=== PATIENT | male | born 1940 | race Caucasian/White ===

== ENCOUNTER 2017-11-28 16:20 | Inpatient (IN) ==
[2017-11-28] MEDS ORDERED: SALINE FLUSH 10ml SYRINGE IVF PRN (16:41)
[2017-11-28] MEDS ORDERED: METHYLPREDNISOLONE SOD SUCC 125mg/2ml INJECTION IVP ONE (16:41)
[2017-11-28] MEDS ORDERED: ALBUTEROL/IPRATROPIUM 2.5mg-0.5mg/3ml NEB AEROSOL SCH ×2 (16:45→21:00)
--- NOTE | 2017-11-28 16:47 | Emergency Department Report ---
SOB HPI - General Chief Complaint: Shortness of Breath/Dyspnea <Angelo Burger Q - 11/30/17 06:04 > Stated Complaint: difficulty breathing <Angelo Burger Q - 11/30/17 06:04> Time Seen by Provider: 11/28/17 16:30 <Angelo Burger Q - 11/30/17 06:04> Source: patient, family () <Kathy Guardado 11/28/17 16:50> Mode of arrival: ambulatory <Kathy Guardado 11/28/17 16:50> Limitations: no limitations <Kathy Guardado 11/28/17 16:50> - History of Present Illness Mr. Marino is a 76 year old male who comes to the ER with cc: shortness of air intermittently since dx pneumonia 3 weeks ago. Was not hospitalized but did take one week of abx, steroids and started on albuterol inhaler/nebulizer. He does not have home o2. Was seen last week by PCP Jannet Parks at for follow up and exertional o2 sats showed desaturation to 70s per . He was to get started on home o2. reports this never happened. Patient has been a lifelong smoker > 55 pack years and still smokes a few cigarettes daily. continues to smoke in the home. (Patient and do smell strongly of cigarette smoke.) Patient denies chest pain today, reports he did complain of some chest discomfort yesterday briefly at 3 pm. No recent fevers, no headaches, no body aches. Does have a cough. Does not have peripheral edema. <Kathy Guardado 11/28/17 16:50> MD Complaint: shortness of breath <Kathy Guardado 11/28/17 16:50> Onset (ago): week(s) (3) <Kathy Guardado 11/28/17 16:50> Context: recent illness, smoke/fume exposure <Kathy Guardado 11/28/17 16:50> Consistency/Duration: intermittent <Kathy Guardado 11/28/17 16:50> Associated symptoms: cough <Kathy Guardado 11/28/17 16:50> Treatment prior to arrival: bronchodilator <Kathy Guardado /09/18 16:50> - Related Data Home oxygen amount: none <Kathy Guardado 11/28/17 16:50> Home Medications Medication Instructions Recorded Confirmed Atorvastatin [Lipitor] 40 mg PO HS #0 02/20/11/28/17 Aspirin [Aspirin EC] 81 mg PO HS 11/28/17 11/28/17 Atenolol [Tenormin] 50 mg PO DAILY 11/28/17 11/28/17 Glucosa Mary 2Kcl/Chondroitin Mary 1 tab PO DAILY 11/28/17 11/28/17 [Glucosamine Chondroitin Caplet] Lisinopril [Prinivil] 20 mg PO DAILY 11/28/17 11/28/17 [place]-3/Dha/Epa/Fish Oil [Fish Oil 1,000 mg PO HS 11/28/17 11/28/17 1,000 mg Softgel] Vit A/Vit C/Vit E/Zinc/Copper 1 tab PO BID 11/28/17 11/28/17 [Preservision Areds Tablet] <Angelo Burger - 11/30/17 06:04> Allergies Allergy/AdvReac Type Severity Reaction Status Date / Time No Known Allergies Allergy Verified 11/28/17 16:26 <Angelo Burger - 11/30/17 06:04> Review of Systems All systems: reviewed and negative except as stated <Kathy Guardado 11/28/17 16:50> Constitutional: Denies: fever <GuardadoKathy 11/28/17 16:50> ENT: Denies: throat pain <GeoKathy 11/28/17 16:50> Cardiovascular: Denies: chest pain <GuardadoKathy 11/28/17 16:50> Respiratory: Reports: cough, dyspnea <GeoKathy 11/28/17 16:50> Genitourinary: Denies: dysuria <GuardadoMagnusKathy 11/28/17 16:50> Musculoskeletal: Denies: back pain <Kathy Guardado 11/28/17 16:50> Integumentary: Denies: rash <GuardadoKathy 11/28/17 16:50> Neurological: Denies: headache <Kathy Guardado 11/28/17 16:50> [facility] Patient Stated Medical History Cataracts Yes Hearing Loss Yes Other HEENT Yes: Glaucoma Hypertension Yes Gastroesophageal Reflux Yes Disease Osteoarthritis Yes <Angelo Burger 11/30/17 06:04> - Social History Smoking status: Current every day smoker <Kathy Guardado 11/28/17 16:50> Packs-years: 57 <[facility] 11/28/17 16:50> Substance use type: does not use <Kathy Guardado 11/28/17 16:50> Household members: spouse <Kathy Guardado 11/28/17 16:50> Physical Exam - Limitations Limitations: no limitations <Kathy Guardado 11/28/17 16:50> - General General appearance: alert, in no apparent distress <Kathy Guardado 11/28/17 16:50> - Head Head exam: atraumatic, normocephalic, normal inspection [facility]:50> - Eye Eye exam: Present: normal appearance, PERRL. Absent: scleral icterus, conjunctival injection <Kathy Guardado 11/28/17 16:50> - ENT ENT exam: Present: normal exam, normal oropharynx, mucous membranes moist, TM's normal bilaterally <[facility] 11/28/17 16:50> - Neck Neck exam: Present: normal inspection, full ROM, trachea midline. Absent: tenderness <[facility] 11/28/17 16:50> - Chest Chest inspection: Present: normal inspection. Absent: tenderness, rash <[facility] 11/28/17 16:50> - Respiratory Respiratory exam: Present: respiratory distress (mild), wheezes <[facility] 11/28/17 16:50> - Cardiovascular Cardiovascular exam: Present: regular rate, normal rhythm <GuardadoMagnusKathy L 05/09 16:50> - Abdominal Exam Abdominal exam: Present: soft <GuardadoMagnusKathy L 11/28/17 16:50> - Extremities Exam Extremities exam: Present: normal inspection, full ROM. Absent: tenderness, pedal edema <GuardadoKathy gómez - 11/28/17 16:50> - Skin Skin exam: Present: warm, dry, intact <Katyh Guardado - 11/28/17 16:50> - Neurological Exam Neurological exam: Present: alert, oriented X3 <Kathy Guardado - 11/28/17 16:50 > - Psychiatric Psychiatric exam: Present: normal affect, normal mood <Kathy Guardado - 16:50> Course - Consultations Consultation #1: Dr. Avelar <Kathy Guardado 11/28/17 17:47> Time: 17:45 (check ddimer and CTA if +, otherwise call for admit if -) <Kathy Guardado - 11/28/17 18:04> Vital Signs Temperature 98.5 F 11/28/17 16:26 Pulse Rate 69 11/28/17 16:26 Respiratory Rate 20 11/28/17 16:26 Blood Pressure 154/67 H 11/28/17 16:26 Pulse Oximetry 80 L 11/28/17 16:26 Temperature 96.3 F L 11/29/17 23:39 Pulse Rate 89 11/29/17 23:39 Respiratory Rate 20 11/30/17 04:27 Blood Pressure 137/62 11/29/17 23:39 Pulse Oximetry 90 11/30/17 04:27 <Angelo Burger - 11/30/17 06:04> Shortness of Breath/Dyspnea - Differential Diagnosis Likely: acute exacerbation of chronic obstructive airways disease, community acquired pneumonia <Kathy Guardado - 11/28/17 17:38> - Medical Records Attestation: I reviewed the patient's medical records. <Kathy Guardado - 17:38> - Lab Data Attestation: I reviewed the patient's lab results. <Kathy Guardado - 11/28/17 17:38> Result diagrams: 11/30/17 04:25 11/29/17 05:42 <Angelo Burger - 11/30/17 06:04> Lab Results 11/28/17 11/28/17 11/28/17 Range/Units 17:02 17:02 17:02 WBC 10.6 (4.5-11.0) T/MM3 RBC 4.72 (4.50-5.90) M/MM3 Hgb 15.0 (13.5-17.5) GM/DL Hct 48.0 (41-53) % MCV 101.7 H (80-100) UM3 MCH 31.8 (26-34) UUG MCHC 31.3 (31-37) GM/DL RDW Std Deviation 52.2 H (36.9-50.2) FL Plt Count 215 (130-400) T/MM3 MPV 10.0 (9.4-12.4) UM3 Immature Gran % (Auto) 0.5 (0.0-0.5) % Neut % (Auto) 70.7 H (33-66) % Lymph % (Auto) 13.5 L (23-45) % [place] % (Auto) 11.4 H (0-9.0) % Eos % (Auto) 3.6 (0-4) % Baso % (Auto) 0.3 (0-2) % Neut # (Auto) 7.5 (1.8-7.7) T/MM3 Lymph # (Auto) 1.4 (1-4.8) T/MM3 [place] # (Auto) 1.2 H (0-0.8) T/MM3 Eos # (Auto) 0.4 (0-0.5) T/MM3 Baso # (Auto) 0.0 (0-0.2) T/MM3 Abs Immat Gran (auto) 0.05 H (0.00-0.03) T/MM3 D-Dimer 182 (0-230) NG/ML Turbidity < 20 (0-20) Sodium 148 H (134-144) MEQ/L Potassium 4.6 (3.6-5) MEQ/L Chloride 102 (98-107) MEQ/L Carbon Dioxide 34 H (22-30) MEQ/L Anion Gap 12 (5-15) MEQ/L BUN 11.0 (9-20) MG/DL Creatinine 0.9 (0.8-1.5) mg/dL GFR Calculation 82 BUN/Creatinine Ratio 12 (6-26) RATIO Glucose 111 H (75-110) MG/DL Calculated Osmolality 284 H (261-280) MOSM/KG Calcium 9.1 (8.4-10.2) MG/DL Icterus Index < 2 (0-7) Troponin I < 0.012 (0-0.12) ng/ml NT-Pro-B Natriuret Pep 287 H (0-175) pg/mL Specimen Hemolysis < 15 (0-25) <Angelo Burger Q - 11/30/17 06:04> Lab Results 11/28/17 11/28/17 11/28/17 Range/Units 17:02 17:02 17:02 WBC 10.6 (4.5-11.0) T/MM3 RBC 4.72 (4.50-5.90) M/MM3 Hgb 15.0 (13.5-17.5) GM/DL Hct 48.0 (41-53) % MCV 101.7 H (80-100) UM3 MCH 31.8 (26-34) UUG MCHC 31.3 (31-37) GM/DL RDW Std Deviation 52.2 H (36.9-50.2) FL Plt Count 215 (130-400) T/MM3 MPV 10.0 (9.4-12.4) UM3 Immature Gran % (Auto) 0.5 (0.0-0.5) % Neut % (Auto) 70.7 H (33-66) % Lymph % (Auto) 13.5 L (23-45) % [place] % (Auto) 11.4 H (0-9.0) % Eos % (Auto) 3.6 (0-4) % Baso % (Auto) 0.3 (0-2) % Neut # (Auto) 7.5 (1.8-7.7) T/MM3 Lymph # (Auto) 1.4 (1-4.8) T/MM3 [place] # (Auto) 1.2 H (0-0.8) T/MM3 Eos # (Auto) 0.4 (0-0.5) T/MM3 Baso # (Auto) 0.0 (0-0.2) T/MM3 Abs Immat Gran (auto) 0.05 H (0.00-0.03) T/MM3 D-Dimer 182 (0-230) NG/ML Turbidity < 20 (0-20) Sodium 148 H (134-144) MEQ/L Potassium 4.6 (3.6-5) MEQ/L Chloride 102 (98-107) MEQ/L Carbon Dioxide 34 H (22-30) MEQ/L Anion Gap 12 (5-15) MEQ/L BUN 11.0 (9-20) MG/DL Creatinine 0.9 (0.8-1.5) mg/dL GFR Calculation 82 BUN/Creatinine Ratio 12 (6-26) RATIO Glucose 111 H (75-110) MG/DL Calculated Osmolality 284 H (261-280) MOSM/KG Calcium 9.1 (8.4-10.2) MG/DL Icterus Index < 2 (0-7) Troponin I < 0.012 (0-0.12) ng/ml NT-Pro-B Natriuret Pep 287 H (0-175) pg/mL Specimen Hemolysis < 15 (0-25) <Kathy Guardado L 11/28/17 17:10> - Radiology Data Attestation: I reviewed the patient's radiology results. <Kathy Guardado L 05/09 17:38> CXR -stable chest, no acute cardiopulmonary findings. ([place]) <Kathy Guardado L 11/28/17 17:38> - EKG Data EKG #1 EKG attestation: Yes: I reviewed and interpreted this EKG. <NuclaDana bowenn Q 11/30/17 06:04> Yes: I reviewed and interpreted this EKG. <Kathy Guardado L 05/09 17:10> EKG shows normal: sinus rhythm <Dana Burgern Q 11/30/17 06:04> sinus rhythm <GuardadoKathy L 11/28/17 17:10> Rate: normal <Dana Burgern Q 11/30/17 06:04> normal <Kathy Guardado L 11/28/17 17:10> Rhythm: NSR <Dana Burgern Q 11/30/17 06:04> NSR <Kathy Guardado L 11/28/17 17:10> [place]/QRS: normal <Dana Burgern Q 11/30/17 06:04> normal <GuardadoKathy L 11/28/17 17:10> Interpretation: no acute changes <Angelo Burger Q 11/30/17 06:04> no acute changes, normal EKG <Kathy Guardado - 11/28/17 17:10> Disposition Clinical Impression: Acute exacerbation of chronic obstructive airways disease , Tobacco dependence <Angelo Burger - 11/30/17 06:04> Disposition: 02 To [facility] <Angelo Burger - 11/30/17 06:04> Condition: Stable <Angelo Burger - 11/30/17 06:04> Instructions: <Angelo Burger - 11/30/17 06:04> Prescriptions: No Action Atorvastatin [Lipitor] 40 mg PO HS #0 Glucosa Mary 2Kcl/Chondroitin Mary [Glucosamine Chondroitin Caplet] 1 tab PO DAILY Aspirin [Aspirin EC] 81 mg PO HS Lisinopril [Prinivil] 20 mg PO DAILY Atenolol [Tenormin] 50 mg PO DAILY Vit A/Vit C/Vit E/Zinc/Copper [Preservision Areds Tablet] 1 tab PO BID [place]-3/Dha/Epa/Fish Oil [Fish Oil 1,000 mg Softgel] 1,000 mg PO HS < Angelo Burger - 11/30/17 06:04> Referrals: Jannet Parks APRN [Primary Care Provider] - <Angelo Burger - 11/30/17 06:04> Forms: <Angelo Burger - 11/30/17 06:04> - Seen By: midlevel <Kathy Guardado - 11/28/17 18:04>
[2017-11-28] MEDS ORDERED: ALBUTEROL/IPRATROPIUM 2.5mg-0.5mg/3ml NEB AEROSOL ONE (16:51)
--- NOTE | 2017-11-28 18:25 | History & Physical Report ---
History of Present Illness Date: 11/28/17 Chief complaint: Dyspnea HPI: Patient is a 76-year-old male who presents to the emergency room today for acute evaluation of dyspnea. He reports that he has had increased shortness of breath with cough for approximately 3 weeks. He was diagnosed with "pneumonia" approximately 3 weeks ago at which time he was treated with oral antibiotics, steroids and breathing treatments. Briefly, his symptoms seem to resolve. However, over the last 48 hours. They have worsened. Patient reports increased dyspnea with minimal exertion, and following coughing spells. On arrival to the emergency room today. Room air saturations were 80%. Further workup was obtained. CBC is unremarkable, sodium is slightly elevated at 148, CO2 34. Troponin is negative, d-dimer is normal at 182. EKG revels sinus rhythm. Continue to require 2-3 liters of oxygen by nasal cannula. He is tachypneic 28 times per minute. He does have a known history of tobacco use with a greater than [id number]. Reports ongoing cough for the past 3 weeks. He feels ordered of breath with exertion or following coughing spells. He denies having any fever, chills, chest pain or other can complaints. We did discuss advanced directives he does wish to be a full code. Review of Systems All systems PM: 10-point ROS was reviewed, no additional remarkable complaints except - Cardiovascular Cardiovascular: Present: dyspnea on exertion - Respiratory Respiratory: Present: cough, dyspnea, wheezing Past Medical History Medical History Updates: Hypertension. Hyperlipidemia. Coronary artery disease with history of CABG. Suspect COPD. Chronic tobacco dependence Surgical History: CABG x3-2005. Cardiac [id number]. [place] Family History: Father-heart disease Mother-lung disease Family History: As Above - Social History Smoking status: Current every day smoker Packs-years: 57 Substance use type: does not use Alcohol intake frequency: does not drink Housing: house Household members: spouse Current residence: Apartment/Private Home Social history: Resides in [place], [place] with . Primary care provider, Jannet leal APRN[facility] Considering changing to [facility] [place] [facility] Medications Medication Instructions Recorded Confirmed Type Atorvastatin [Lipitor] 40 mg PO HS #0 02/21/12 11/28/17 History Aspirin [Aspirin EC] 81 mg PO HS 11/28/17 11/28/17 History Atenolol [Tenormin] 50 mg PO DAILY 11/28/17 11/28/17 History Glucosa Mary 2Kcl/Chondroitin Mary 1 tab PO DAILY 11/28/17 11/28/17 History [Glucosamine Chondroitin Caplet] Lisinopril [Prinivil] 20 mg PO DAILY 11/28/17 11/28/17 History [place]-3/Dha/Epa/Fish Oil [Fish Oil 1,000 mg PO HS 11/28/17 11/28/17 History 1,000 mg Softgel] Vit A/Vit C/Vit E/Zinc/Copper 1 tab PO BID 11/28/17 11/28/17 History [Preservision Areds Tablet] Allergies Allergy/AdvReac Type Severity Reaction Status Date / Time No Known Allergies Allergy Verified 11/28/17 16:26 Exam Vital Signs: Temperature 98.5 F 11/28/17 16:26 Pulse Rate 76 11/28/17 17:34 Respiratory Rate 16 11/28/17 17:34 Blood Pressure 158/72 H 11/28/17 17:34 Pulse Oximetry 95 11/28/17 17:34 Telemetry Rhythm: Sinus Rhythm Height/Weight/BMI: Height 1.8 m Weight 92.5 kg - Constitutional Present: no acute distress, well nourished, well developed - Routine HEENT Exam Eye: Present: EOMI ENT: Present: mucous membranes moist, dentition normal - Routine Respiratory Exam Present: wheezes, diminished air movement (bases) - Routine Cardiovascular Exam Present: RRR, S1, S2. Absent: murmur - Routine Abdominal Exam Present: soft, normoactive bowel sounds, non distended. Absent: tenderness - Routine Extremities Exam Present: full ROM, normal capillary refill - Routine Back/Spine/Pelvis Exam Back/Spine: Present: full ROM - Routine Skin Exam Present: intact, dry, warm - Routine Neurological Exam Present: alert, oriented X3, CN II-XII intact, moving all extremities - Routine Psychiatric Exam Present: normal affect, cooperative Results - Labs CBC & Chem 7: 11/28/17 17:02 11/28/17 17:02 Assessment and Plan (1) Respiratory failure with hypoxia Current visit: Yes Status: Acute Assessment and Plan: Impression Acute respiratory failure with hypoxia-requiring 2-3 liters of oxygen. Acute COPD exacerbation Hypernatremia-present on admission Hypertension Coronary artery disease Dyslipidemia Chronic tobacco dependence- 55 pk yr Plan Admit patient. Inpatient status under care of Dr. Avelar for acute respiratory failure with hypoxia requiring oxygen. Patient was started on IV Rocephin for empiric antimicrobial coverage on the emergency room. We will continue this IV daily. Solu-Medrol 125 milligrams IV every 8 hours for pulmonary inflammation. Duoneb nebulizers 4 times a day and Pulmicort twice a day. PRN also available Encourage Tobacco dependence. Patient denies the need for a nicotine patch at time of admission. Will monitor patient. Cardiac telemetry given known history of coronary artery disease. Recheck BMP tomorrow morning to follow hypernatremia Will continue home aspirin, atenolol, Lipitor and lisinopril. Monitor blood pressures SCDs to bilateral lower extremity for DVT prophylaxis BAP 65 score for acute COPD exacerbation. Mortality is class II, indicating low mortality risk at time of admission Patient does wish to be a full code and this orders written Will discuss further orders and plan of care with attending, Dr. Avelar At time of discharge medical care will return to primary care provider, Jannet Parks- SMITA 11/28/2017-7:30 PM-I reviewed this chart, the patient history, and the [employer]'s/PA 's documented findings as above. We discussed and formulated the assessment and plan as above with the additions below.-Dr. Avelar The patient was seen on the medical floor accompanied by his and sister-in- law. He has a 55 pack year of smoking and continues to smoke. He developed what sounds like pneumonia about 3 weeks ago associated with cough and shortness of breath. He was started on breathing treatments and antibiotics and initially felt better and then started getting worse. He bought an oximeter and was noted to have low oxygen saturations. He has had cough with occasional yellow phlegm. He denies any recent fevers, chills or sweats. His appetite has been normal. He states he has been sleeping in a recliner for at least the past 3 weeks due to shortness of breath if he lies down flat. He has macular degeneration and severe vision difficulties. He has visual hallucinations likely secondary to his vision disturbance from macular degeneration. He states he will frequently wake up at night after a nightmare and flail about and knock things over. He will feel very panicked and short of breath. He has never been tested for sleep apnea and does not know if he snores, but he thinks he probably does. These episodes of waking up panicked and short of breath have been coming off and on for more than 3 weeks. On exam the patient is alert and in no acute distress. After talking for a while , he does become somewhat dyspneic. HEENT reveals sclerae to be anicteric and oropharynx is moist. Neck is supple. Chest reveals expiratory wheezes throughout. Cardiovascular reveals a regular rate and rhythm. Abdomen is soft and nontender. Extremities are free of edema. Skin is warm and dry and without rashes. Chest x-ray shows questionable right lower lobe infiltrate versus scarring versus other. D-dimer is normal Impression and plan Acute hypoxic respiratory failure (unknown if he has some component of chronic respiratory failure)-likely secondary to COPD exacerbation. We'll give supplemental oxygen, breathing treatments, Solu-Medrol. Place on continuous oximetry. Regarding orthopnea, will check echocardiogram. The patient would likely benefit from a pulmonary function test when his respiratory status has stabilized. We'll check sputum for Gram stain and WALL AND FLOOR TILER. Check a viral respiratory panel. PT and OT consult in the morning. He may benefit from outpatient sleep study to rule out sleep apnea DVT Prophylaxis: SCD's Resuscitation Status: Full Code - Time spent with patient Time with patient PN: 35 minutes - Physician Narrative Narrative: Date: 11/28/17 Time: 1812 Hospital Course Summary Disclaimer: The visit summary below is not to be considered part of the above Progress Note. Hospital Course: Impression Acute respiratory failure with hypoxia-requiring 2-3 liters of oxygen. Acute COPD exacerbation Hypernatremia-present on admission Hypertension Coronary artery disease Dyslipidemia Chronic tobacco dependence- 55 pk yr Plan Admit patient. Inpatient status under care of Dr. Avelar for acute respiratory failure with hypoxia requiring oxygen. Patient was started on IV Rocephin for empiric antimicrobial coverage on the emergency room. We will continue this IV daily. Solu-Medrol 125 milligrams IV every 8 hours for pulmonary inflammation. Duoneb nebulizers 4 times a day and Pulmicort twice a day. PRN also available Encourage Tobacco dependence. Patient denies the need for a nicotine patch at time of admission. Will monitor patient. Cardiac telemetry given known history of coronary artery disease. Will repeat serial troponin at 1700 today. Recheck BMP tomorrow morning to follow hypernatremia Will continue home aspirin, atenolol, Lipitor and lisinopril. Monitor blood pressures SCDs to bilateral lower extremity for DVT prophylaxis BAP 65 score for acute COPD exacerbation. Mortality is class II, indicating low mortality risk at time of admission Shunt does wish to be a full code and this orders written Will discuss further orders and plan of care with attending, Dr. Avelar At time of discharge medical care will return to primary care provider, Jannet Yadav APRN
[2017-11-28] MEDS ORDERED: ALBUTEROL/IPRATROPIUM 2.5mg-0.5mg/3ml NEB AEROSOL PRN (18:33)
[2017-11-28 18:53] VITALS: BMI 27.5
[2017-11-28] MEDS: CEFTRIAXONE 1 G in NS 100 ML IVP SCH (19:32)
[2017-11-28] MEDS ORDERED: ALBUTEROL 2.5mg/3ml (0.083%) NEB AEROSOL PRN (19:32)
[2017-11-28] MEDS: BUDESONIDE INH.SOLN 0.5mg/2ml NEB AEROSOL SCH (20:36)
[2017-11-28] MEDS: ALBUTEROL/IPRATROPIUM 2.5mg-0.5mg/3ml NEB AEROSOL SCH (20:36)
[2017-11-28] MEDS: ATORVASTATIN 40 MG TABLET PO SCH (21:02)
[2017-11-28] MEDS: ASPIRIN *EC* 81 MG TABLET PO SCH (21:06)
[2017-11-29] MEDS: SALINE FLUSH 10ml SYRINGE IV PRN ×2 (00:44→20:37)
[2017-11-29] MEDS: METHYLPREDNISOLONE SOD SUCC 125mg/2ml INJECTION IVP SCH ×4 (00:44→17:55)
[2017-11-29] MEDS: NS FLUSH BAG 500ml IV PRN (00:46)
[2017-11-29] MEDS: ALBUTEROL/IPRATROPIUM 2.5mg-0.5mg/3ml NEB AEROSOL SCH ×6 (01:03→21:41)
--- NOTE | 2017-11-29 08:23 | XRay Report ---
Indication: soa PROCEDURE: XR chest 2V: Encounter: Initial Comparison: 11/21/2017 and 02/01/2013 Findings: The examination is somewhat expiratory in nature which is causing some prominence of the interstitial markings. There is some atelectasis in the right lung base without definite pleural effusion. Heart size is normal. There is moderate degenerative disc disease of the thoracic spine. The vertebral body heights appear relatively well-preserved. The patient is status post median sternotomy. The trachea is midline. impression: Right basilar atelectasis and/or pneumonia. Follow-up to resolution is recommended. .
[2017-11-29] MEDS: BUDESONIDE INH.SOLN 0.5mg/2ml NEB AEROSOL SCH ×2 (08:43→21:41)
[2017-11-29] MEDS: ATENOLOL 50 MG TABLET PO SCH (09:09)
[2017-11-29] MEDS: CEFTRIAXONE 1 G in NS 100 ML IVP SCH ×2 (09:09→10:57)
[2017-11-29] MEDS: LISINOPRIL 20 MG TABLET PO SCH (09:09)
--- NOTE | 2017-11-29 10:49 | Progress Note ---
- Date 11/29/17 Subjective: F/U: acute respiratory failure with hypoxia, acute COPD exacerbation. Fab is seen while sitting up in his chair, watching TV, having completed all his breakfast. He reports that he is feeling a little better today. He continues to have dyspnea and continues to require 2.5-3L NC oxygen to maintain SAO2. He does not use oxygen at home. He reports that he became increasingly dyspneic and "wheezy" while ambulating this morning despite wearing oxygen. He remains afebrile. No chest pain, abdominal pain, nausea, vomiting or dysuria. His appetite is stable. Labs revealed mild hyperkalemia (K 5.1) though specimen was hemolyzed at 120, an most likely does not reflex an accurate value. Objective Vital signs: Temperature 97 F 11/29/17 08:00 Pulse Rate 86 11/29/17 08:00 Respiratory Rate 18 11/29/17 08:43 Blood Pressure 133/72 11/29/17 08:00 Pulse Oximetry 92 11/29/17 08:43 Rhythm: Sinus Tachycardia Height/Weight/BMI: Height 5 ft 11 in Weight 204 lb 12.951 oz Body Mass Index 27.5 Comments: Sitting up in recliner, watching TV. Conversational dyspnea at 3-4 words with audible wheezing at times; currently on 3L NC. - Constitutional Present: no acute distress, well nourished, well developed, cooperative - Routine HEENT Exam Head: Present: normocephalic, atraumatic Eye: Present: PERRL. Absent: conjunctival icterus ENT: Present: mucous membranes moist, oropharynx clear - Routine Respiratory Exam Present: accessory muscle use, dyspnea, decreased breath sounds, rhonchi, wheezes, diminished air movement Comments: course, wheezing breath sounds bilaterally with diminished air movement in bases ; no cough; conversational dyspnea t 3-4 words and occasional audible wheezing. - Routine Cardiovascular Exam Present: RRR, S1, S2 - Routine Abdominal Exam Present: soft, normoactive bowel sounds, non distended, non tender - Routine Extremities Exam Present: edema (trace), full ROM, pulses intact - Routine Back/Spine/Pelvis Exam Back/Spine: Present: full ROM. Absent: vertebral tenderness - Routine Musculoskeletal Exam Musculoskeletal: Present: moving extremities well - Routine Skin Exam Present: intact, dry, warm. Absent: jaundice Comments: afebrile. - Routine Neurological Exam Present: alert, oriented X3, moving all extremities, normal speech - Routine Lymphatic Exam Lymphatic: Absent: lymphedema - Routine Psychiatric Exam Present: normal affect, cooperative Results - Labs CBC & Chem 7: 11/29/17 05:42 11/29/17 05:42 Assessment and Plan (1) Respiratory failure with hypoxia Current visit: Yes Status: Acute Assessment and Plan: Impression Acute respiratory failure with hypoxia-requiring 2-3 liters of oxygen. Acute COPD exacerbation Hypernatremia-present on admission Hypertension Coronary artery disease Dyslipidemia Chronic tobacco dependence- 55 pk yr Macular degeneration with visual loss/visual hallucinations Plan - 11/29/17: Patient continues to require 2-3L oxygen - denies home oxygen use. Increased dyspnea with ambulation. Course and wheezing breath sounds bilaterally with decreased air movement, specifically in bases. Continue Rocephin for empiric antimicrobial coverage - day 2. Recheck CXR in AM. Patient remains afebrile. Maybe able to discontinue antibiotics. Will try and obtain sputum culture. Continue Solu-Medrol 125 mg IV every 8 hours for pulmonary inflammation. DuoNeb nebulizers 4 times a day and Pulmicort twice a day. PRN also available. Encourage tobacco cessation. RT for smoking cessation counselling. SCDs to bilateral lower extremity for DVT prophylaxis BAP 65 score for acute COPD exacerbation. Mortality is class II, indicating low mortality risk at time of admission. Echocardiogram obtained given orthopnea - results pending. Recommend pulmonary function testing once respiratory status stabilized. Consider pulmonary consult and pulmonary clinic upon discharge. Patient would benefit from outpatient sleep study to evaluate for sleep apnea. Recheck labs in AM to monitor blood counts, electrolytes and renal function. DVT Prophylaxis: SCD's Resuscitation Status: Full Code - Time spent with patient Time with patient PN: 25 minutes - Physician Narrative Physician: Talia Vargas MD Narrative: Date: 11/29/17 Time: 1829 I have independently evaluated and examined this patient. I reviewed the chart, the patient's history, and the [employer]/PA's documented findings as above. We discussed and formulated the assessment and plan as above with additions as below: Mr. Marino was seen earlier today and continues to describe feeling as though his breathing "plugs up"; breathing treatments help and he feels better overall with oxygen. He does have worsening of symptoms with exertion. NAD at rest, speaks forcefully and become slightly short of breath Respirations were nonlabored but there was diffuse expiratory wheezing throughout the anterior and posterior lung arvizu Respiratory viral panel negative Echo with ejection fraction 57%, PA pressure 25, trace TR-discussed with cardiology Oxygenation borderline on 3 L-may require higher flow rate. Chest x-ray reviewed by myself-minor atelectasis but no evidence of infiltrate. Some flattening of the diaphragms. Continue treatment for COPD exacerbation. Appears likely the patient will require oxygen at discharge. Current findings reviewed with the patient's daughter. PT has recommended discharge to IRU when medically stable due to fall risk and deconditioning. Consult Dr. Lyles-notified. Hospital Course Summary Disclaimer: The visit summary below is not to be considered part of the above Progress Note. Hospital Course: Impression Acute respiratory failure with hypoxia-requiring 2-3 liters of oxygen. Acute COPD exacerbation Hypernatremia-present on admission Hypertension Coronary artery disease Dyslipidemia Chronic tobacco dependence- 55 pk yr Plan Admit patient. Inpatient status under care of Dr. Avelar for acute respiratory failure with hypoxia requiring oxygen. Patient was started on IV Rocephin for empiric antimicrobial coverage on the emergency room. We will continue this IV daily. Solu-Medrol 125 milligrams IV every 8 hours for pulmonary inflammation. Duoneb nebulizers 4 times a day and Pulmicort twice a day. PRN also available Encourage Tobacco dependence. Patient denies the need for a nicotine patch at time of admission. Will monitor patient. Cardiac telemetry given known history of coronary artery disease. Will repeat serial troponin at 1700 today. Recheck BMP tomorrow morning to follow hypernatremia Will continue home aspirin, atenolol, Lipitor and lisinopril. Monitor blood pressures SCDs to bilateral lower extremity for DVT prophylaxis BAP 65 score for acute COPD exacerbation. Mortality is class II, indicating low mortality risk at time of admission Shunt does wish to be a full code and this orders written Will discuss further orders and plan of care with attending, Dr. Avelar At time of discharge medical care will return to primary care provider, Jannet Yadav APRN Plan - 11/29/17: Patient continues to require 2-3L oxygen - denies home oxygen use. Increased dyspnea with ambulation. Course and wheezing breath sounds bilaterally with decreased air movement, specifically in bases. Continue Rocephin for empiric antimicrobial coverage - day 2. Recheck CXR in AM. Patient remains afebrile. Maybe able to discontinue antibiotics. Will try and obtain sputum culture. Continue Solu-Medrol 125 mg IV every 8 hours for pulmonary inflammation. DuoNeb nebulizers 4 times a day and Pulmicort twice a day. PRN also available. Encourage tobacco cessation. RT for smoking cessation counselling. SCDs to bilateral lower extremity for DVT prophylaxis BAP 65 score for acute COPD exacerbation. Mortality is class II, indicating low mortality risk at time of admission. Echocardiogram obtained given orthopnea - results pending. Recommend pulmonary function testing once respiratory status stabilized. Consider pulmonary consult and pulmonary clinic upon discharge. Patient would benefit from outpatient sleep study to evaluate for sleep apnea. Recheck labs in AM to monitor blood counts, electrolytes and renal function.
--- NOTE | 2017-11-29 14:04 | Echocardiogram ---
DATE OF PROCEDURE November 29, 2017 REFERRING PHYSICIAN Jenny Avelar MD This is a two-dimensional echo with spectral Doppler, color-flow and M-mode. It was obtained in a patient with hypoxia. This was a technically difficult study. Left atrial dimension is normal. Left ventricle end-diastolic dimension is normal. Left ventricular wall thickness is normal. LV systolic function is normal with ejection fraction of 58%. Right atrium is normal. Right ventricle is normal. Aortic root dimension is normal. Mitral valve is morphologically normal. Aortic valve appears to be normal. Tricuspid valve shows trace of tricuspid regurgitation with normal estimated pulmonary artery systolic pressure of 25. Pulmonary valve shows no pulmonary insufficiency. There is no pericardial effusion. IMPRESSION 1. Normal LV systolic function with ejection fraction of 58%. 2. Trace of tricuspid regurgitation with normal estimated pulmonary artery systolic pressure of 25. 3. Technically difficult study. MTDD
[2017-11-29] MEDS: ATORVASTATIN 40 MG TABLET PO SCH (20:36)
[2017-11-29] MEDS: GUAIFENESIN LA 600 MG TABLET PO SCH (20:37)
[2017-11-29] MEDS: ASPIRIN *EC* 81 MG TABLET PO SCH (20:37)
[2017-11-30] MEDS: ALBUTEROL/IPRATROPIUM 2.5mg-0.5mg/3ml NEB AEROSOL SCH ×7 (00:14→22:57)
[2017-11-30] MEDS: METHYLPREDNISOLONE SOD SUCC 125mg/2ml INJECTION IVP SCH ×3 (00:38→17:52)
--- NOTE | 2017-11-30 07:48 | XRay Report ---
EXAM: XR chest 2V HISTORY: pneumonia, COPD COMPARISON: Prior examination dated 11/28/2017 FINDINGS: There is been interval improvement in the aeration at the right lung base with minimal streaky opacities remaining. There is persistent relative elevation of the right hemidiaphragm suggesting mild persistent volume loss at the right lung base. There is blunting of the right costophrenic angle suggesting a small right pleural effusion is present. The remaining lung arvizu are clear. The cardiomediastinal silhouette is stable. The heart remains within normal limits size showing changes of prior coronary artery bypass grafting. The trachea remains midline. There is no mediastinal widening. The pulmonary vascularity is normal. The bony thorax is stable median sternotomy wires in place. There is artifact from cardiac monitoring lead wires over the chest. IMPRESSION: 1. Improving right lung base infiltrate/atelectasis. There is some persistent volume loss of the right lung base and a small right pleural effusion. 2. There is no significant interval change. 3. Prior CABG. .
[2017-11-30] MEDS: BUDESONIDE INH.SOLN 0.5mg/2ml NEB AEROSOL SCH ×2 (07:52→19:19)
--- NOTE | 2017-11-30 09:34 | Pulmonology Consult Note ---
<WhitCaty Dario - Last Filed: 11/30/17 09:30> History of Present Illness Consult date: 11/30/17 Requesting physician: Talia Vargas Reason for consult: COPD, hypoxemia, pneumonia Chief complaint: Shortness of breath History of present illness: Pt. is a pleasant 76-year-old male that was admitted on 11/28/2017 for pneumonia and hypoxia. Pt. states he developed shortness of breath at the beginning of October and his daughter took him into [facility] about 3 weeks ago when they diagnosed him with pneumonia. Pt. was sent home with outpatient treatment of oral antibiotics, steroids, and BTx's. While on medications states he was feeling better, but over the weekend he began to feel worse and oxygen at home was noted to be in the 70s. Pt. states he was advised to come in to the ED at that time. O2 upon arrival to the ED was 80% on room air and was noted to be afebrile. WBC at that time was 10.6, pro BNP 287, and sodium 148. Pt. was then placed on 2L-NC at O2 sats came up to 95%. Pt. is a former smoker (1/2 ppd since 21), but says every once in awhile he will "take a drag of 's cigarettes". Pt. has a history of hypertension and hyperlipidemia, states that he has not been diagnosed with COPD. Pt. is currently sitting up in the chair this am using his incentive spirometer , which he states he uses every hour. Per nursing, with activity and when pt. ambulates he becomes dyspneic and has expiratory wheezing. However, pt. states he feels fine when he gets up. Pt. is currently on 3L-NC, afebrile, and WBC is noted to be elevated at 18.6, states he has a moist cough with no sputum. Pt. denies chest pain, chest tightness, or hemoptysis. Pulmonology has been consulted for further evaluation, thank you for the consult. Review of Systems - Constitutional Constitutional: Present: weakness. Absent: chills, fatigue, fever(s) - EENT Eyes: Absent: blurry vision, pain Ears: Absent: ear pain, tinnitus Nose: Absent: pain, nosebleeds Mouth/Throat: Present: mucosa moist - Cardiovascular Cardiovascular: Present: dyspnea on exertion. Absent: chest pain, palpitations , edema, heart murmur - Respiratory Respiratory: Present: cough, dyspnea on exertion, wheezing (With activity). Absent: chest congestion - Gastrointestinal Gastrointestinal: Absent: abdominal pain, constipation, diarrhea, nausea, vomiting - Musculoskeletal Musculoskeletal: Present: abnormal gait. Absent: joint swelling, limited range of motion - Integumentary/Breasts Integumentary: Absent: erythema, lesions, rash, swelling - Neurological Neurological: Present: weakness. Absent: abnormal speech, confusion, dizziness , headache(s) Additional comments: [place] - Psychiatric Psychiatric: Absent: depression, panic attacks, suicidal ideation - Endocrine Endocrine: Absent: palpitations, polydipsia, polyphagia - Hematologic/Lymphatic Hematologic/Lymphatic: Absent: easy bleeding, easy bruising - Allergic/Immunologic Allergic/Immunologic: Absent: tongue swelling, seasonal rhinorrhea PFSH Patient Stated Medical History Cataracts Yes Hearing Loss Yes Other HEENT Yes: Glaucoma Hypertension Yes Gastroesophageal Reflux Yes Disease Hx Renal Disease No Osteoarthritis Yes Medical History Updates: Hypertension. Hyperlipidemia. Coronary artery disease with history of CABG. Suspect COPD. Chronic tobacco dependence Surgical History: CABG x3-2005. Cardiac [id number]. [place] Family History: Father: at age 74 from an [facility] Mother: at 34 from car accident Sister: at 19 from car accident - Social History Smoking status: Current some day smoker Packs per day: 0.5 Packs-years: 57 Substance use type: does not use Alcohol intake frequency: does not drink Housing: house Household members: spouse Current residence: Apartment/Private Home Medications Home Medications Medication Instructions Recorded Confirmed Type Atorvastatin [Lipitor] 40 mg PO HS #0 02/21/12 11/28/17 History Aspirin [Aspirin EC] 81 mg PO HS 11/28/17 11/28/17 History Atenolol [Tenormin] 50 mg PO DAILY 11/28/17 11/28/17 History Glucosa Mary 2Kcl/Chondroitin Mary 1 tab PO DAILY 11/28/17 11/28/17 History [Glucosamine Chondroitin Caplet] Lisinopril [Prinivil] 20 mg PO DAILY 11/28/17 11/28/17 History [place]-3/Dha/Epa/Fish Oil [Fish Oil 1,000 mg PO HS 11/28/17 11/28/17 History 1,000 mg Softgel] Vit A/Vit C/Vit E/Zinc/Copper 1 tab PO BID 11/28/17 11/28/17 History [Preservision Areds Tablet] Allergies Allergy/AdvReac Type Severity Reaction Status Date / Time No Known Allergies Allergy Verified 11/28/17 16:26 Exam Vital signs: Temperature 96.9 F 11/30/17 07:43 Pulse Rate 82 11/30/17 07:43 Respiratory Rate 20 11/30/17 07:53 Blood Pressure 158/70 H 11/30/17 07:43 Pulse Oximetry 91 11/30/17 07:53 - Constitutional no acute distress, well nourished, well developed, obese - Routine HEENT Exam Head: Present: normocephalic, atraumatic Eye: Present: EOMI, PERRL. Absent: periorbital swelling, nystagmus ENT: Present: mucous membranes moist, nares patent Nose: moist mucous membranes - Routine Neck Exam Present: supple, full ROM, trachea midline. Absent: JVD, carotid bruit, swelling, tracheal deviation - Routine Respiratory Exam Present: decreased breath sounds (Right lower base), CTA bilaterally - Routine Cardiovascular Exam Present: RRR, S1, S2. Absent: murmur, no murmur, gallop, tachycardia - Routine Abdominal Exam Present: soft, normoactive bowel sounds, non distended, non tender - Routine Extremities Exam Present: no edema, non tender, full ROM, normal capillary refill. Absent: cyanosis, clubbing - Routine Back/Spine/Pelvis Exam Back/Spine: Present: full ROM - Routine Skin Exam Present: intact, dry, warm, normal turgor, scars (On face) - Routine Neurological Exam Present: alert, oriented X3, abnormal gait, moving all extremities, normal speech [place] - Routine Psychiatric Exam Present: normal affect, normal thought process, cooperative, good insight, good judgment Results - Laboratory Findings CBC and BMP: 11/30/17 04:25 11/30/17 06:17 PT/INR, D-dimer D-Dimer 182 NG/ML (0-230) 11/28/17 17:02 Abnormal lab findings: Abnormal Labs 11/29/17 11/29/17 11/30/17 05:42 05:42 04:25 WBC 18.6 H D RBC 4.38 L MCV 102.6 H 101.8 H RDW Std Deviation 52.1 H 52.4 H Neutrophils % (Manual) 93.0 H 91.0 H Lymphocytes % (Manual) 5.0 L 1.0 L Neutrophils # (Manual) 9.3 H 16.9 H Lymphocytes # (Manual) 0.5 L 0.2 L Monocytes # (Manual) 1.1 H Potassium 5.1 H Carbon Dioxide BUN Creatinine 0.7 L D BUN/Creatinine Ratio Glucose 158 H Calculated Osmolality Specimen Hemolysis 120 H 11/30/17 06:17 WBC RBC MCV RDW Std Deviation Neutrophils % (Manual) Lymphocytes % (Manual) Neutrophils # (Manual) Lymphocytes # (Manual) Monocytes # (Manual) Potassium Carbon Dioxide 34 H BUN 24.0 H D Creatinine BUN/Creatinine Ratio 27 H Glucose 166 H Calculated Osmolality 285 H Specimen Hemolysis 32 H - Diagnostic Findings Chest x-ray: report reviewed, image reviewed (Impoving right lung base infiltrates/atelectasis, small right pleural effusion.) Assessment and Plan - Assessment and Plan Acute hypoxic respiratory failure Acute COPD exacerbation - New diagnosis, unknown severity Pneumonia Hypertension Plan: 1. Acute hypoxic respiratory failure - Pt. currently on 3L-NC, will wean as tolerated to keep SpO2 >90%. Possibly will need home O2 - CXR showed improving right lung base infiltrates/atelectasis and a small right pleural effusion 2. Acute COPD exacerbation - Solu-medrol 125mg Q8H, wean to 60mg - Duoneb BT's Q4 and QID PRN - Pulmicort BID - Would benefit from OP f/u with PFT's after acute issues are resolved 3. Pneumonia - Sputum culture resulted few gram + cocci and rods and moderate neutrophils. - Currently on Rocephin 1 gm daily, will add Azithromycin - IS at bedside will add acapella for improved mucous clearance - WBC 10.0>18.6, could be attributed to solu-medrol, afebrile - Respiratory viral panel negative 4. Hypertension - Currently on atenolol and lisinopril - Will monitor BP's - Time Spent With Patient Total time spent is greater than 50% in coordination of care (as documented) at patient's floor/unit and/or counseling patient: 25 - 35 minutes <Gregor Lyles - Last Filed: 12/01/17 12:30> PFS Patient Stated Medical History Cataracts Yes Hearing Loss Yes Other HEENT Yes: Glaucoma Hypertension Yes Gastroesophageal Reflux Yes Disease Hx Renal Disease No Osteoarthritis Yes Exam Vital signs: Temperature 97.4 F 12/01/17 07:00 Pulse Rate 75 12/01/17 08:00 Respiratory Rate 20 12/01/17 10:47 Blood Pressure 157/88 H 12/01/17 07:00 Pulse Oximetry 90 12/01/17 11:24 Results - Laboratory Findings CBC and BMP: 12/01/17 03:59 12/01/17 03:59 ABG ABG pH 7.376 (7.350-7.450) 12/01/17 07:17 ABG pCO2 57 MMHG (34.0-45.0) H 12/01/17 07:17 ABG pO2 67.1 MMHG (80.0-100.0) L 12/01/17 07:17 ABG O2 Saturation 92.0 % (95.0-98.0) L 12/01/17 07:17 PT/INR, D-dimer D-Dimer 182 NG/ML (0-230) 11/28/17 17:02 Abnormal lab findings: Abnormal Labs 11/29/17 11/29/17 11/30/17 05:42 05:42 04:25 WBC 18.6 H D RBC 4.38 L MCV 102.6 H 101.8 H RDW Std Deviation 52.1 H 52.4 H Neutrophils % (Manual) 93.0 H 91.0 H Lymphocytes % (Manual) 5.0 L 1.0 L Neutrophils # (Manual) 9.3 H 16.9 H Lymphocytes # (Manual) 0.5 L 0.2 L Monocytes # (Manual) 1.1 H ABG pCO2 ABG pO2 ABG HCO3 ABG Total CO2 ABG O2 Saturation ABG Base Excess Potassium 5.1 H Carbon Dioxide BUN Creatinine 0.7 L D BUN/Creatinine Ratio Glucose 158 H Calculated Osmolality Specimen Hemolysis 120 H 11/30/17 12/01/17 12/01/17 06:17 03:59 03:59 WBC 16.8 H RBC 4.43 L MCV 101.4 H RDW Std Deviation 52.4 H Neutrophils % (Manual) 94.0 H Lymphocytes % (Manual) 2.0 L Neutrophils # (Manual) 15.8 H Lymphocytes # (Manual) 0.3 L Monocytes # (Manual) ABG pCO2 ABG pO2 ABG HCO3 ABG Total CO2 ABG O2 Saturation ABG Base Excess Potassium Carbon Dioxide 34 H 35 H BUN 24.0 H D 27.0 H Creatinine BUN/Creatinine Ratio 27 H 27 H Glucose 166 H 155 H Calculated Osmolality 285 H 281 H Specimen Hemolysis 32 H 12/01/17 07:17 WBC RBC MCV RDW Std Deviation Neutrophils % (Manual) Lymphocytes % (Manual) Neutrophils # (Manual) Lymphocytes # (Manual) Monocytes # (Manual) ABG pCO2 57 H ABG pO2 67.1 L ABG HCO3 33.2 H ABG Total CO2 34.9 H ABG O2 Saturation 92.0 L ABG Base Excess 6.1 H Potassium Carbon Dioxide BUN Creatinine BUN/Creatinine Ratio Glucose Calculated Osmolality Specimen Hemolysis Assessment and Plan (1) Pneumonia Status: Acute Assessment and plan: recurrent pneumonia since Sep. CXR showing persistent atelectasis despite treatment. I recommend CT chest to rule out parenchymal or endobronchial lesion. Continue empiric therapy. If the CT warrants, we can pursue bronchoscopy Current Visit: Yes (2) Acute exacerbation of chronic obstructive airways disease Status: Acute Assessment and plan: Recommend neb albuterol/iprat q4h [place] O2 to keep spO2 >90% Current Visit: Yes (3) Respiratory failure with hypoxia Status: Acute Assessment and plan: O2 by nasal cannula. Maintain O2 sats >90%. No need for NIPPV at this time. We will follow closely. He is high risk for developing chronic hypoxemia requiring home oxygen due to underlying COPD (J44.9) Current Visit: Yes - Time Spent With Patient Total time spent is greater than 50% in coordination of care (as documented) at patient's floor/unit and/or counseling patient:
[2017-11-30] MEDS: LISINOPRIL 20 MG TABLET PO SCH (09:40)
[2017-11-30] MEDS: GUAIFENESIN LA 600 MG TABLET PO SCH ×2 (09:40→20:17)
[2017-11-30] MEDS: ATENOLOL 50 MG TABLET PO SCH (09:41)
[2017-11-30] MEDS: CEFTRIAXONE 1 G in NS 100 ML IVP SCH (09:41)
[2017-11-30] MEDS: SALINE FLUSH 10ml SYRINGE IV PRN ×2 (09:42→12:49)
[2017-11-30] MEDS: NS FLUSH BAG 500ml IV PRN (09:43)
[2017-11-30] MEDS ORDERED: INSULIN ASPART 100unit/ml INJECTION SQ PRN ×2 (09:58→17:44)
[2017-11-30] MEDS ORDERED: AZITHROMYCIN IV 500 MG in NS 250ml 250 ML IV SCH (10:00)
--- NOTE | 2017-11-30 11:07 | Progress Note ---
- Date 11/30/17 Subjective: F/U: acute respiratory failure with hypoxia, acute COPD exacerbation. Fab is seen this morning in conjunction with Caty Sherman APRN with Dr. Lyles. He is seen while sitting up in his recliner, having just finished walking with therapy. He appears acutely short of breath with audible wheezing despite being on 3L NC. Therapy reports that he was able to maintain his oxygen levels with the 3L. He denies any acute shortness of breath but is noted to have increased respiratory effort with 3-4 word conversational dyspnea. Overall, he reports that he is doing well. He denies any chest pain, abdominal pain, nausea, vomiting or dysuria. His appetite is good but no bowel movement since prior to admission. He does admit to coughing briefly every morning and states that at home, he will take a puff off his 's cigarette which helps him clear his cough and cough up sputum. He denies much sputum production since admission. No fevers, chills, dizziness or syncope. Repeat CXR this AM revealed improving right lung base infiltrate/atelectasis with some persistent volume loss of the right lung base and small right pleural effusion. Labs today revealed new leukocytosis with significant increase in WBC at 18.6 (previous WBC 10.0). Blood sugars also noted to be elevated and he denies a history of diabetes. Respiratory panel was negative. Sputum culture revealed few gram positive cocci and rods with moderate neutrophils. He remains on Rocephin (day 2) and azithromycin was initiated this morning per pulmonology. Objective Vital signs: Temperature 96.9 F 11/30/17 07:43 Pulse Rate 82 11/30/17 07:43 Respiratory Rate 20 11/30/17 07:53 Blood Pressure 158/70 H 11/30/17 07:43 Pulse Oximetry 91 11/30/17 07:53 Rhythm: Sinus Tachycardia Height/Weight/BMI: Height 5 ft 11 in Weight 207 lb 3.752 oz Body Mass Index 27.5 Comments: Sitting up in recliner, having just returned from walking with therapy; increased respiratory effort with audible wheezing and conversational dyspnea on 3L NC. - Constitutional Present: mild distress, well nourished, well developed, cooperative Comments: Pleasant and cheerful disposition. - Routine HEENT Exam Head: Present: normocephalic, atraumatic Eye: Present: PERRL. Absent: conjunctival icterus ENT: Present: mucous membranes moist - Routine Respiratory Exam Present: accessory muscle use, dyspnea, decreased breath sounds, respiratory distress (mild), wheezes, diminished air movement Comments: Course breath sounds bilaterally with scattered wheezing and rhonchi; no cough; conversational dyspnea at 3-4 words while on 3L NC. - Routine Cardiovascular Exam Present: S1, S2, tachycardia - Routine Abdominal Exam Present: soft, normoactive bowel sounds, non distended, non tender - Routine Extremities Exam Present: edema (trace), pulses intact Comments: SCDs in place bilaterally. - Routine Back/Spine/Pelvis Exam Back/Spine: Present: full ROM. Absent: vertebral tenderness - Routine Musculoskeletal Exam Musculoskeletal: Present: moving extremities well - Routine Skin Exam Present: intact, dry, warm Comments: Afebrile. - Routine Neurological Exam Present: alert, oriented X3, moving all extremities, hearing grossly intact, normal speech - Routine Lymphatic Exam Lymphatic: Absent: lymphedema - Routine Psychiatric Exam Present: normal affect, cooperative Results - Labs CBC & Chem 7: 11/30/17 04:25 11/30/17 06:17 Microbiology Results: Microbiology 11/29/17 14:58 Sputum, Expectorated Gram Stain - Final 11/29/17 14:58 Sputum, Expectorated Sputum Culture - Preliminary Culture Initiated - Results Pending - Echocardiogram History of Echocardiogram: Date of Exam: 11/29/17. Type of Exam(s): US echo doppler complete. DATE OF PROCEDURE. November 29, 2017. REFERRING PHYSICIAN. Jenny Avelar MD. This is a two-dimensional echo with spectral Doppler, color-flow and M-mode. It was obtained in a patient with hypoxia. This was a technically difficult study. Left atrial dimension is normal. Left ventricle end-diastolic dimension is normal. Left ventricular wall thickness is normal. LV systolic function is normal with ejection fraction of 58%. Right atrium is normal. Right ventricle is normal. Aortic root dimension is normal. Mitral valve is morphologically normal. Aortic valve appears to be normal. Tricuspid valve shows trace of tricuspid regurgitation with normal estimated pulmonary artery systolic pressure of 25. Pulmonary valve shows no pulmonary insufficiency. There is no pericardial effusion. IMPRESSION. 1. Normal LV systolic function with ejection fraction of 58%. 2. Trace of tricuspid regurgitation with normal estimated pulmonary artery systolic pressure of 25. 3. Technically difficult study. - Imaging and Cardiology Chest x-ray Status: image reviewed by me Additional comments: Date of Exam: 11/30/17 Type of Exam(s): XR chest 2V Reason for Exam(s): pneumonia, COPD FINDINGS: There is been interval improvement in the aeration at the right lung base with minimal streaky opacities remaining. There is persistent relative elevation of the right hemidiaphragm suggesting mild persistent volume loss at the right lung base. There is blunting of the right costophrenic angle suggesting a small right pleural effusion is present. The remaining lung arvizu are clear. The cardiomediastinal silhouette is stable. The heart remains within normal limits size showing changes of prior coronary artery bypass grafting. The trachea remains midline. There is no mediastinal widening. The pulmonary vascularity is normal. The bony thorax is stable median sternotomy wires in place. There is artifact from cardiac monitoring lead wires over the chest. IMPRESSION: 1. Improving right lung base infiltrate/atelectasis. There is some persistent volume loss of the right lung base and a small right pleural effusion. 2. There is no significant interval change. 3. Prior CABG. Assessment and Plan (1) Respiratory failure with hypoxia Current visit: Yes Status: Acute Assessment and Plan: Impression Acute respiratory failure with hypoxia-requiring 2-3 liters of oxygen. Acute COPD exacerbation. Leukocytosis - NEW DIAGNOSIS 11/30/17. Concern for pneumonia vs. atelectasis. Hypernatremia-present on admission - resolved. Hypertension. Coronary artery disease. Dyslipidemia. Chronic tobacco dependence- 55 pk yr. Macular degeneration with visual loss/visual hallucinations. Plan - 11/30/17: Patient continues to require 2-3L oxygen - denies home oxygen use. Increased dyspnea with ambulation. Course and wheezing breath sounds bilaterally with decreased air movement, specifically in bases. Repeat CXR reveals improving right lung base infiltrate/atelectasis with some persistent volume loss of right lung base and small right pleural effusion. Dr. Lyles (pulm) consulted. Recommends follow up as outpatient for PFT's once acute issues are resolved. Patient will likely require home oxygen upon discharge. Solu-Medrol weaned to 60mg IV Q8H for pulmonary inflammation. Continuation of respiratory cares, DuoNeb treatments QID and PRN, Pulmicort BID. Acapella and incentive spirometry for pulmonary toileting. Sputum culture resulted few gram + cocci and rods and moderate neutrophils. Continue Rocephin for empiric antimicrobial coverage - day 3. Will add azithromycin 500mg IV for additional coverage of pathogens for CAP. Patient remains afebrile. SCDs to bilateral lower extremity for DVT prophylaxis Echocardiogram obtained given orthopnea - normal LV systolic function with EF 58 %, trace tricuspid regurg with normal estimated pulmonary artery systolic pressure of 25. Patient would benefit from outpatient sleep study to evaluate for sleep apnea. Recheck labs in AM to monitor blood counts, electrolytes and renal function. Continue to encourage therapies for strengthening and mobility. DVT Prophylaxis: SCD's Resuscitation Status: Full Code - Time spent with patient Time with patient PN: 30 minutes - Physician Narrative Physician: Talia Vargas MD Narrative: Date: 11/30/17 Time: 1744 I have independently evaluated and examined this patient. I reviewed the chart, the patient's history, and the [employer]/PA's documented findings as above. We discussed and formulated the assessment and plan as above with additions as below: Mr. Marino was seen with his at bedside. He asked that he not get any laxatives/stool softeners while he is in the hospital. Breathing is better but he has residual cough and wheezing; he was frustrated that he hasn't been able to walk today (although physical therapy worked with him several hours earlier). NAD, anxious; respirations nonlabored, diminished airflow throughout and breath sounds were clear at the time of my evaluation. Leukocytosis consistent with steroid use. Chest x-ray reviewed by myself demonstrating modest elevation of the right hemidiaphragm with probable atelectasis and small right pleural effusion. Prior sternotomy. Plans discussed with pulmonary earlier today; will discuss potential need for home oxygen with case management for family reassurance. ABG in a.m.-bicarbonate on chemistries 34. Hospital Course Summary Disclaimer: The visit summary below is not to be considered part of the above Progress Note. Hospital Course: Impression Acute respiratory failure with hypoxia-requiring 2-3 liters of oxygen. Acute COPD exacerbation Hypernatremia-present on admission Hypertension Coronary artery disease Dyslipidemia Chronic tobacco dependence- 55 pk yr Plan Admit patient. Inpatient status under care of Dr. Avelar for acute respiratory failure with hypoxia requiring oxygen. Patient was started on IV Rocephin for empiric antimicrobial coverage on the emergency room. We will continue this IV daily. Solu-Medrol 125 milligrams IV every 8 hours for pulmonary inflammation. Duoneb nebulizers 4 times a day and Pulmicort twice a day. PRN also available Encourage Tobacco dependence. Patient denies the need for a nicotine patch at time of admission. Will monitor patient. Cardiac telemetry given known history of coronary artery disease. Will repeat serial troponin at 1700 today. Recheck BMP tomorrow morning to follow hypernatremia Will continue home aspirin, atenolol, Lipitor and lisinopril. Monitor blood pressures SCDs to bilateral lower extremity for DVT prophylaxis BAP 65 score for acute COPD exacerbation. Mortality is class II, indicating low mortality risk at time of admission Shunt does wish to be a full code and this orders written Will discuss further orders and plan of care with attending, Dr. Avelar At time of discharge medical care will return to primary care provider, Jannet Yadav APRN Plan - 11/29/17: Patient continues to require 2-3L oxygen - denies home oxygen use. Increased dyspnea with ambulation. Course and wheezing breath sounds bilaterally with decreased air movement, specifically in bases. Continue Rocephin for empiric antimicrobial coverage - day 2. Recheck CXR in AM. Patient remains afebrile. Maybe able to discontinue antibiotics. Will try and obtain sputum culture. Continue Solu-Medrol 125 mg IV every 8 hours for pulmonary inflammation. DuoNeb nebulizers 4 times a day and Pulmicort twice a day. PRN also available. Encourage tobacco cessation. RT for smoking cessation counselling. SCDs to bilateral lower extremity for DVT prophylaxis BAP 65 score for acute COPD exacerbation. Mortality is class II, indicating low mortality risk at time of admission. Echocardiogram obtained given orthopnea - results pending. Recommend pulmonary function testing once respiratory status stabilized. Consider pulmonary consult and pulmonary clinic upon discharge. Patient would benefit from outpatient sleep study to evaluate for sleep apnea. Recheck labs in AM to monitor blood counts, electrolytes and renal function. Plan - 11/30/17: Patient continues to require 2-3L oxygen - denies home oxygen use. Increased dyspnea with ambulation. Course and wheezing breath sounds bilaterally with decreased air movement, specifically in bases. Repeat CXR reveals improving right lung base infiltrate/atelectasis with some persistent volume loss of right lung base and small right pleural effusion. Dr. Lyles (pulm) consulted. Recommends follow up as outpatient for PFT's once acute issues are resolved. Patient will likely require home oxygen upon discharge. Solu-Medrol weaned to 60mg IV Q8H for pulmonary inflammation. Continuation of respiratory cares, DuoNeb treatments QID and PRN, Pulmicort BID. Acapella and incentive spirometry for pulmonary toileting. Sputum culture resulted few gram + cocci and rods and moderate neutrophils. Continue Rocephin for empiric antimicrobial coverage - day 3. Will add azithromycin atypical pathogens for CAP. Patient remains afebrile. SCDs to bilateral lower extremity for DVT prophylaxis Echocardiogram obtained given orthopnea - normal LV systolic function with EF 58 %, trace tricuspid regurg with normal estimated pulmonary artery systolic pressure of 25. Patient would benefit from outpatient sleep study to evaluate for sleep apnea. Continue to encourage therapies for strengthening and mobility.
[2017-11-30] MEDS: SENNA + DOCUSATE TABLET PO SCH (12:48)
[2017-11-30] MEDS: POLYETHYL GLYCOL 3350 17gm PACKET PO SCH (12:49)
[2017-11-30] MEDS: ATORVASTATIN 40 MG TABLET PO SCH (20:17)
[2017-11-30] MEDS: ASPIRIN *EC* 81 MG TABLET PO SCH (20:18)
[2017-12-01] MEDS: SALINE FLUSH 10ml SYRINGE IV PRN ×2 (00:40→08:30)
[2017-12-01] MEDS: METHYLPREDNISOLONE SOD SUCC 125mg/2ml INJECTION IVP SCH ×2 (00:40→08:31)
[2017-12-01] MEDS: ALBUTEROL/IPRATROPIUM 2.5mg-0.5mg/3ml NEB AEROSOL SCH ×6 (03:06→22:40)
[2017-12-01] MEDS: AZITHROMYCIN 250 MG TABLET PO SCH (06:16)
[2017-12-01] MEDS: BUDESONIDE INH.SOLN 0.5mg/2ml NEB AEROSOL SCH ×2 (07:19→19:00)
[2017-12-01] MEDS: ATENOLOL 50 MG TABLET PO SCH (08:28)
[2017-12-01] MEDS: GUAIFENESIN LA 600 MG TABLET PO SCH ×2 (08:29→22:07)
[2017-12-01] MEDS: CEFTRIAXONE 1 G in NS 100 ML IVP SCH (08:29)
[2017-12-01] MEDS: LISINOPRIL 20 MG TABLET PO SCH (08:29)
[2017-12-01] MEDS: POLYETHYL GLYCOL 3350 17gm PACKET PO SCH (08:30)
[2017-12-01] MEDS: SENNA + DOCUSATE TABLET PO SCH (08:30)
--- NOTE | 2017-12-01 12:00 | Progress Note ---
- Date 12/01/17 Subjective: F/U: acute respiratory failure with hypoxia, acute COPD exacerbation. Fab is seen this morning while sitting up in his recliner, watching TV. His breathing appears much less labored today without conversational dyspnea or audible wheezing. He reports that he was able to walk further today and has been actively using both his acapella and incentive spirometry. He denies any new complaints or concerns. No chest pain, increased shortness of breath, abdominal pain, nausea, vomiting or diarrhea. His appetite remains stable, though no bowel movement since admission. He admits to passing gas. Leukocytosis improving (WBC decreased from 18 to 16.8). Electrolytes are stable. Sputum culture is negative x 1 day. ABG consistent with compensated chronic lung disease. Objective Vital signs: Temperature 97.4 F 12/01/17 07:00 Pulse Rate 75 12/01/17 08:00 Respiratory Rate 20 12/01/17 10:47 Blood Pressure 157/88 H 12/01/17 07:00 Pulse Oximetry 90 12/01/17 11:24 Rhythm: Sinus Tachycardia Height/Weight/BMI: Height 5 ft 11 in Weight 208 lb 5.389 oz Body Mass Index 27.5 Comments: Sitting up in recliner, watching TV. Breathing easily on 3L NC. - Constitutional Present: no acute distress, well nourished, well developed, cooperative - Routine HEENT Exam Head: Present: normocephalic, atraumatic Eye: Present: PERRL. Absent: conjunctival icterus ENT: Present: mucous membranes moist, oropharynx clear - Routine Respiratory Exam Present: wheezes. Absent: respiratory distress Comments: Course scattered expiratory wheezing; no cough or conversational dyspnea; more air movement noted today. - Routine Cardiovascular Exam Present: RRR, S1, S2 - Routine Abdominal Exam Present: soft, normoactive bowel sounds, non distended, non tender - Routine Extremities Exam Present: edema (trace), full ROM, pulses intact - Routine Back/Spine/Pelvis Exam Back/Spine: Present: full ROM. Absent: vertebral tenderness - Routine Musculoskeletal Exam Musculoskeletal: Present: moving extremities well - Routine Skin Exam Present: dry, warm Comments: Afebrile. - Routine Neurological Exam Present: alert, moving all extremities, hearing grossly intact, normal speech - Routine Lymphatic Exam Lymphatic: Absent: lymphedema - Routine Psychiatric Exam Present: normal affect, cooperative Results - Labs CBC & Chem 7: 12/01/17 03:59 12/01/17 03:59 Microbiology Results: Microbiology 11/29/17 14:58 Sputum, Expectorated Gram Stain - Final 11/29/17 14:58 Sputum, Expectorated Sputum Culture - Preliminary No Growth After 1 Day - ABG Interpretation ABG results: 12/01/17 07:17 ABG pH 7.376 ABG pCO2 57 H ABG pO2 67.1 L ABG HCO3 33.2 H ABG Total CO2 34.9 H ABG O2 Saturation 92.0 L ABG Base Excess 6.1 H Assessment and Plan (1) Respiratory failure with hypoxia Current visit: Yes Status: Acute Assessment and Plan: Impression Acute respiratory failure with hypoxia-requiring 2-3 liters of oxygen. Acute COPD exacerbation. Chronic hypercarbic respiratory failure-RLL 12/01/17 Leukocytosis - improving. Anemia. Concern for pneumonia vs. atelectasis. Hypernatremia-present on admission - resolved. Hypertension. Coronary artery disease. Dyslipidemia. Chronic tobacco dependence- 55 pk yr. Macular degeneration with visual loss/visual hallucinations. Plan - 12/01/17: Overall, Oglesby's breathing appears to be improved today. Patient continues to require 2-3L oxygen - denies home oxygen use. Able to ambulate further today with decreased dyspnea. Course and wheezing breath sounds bilaterally with decreased air movement. Continuation of respiratory cares, DuoNeb treatments QID and PRN, Pulmicort BID. Acapella and incentive spirometry for pulmonary toileting. Patient discussed with Dr. Lyles (pul) who recommended obtaining CT chest for further evaluation of right lower lobe effusion vs. infiltrate. CT results pending. Dr. Lyles recommends follow up as outpatient for PFT's once acute issues are resolved. Patient will likely require home oxygen upon discharge. Sputum culture negative x 1 day. Continue to monitor results. Continue Rocephin (day 4) and azithromycin (day 2) for empiric antimicrobial coverage. Patient remains afebrile. Leukocytosis improving (decreased to 16.8). Continue to monitor. SCDs to bilateral lower extremity for DVT prophylaxis Patient would benefit from outpatient sleep study to evaluate for sleep apnea. Recheck labs in AM to monitor blood counts, electrolytes and renal function. Continue to encourage therapies for strengthening and mobility. DVT Prophylaxis: SCD's Resuscitation Status: Full Code - Time spent with patient Time with patient PN: 30 minutes - Physician Narrative Physician: Talia Vargas MD Narrative: Date: 12/01/17 Time: 1750 I have independently evaluated and examined this patient. I reviewed the chart, the patient's history, and the JEWEL [employer]IPPER/PA's documented findings as above. We discussed and formulated the assessment and plan as above with additions as below: Mr. Marino was seen earlier today at which time he described decreasing shortness of breath and only occasional cough without sputum production. He has been able to ambulate a number of times today. Ambulatory oximetry was obtained this afternoon revealing oxygen saturation of 91% on room air; with ambulation saturation dropped and he required 5 L supplemental oxygen to maintain saturation at/above 90%. Oxygen saturation is typically 88-93% on 3 L per recorded vital signs. NAD, alert, fluent speech Respirations nonlabored, decreased airflow throughout-especially at the right base; breath sounds clear at time of my evaluation and no wheezing present Blood gas this morning revealed pH 7.37, PCO2 57, and PO2 67 on 3 L consistent with chronic hypercarbic respiratory failure. Solu-Medrol converted to oral prednisone; CT chest obtained at request of pulmonary-films reviewed by myself and there are mild bullous changes reported in addition to some nonspecific atelectasis or pneumonitis at the right base and along the left major fissure. Radiology recommended follow-up to resolution to exclude neoplasm. Gallstones were incidentally noted. Overnight oximetry to be obtained tonight to determine if 3 L supplemental oxygen is adequate with sleep. Discharge needs reviewed with case management. Hospital Course Summary Disclaimer: The visit summary below is not to be considered part of the above Progress Note. Hospital Course: Impression Acute respiratory failure with hypoxia-requiring 2-3 liters of oxygen. Acute COPD exacerbation Hypernatremia-present on admission Hypertension Coronary artery disease Dyslipidemia Chronic tobacco dependence- 55 pk yr Plan Admit patient. Inpatient status under care of Dr. Avelar for acute respiratory failure with hypoxia requiring oxygen. Patient was started on IV Rocephin for empiric antimicrobial coverage on the emergency room. We will continue this IV daily. Solu-Medrol 125 milligrams IV every 8 hours for pulmonary inflammation. Duoneb nebulizers 4 times a day and Pulmicort twice a day. PRN also available Encourage Tobacco dependence. Patient denies the need for a nicotine patch at time of admission. Will monitor patient. Cardiac telemetry given known history of coronary artery disease. Will repeat serial troponin at 1700 today. Recheck BMP tomorrow morning to follow hypernatremia Will continue home aspirin, atenolol, Lipitor and lisinopril. Monitor blood pressures SCDs to bilateral lower extremity for DVT prophylaxis BAP 65 score for acute COPD exacerbation. Mortality is class II, indicating low mortality risk at time of admission Shunt does wish to be a full code and this orders written Will discuss further orders and plan of care with attending, Dr. Avelar At time of discharge medical care will return to primary care provider, Jannet Yadav APRN Plan - 11/29/17: Patient continues to require 2-3L oxygen - denies home oxygen use. Increased dyspnea with ambulation. Course and wheezing breath sounds bilaterally with decreased air movement, specifically in bases. Continue Rocephin for empiric antimicrobial coverage - day 2. Recheck CXR in AM. Patient remains afebrile. Maybe able to discontinue antibiotics. Will try and obtain sputum culture. Continue Solu-Medrol 125 mg IV every 8 hours for pulmonary inflammation. DuoNeb nebulizers 4 times a day and Pulmicort twice a day. PRN also available. Encourage tobacco cessation. RT for smoking cessation counselling. SCDs to bilateral lower extremity for DVT prophylaxis BAP 65 score for acute COPD exacerbation. Mortality is class II, indicating low mortality risk at time of admission. Echocardiogram obtained given orthopnea - results pending. Recommend pulmonary function testing once respiratory status stabilized. Consider pulmonary consult and pulmonary clinic upon discharge. Patient would benefit from outpatient sleep study to evaluate for sleep apnea. Recheck labs in AM to monitor blood counts, electrolytes and renal function. Plan - 11/30/17: Patient continues to require 2-3L oxygen - denies home oxygen use. Increased dyspnea with ambulation. Course and wheezing breath sounds bilaterally with decreased air movement, specifically in bases. Repeat CXR reveals improving right lung base infiltrate/atelectasis with some persistent volume loss of right lung base and small right pleural effusion. Dr. Lyles (pulm) consulted. Recommends follow up as outpatient for PFT's once acute issues are resolved. Patient will likely require home oxygen upon discharge. Solu-Medrol weaned to 60mg IV Q8H for pulmonary inflammation. Continuation of respiratory cares, DuoNeb treatments QID and PRN, Pulmicort BID. Acapella and incentive spirometry for pulmonary toileting. Sputum culture resulted few gram + cocci and rods and moderate neutrophils. Continue Rocephin for empiric antimicrobial coverage - day 3. Will add azithromycin atypical pathogens for CAP. Patient remains afebrile. SCDs to bilateral lower extremity for DVT prophylaxis Echocardiogram obtained given orthopnea - normal LV systolic function with EF 58 %, trace tricuspid regurg with normal estimated pulmonary artery systolic pressure of 25. Patient would benefit from outpatient sleep study to evaluate for sleep apnea. Continue to encourage therapies for strengthening and mobility. Plan - 12/01/17: Overall, Oglesby's breathing appears to be improved today. Patient continues to require 2-3L oxygen - denies home oxygen use. Able to ambulate further today with decreased dyspnea. Course and wheezing breath sounds bilaterally with decreased air movement. Continuation of respiratory cares, DuoNeb treatments QID and PRN, Pulmicort BID. Acapella and incentive spirometry for pulmonary toileting. Patient discussed with Dr. Lyles (pul) who recommended obtaining CT chest for further evaluation of right lower lobe effusion vs. infiltrate. CT results pending. Dr. Lyles recommends follow up as outpatient for PFT's once acute issues are resolved. Ambulatory oximetry was obtained this afternoon revealing oxygen saturation of 91% on room air; with ambulation saturation dropped and he required 5 L supplemental oxygen to maintain saturation at/above 90%. Overnight oximetry to be obtained tonight to determine nocturnal oxygen need. Sputum culture negative x 1 day. Continue to monitor results. Continue Rocephin (day 4) and azithromycin (day 2) for empiric antimicrobial coverage. Patient remains afebrile. Leukocytosis improving (decreased to 16.8). Continue to monitor. SCDs to bilateral lower extremity for DVT prophylaxis Patient would benefit from outpatient sleep study to evaluate for sleep apnea. Recheck labs in AM to monitor blood counts, electrolytes and renal function. Continue to encourage therapies for strengthening and mobility.
[2017-12-01] MEDS: PredniSONE 20 MG TABLET PO SCH (16:09)
--- NOTE | 2017-12-01 17:01 | CT Scan Report ---
Indication: pleural effusion PROCEDURE: CT chest wo con: Encounter: Initial Comparison: None. Findings: There is nonspecific atelectasis and/or pneumonia in the posterior inferior right lung base along the diaphragm. No definite pleural effusion. Heart size is normal. There are extensive coronary artery calcifications. Patient is status post median sternotomy. There are mild changes of emphysema with some paraseptal blebs in the lung apices. There is a trace amount of atelectasis and/or scarring along the left major fissure. Included portions of the upper abdominal structures demonstrate gallstones in the gallbladder fundus. Impression: Nonspecific right basilar atelectasis with scant amount along the left major fissure. Follow-up to resolution is recommended to exclude neoplasm. .
[2017-12-01] MEDS: ATORVASTATIN 40 MG TABLET PO SCH (22:08)
[2017-12-01] MEDS: ASPIRIN *EC* 81 MG TABLET PO SCH (22:08)
[2017-12-02] MEDS: ALBUTEROL/IPRATROPIUM 2.5mg-0.5mg/3ml NEB AEROSOL SCH ×4 (03:09→15:12)
[2017-12-02] MEDS: AZITHROMYCIN 250 MG TABLET PO SCH (05:43)
[2017-12-02] MEDS: BUDESONIDE INH.SOLN 0.5mg/2ml NEB AEROSOL SCH (07:20)
--- NOTE | 2017-12-02 07:26 | XRay Report ---
Indication: pna XR chest 2V: Comparison: 11/30/2017 chest radiograph Technique: PA and lateral view Findings: Patient showed slightly more atelectatic changes in the left lung base with continued increased density and atelectasis on the right side. 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 No central vascular congestion is identified. Impression: 1. Stable postop changes of prior coronary artery bypass grafting with no indication of acute decompensation. 2. Continued increased density in the right lung base with slightly increased atelectatic changes now on the left side. .
[2017-12-02 08:12] VITALS: BP 132/67; PULSE 91; TEMP 97.5
--- NOTE | 2017-12-02 09:28 | Pulmonology Progress Note ---
Subjective Principal diagnosis: SOB, cough Interval history: Pt sitting up in chair, states minimal cough and sputum and no SOB or chest pain. Exam Vital signs: Temperature 97.5 F 12/02/17 08:11 Pulse Rate 91 12/02/17 08:11 Respiratory Rate 18 12/02/17 08:11 Blood Pressure 132/67 12/02/17 08:11 Pulse Oximetry 91 12/02/17 08:11 Inpatient Medications: Generic Name Dose Route Start Last Admin Trade Name Freq PRN Reason Stop Dose Admin Albuterol Sulfate 2.5 mg 11/28/17 19:32 Proventil Neb (0.083%) AEROSOL RTQID PRN Albuterol/Ipratropium 3 ml 11/28/17 18:33 Duoneb AEROSOL RTQID PRN Albuterol/Ipratropium 3 ml 11/28/17 19:45 12/02/17 07:20 Duoneb AEROSOL 3 ml Q4H FABRICE Administration Aspirin 81 mg 11/28/17 21:00 12/01/17 22:08 Ecotrin PO 81 mg HS FABRICE Administration Atenolol 50 mg 11/29/17 09:00 12/01/17 08:28 Tenormin PO 50 mg DAILY FABRICE Administration Atorvastatin Calcium 40 mg 11/28/17 21:00 12/01/17 22:08 Lipitor PO 40 mg HS FABRICE Administration Azithromycin 250 mg 12/01/17 06:30 12/02/17 05:43 Zithromax PO 12/04/17 06:31 250 mg ACB FABRICE Administration Budesonide 0.5 mg 11/28/17 19:00 12/02/17 07:20 Pulmicort Inhalation AEROSOL 0.5 mg RTBID FABRICE Administration Guaifenesin 1,200 mg 11/29/17 21:00 12/01/17 22:07 Mucinex La PO 1,200 mg BID FABRICE Administration Ceftriaxone Sodium 1 g/ Sodium 100 mls @ 200 mls/hr 11/28/17 19:00 12/01/17 10:14 Chloride IVP Infused DAILY FABRICE Infusion Insulin Aspart 1 - 5 unit 11/30/17 17:44 12/01/17 10:18 Novolog SQ 2 unit SS PRN Administration Hyperglycemia Protocol Lisinopril 20 mg 11/29/17 09:00 12/01/17 08:29 Prinivil PO 20 mg DAILY FABRICE Administration Magnesium Hydroxide 30 ml 11/30/17 11:22 Mom PO DAILY PRN Constipation Polyethylene Glycol 17 gm 11/30/17 11:30 12/01/17 08:30 Miralax PO Not Given DAILY FABRICE Prednisone 40 mg 12/01/17 13:27 12/01/17 16:09 Deltasone 20 Mg PO 40 mg WB FABRICE Administration Senna/Docusate Sodium 1 tab 11/30/17 11:30 12/01/17 08:30 Senna Plus Tablet PO Not Given DAILY FABRICE Sodium Chloride 500 ml 11/29/17 00:08 11/30/17 09:43 Normal Saline IV 500 ml PRN PRN Administration Sodium Chloride 10 - 80 ml 11/29/17 00:08 12/01/17 08:30 Iv Flush IV 10 ml PRN PRN Administration Flushing Discontinued Medications Generic Name Dose Route Start Last Admin Trade Name Freq PRN Reason Stop Dose Admin Albuterol/Ipratropium 3 ml 11/28/17 16:45 Duoneb AEROSOL 11/28/17 17:26 Q20M FABRICE Albuterol/Ipratropium 3 ml 11/28/17 16:51 11/28/17 16:45 Duoneb AEROSOL 11/28/17 16:52 3 ml O ONE Administration Albuterol/Ipratropium 3 ml 11/28/17 21:00 Duoneb AEROSOL QID FABRICE Azithromycin 500 mg/ Sodium 250 mls @ 167 mls/hr 11/30/17 10:00 11/30/17 14: 20 Chloride IV 12/05/17 23:59 Infused Q24H [facility] Infusion Insulin Aspart 1 - 5 unit 11/30/17 09:58 11/30/17 17:56 Novolog SQ 1 unit SS PRN Administration Hyperglycemia Protocol Methylprednisolone Sodium Succinate 125 mg 11/28/17 16:41 11/28/17 17:04 Solu-Medrol IVP 11/28/17 16:42 125 mg O ONE Administration Methylprednisolone Sodium Succinate 125 mg 11/29/17 01:00 11/30/17 09:41 Solu-Medrol IVP 125 mg Q8HR FABRICE Administration Methylprednisolone Sodium Succinate 60 mg 11/30/17 10:23 12/01/17 08:31 Solu-Medrol IVP 60 mg Q8HR FABRICE Administration Sodium Chloride 10 - 80 ml 11/28/17 16:41 11/28/17 17:04 Iv Flush IVF 10 ml PRN PRN Administration Flushing - Constitutional no acute distress, well nourished, average body habitus, cooperative - Routine HEENT Exam Head: Present: normocephalic, atraumatic Eye: Present: EOMI, PERRL ENT: Present: mucous membranes moist - Routine Neck Exam Present: supple, full ROM, trachea midline - Routine Respiratory Exam Present: decreased breath sounds. Absent: accessory muscle use - Routine Cardiovascular Exam Present: RRR, S1, S2, no murmur - Routine Abdominal Exam Present: soft, normoactive bowel sounds - Routine Extremities Exam Present: no edema, non tender, full ROM - Routine Back/Spine/Pelvis Exam Back/Spine: Present: full ROM - Routine Skin Exam Present: intact, dry - Routine Neurological Exam Present: alert, oriented X3, CN II-XII intact - Routine Psychiatric Exam Present: normal affect, normal thought process, good judgment Results - Laboratory Findings Laboratory: Laboratory Results - last 48 hr 11/30/17 11/30/17 11/30/17 11:50 14:55 20:22 WBC RBC Hgb Hct MCV MCH MCHC RDW Std Deviation Plt Count MPV Immature Gran % (Auto) Neut % (Auto) Lymph % (Auto) [place] % (Auto) Eos % (Auto) Baso % (Auto) Neut # (Auto) Lymph # (Auto) [place] # (Auto) Eos # (Auto) Baso # (Auto) Abs Immat Gran (auto) Neutrophils % (Manual) Band Neutrophils % Lymphocytes % (Manual) Monocytes % (Manual) Neutrophils # (Manual) Band Neutrophils # Lymphocytes # (Manual) Monocytes # (Manual) RBC Morph Comment Sample Site ABG pH ABG pCO2 ABG pO2 ABG HCO3 ABG Total CO2 ABG O2 Saturation ABG Base Excess Modified Bryan Test O2 Delivery Method FiO2 (liters per min) Turbidity Sodium Potassium Chloride Carbon Dioxide Anion Gap BUN Creatinine GFR Calculation BUN/Creatinine Ratio Glucose Glucometer 137 171 139 Calculated Osmolality Calcium Phosphorus Magnesium Icterus Index Albumin Specimen Hemolysis Specimen Comment Tests Not Done Reason Tests Not Done 12/01/17 12/01/17 12/01/17 03:59 03:59 05:59 WBC 16.8 H RBC 4.43 L Hgb 14.1 Hct 44.9 MCV 101.4 H MCH 31.8 MCHC 31.4 RDW Std Deviation 52.4 H Plt Count 213 MPV 10.5 Immature Gran % (Auto) Not performed Neut % (Auto) Not performed Lymph % (Auto) Not performed [place] % (Auto) Not performed Eos % (Auto) Not performed Baso % (Auto) Not performed Neut # (Auto) Not performed Lymph # (Auto) Not performed [place] # (Auto) Not performed Eos # (Auto) Not performed Baso # (Auto) Not performed Abs Immat Gran (auto) Not performed Neutrophils % (Manual) 94.0 H Band Neutrophils % 3.0 Lymphocytes % (Manual) 2.0 L Monocytes % (Manual) 1.0 Neutrophils # (Manual) 15.8 H Band Neutrophils # 0.5 Lymphocytes # (Manual) 0.3 L Monocytes # (Manual) 0.2 RBC Morph Comment Normal Sample Site ABG pH ABG pCO2 ABG pO2 ABG HCO3 ABG Total CO2 ABG O2 Saturation ABG Base Excess Modified Bryan Test O2 Delivery Method FiO2 (liters per min) Turbidity < 20 Sodium 142 Potassium 4.8 Chloride 100 Carbon Dioxide 35 H Anion Gap 7 BUN 27.0 H Creatinine 1.0 GFR Calculation 73 BUN/Creatinine Ratio 27 H Glucose 155 H Glucometer 143 Calculated Osmolality 281 H Calcium 8.9 Phosphorus Magnesium Icterus Index < 2 Albumin Specimen Hemolysis < 15 Specimen Comment Tests Not Done Reason Tests Not Done 12/01/17 12/01/17 12/01/17 07:17 10:12 16:59 WBC RBC Hgb Hct MCV MCH MCHC RDW Std Deviation Plt Count MPV Immature Gran % (Auto) Neut % (Auto) Lymph % (Auto) [place] % (Auto) Eos % (Auto) Baso % (Auto) Neut # (Auto) Lymph # (Auto) [place] # (Auto) Eos # (Auto) Baso # (Auto) Abs Immat Gran (auto) Neutrophils % (Manual) Band Neutrophils % Lymphocytes % (Manual) Monocytes % (Manual) Neutrophils # (Manual) Band Neutrophils # Lymphocytes # (Manual) Monocytes # (Manual) RBC Morph Comment Sample Site L radial ABG pH 7.376 ABG pCO2 57 H ABG pO2 67.1 L ABG HCO3 33.2 H ABG Total CO2 34.9 H ABG O2 Saturation 92.0 L ABG Base Excess 6.1 H Modified Bryan Test Positive O2 Delivery Method Cannula FiO2 (liters per min) 3 Turbidity Sodium Potassium Chloride Carbon Dioxide Anion Gap BUN Creatinine GFR Calculation BUN/Creatinine Ratio Glucose Glucometer 231 116 Calculated Osmolality Calcium Phosphorus Magnesium Icterus Index Albumin Specimen Hemolysis Specimen Comment Tests Not Done Reason Tests Not Done 12/01/17 12/02/17 12/02/17 22:12 04:42 04:42 WBC Cancelled RBC Cancelled Hgb Cancelled Hct Cancelled MCV Cancelled MCH Cancelled MCHC Cancelled RDW Std Deviation Cancelled Plt Count Cancelled MPV Cancelled Immature Gran % (Auto) Cancelled Neut % (Auto) Cancelled Lymph % (Auto) Cancelled [place] % (Auto) Cancelled Eos % (Auto) Cancelled Baso % (Auto) Cancelled Neut # (Auto) Cancelled Lymph # (Auto) Cancelled [place] # (Auto) Cancelled Eos # (Auto) Cancelled Baso # (Auto) Cancelled Abs Immat Gran (auto) Cancelled Neutrophils % (Manual) Band Neutrophils % Lymphocytes % (Manual) Monocytes % (Manual) Neutrophils # (Manual) Band Neutrophils # Lymphocytes # (Manual) Monocytes # (Manual) RBC Morph Comment Sample Site ABG pH ABG pCO2 ABG pO2 ABG HCO3 ABG Total CO2 ABG O2 Saturation ABG Base Excess Modified Bryan Test O2 Delivery Method FiO2 (liters per min) Turbidity Cancelled Sodium Cancelled Potassium Cancelled Chloride Cancelled Carbon Dioxide Cancelled Anion Gap Cancelled BUN Cancelled Creatinine Cancelled GFR Calculation Cancelled BUN/Creatinine Ratio Cancelled Glucose Cancelled Glucometer 147 Calculated Osmolality Cancelled Calcium Cancelled Phosphorus Cancelled Magnesium Cancelled Icterus Index Cancelled Albumin Cancelled Specimen Hemolysis Cancelled Specimen Comment Lab to recollect Tests Not Done Renal,mag Reason Tests Not Done Hemolyzed specimen 12/02/17 12/02/17 12/02/17 05:45 06:13 06:13 WBC 24.4 H D RBC 4.81 Hgb 15.6 Hct 47.6 MCV 99.0 MCH 32.4 MCHC 32.8 RDW Std Deviation 51.7 H Plt Count 234 MPV 10.2 Immature Gran % (Auto) Not performed Neut % (Auto) Not performed Lymph % (Auto) Not performed [place] % (Auto) Not performed Eos % (Auto) Not performed Baso % (Auto) Not performed Neut # (Auto) Not performed Lymph # (Auto) Not performed [place] # (Auto) Not performed Eos # (Auto) Not performed Baso # (Auto) Not performed Abs Immat Gran (auto) Not performed Neutrophils % (Manual) 91.0 H Band Neutrophils % Lymphocytes % (Manual) 4.0 L Monocytes % (Manual) 5.0 Neutrophils # (Manual) 22.2 H Band Neutrophils # Lymphocytes # (Manual) 1.0 Monocytes # (Manual) 1.2 H RBC Morph Comment Normal Sample Site ABG pH ABG pCO2 ABG pO2 ABG HCO3 ABG Total CO2 ABG O2 Saturation ABG Base Excess Modified Bryan Test O2 Delivery Method FiO2 (liters per min) Turbidity < 20 Sodium 145 H Potassium 4.2 Chloride 98 Carbon Dioxide 37 H Anion Gap 10 BUN 30.0 H Creatinine 0.9 GFR Calculation 82 BUN/Creatinine Ratio 33 H Glucose 102 Glucometer 106 Calculated Osmolality 285 H Calcium 8.7 Phosphorus 3.0 Magnesium 2.5 H Icterus Index < 2 Albumin 4.0 Specimen Hemolysis < 15 Specimen Comment Tests Not Done Reason Tests Not Done - Diagnostic Findings Chest x-ray: image reviewed (Cont RLL stable chronic atelectasis) CT scan - chest: image reviewed (stable round atelectasis R base) Assessment and Plan - Assessment and Plan Acute hypoxic respiratory failure Acute COPD exacerbation - New diagnosis, unknown severity Pneumonia Hypertension Plan: 1. Acute hypoxic respiratory failure - Pt. currently on 3L-NC, will wean as tolerated to keep SpO2 >90%. Will need home O2, 3L NC at noc and 5L with ambulation - CT shows stable chronic RLL round atelectasis 2. Acute COPD exacerbation - solu-medrol changed to prednisone - Duoneb BT's Q4 and QID PRN, Pulmicort BID - Would benefit from OP f/u with PFT's after acute issues are resolved 3. Pneumonia - Sputum culture resulted few gram + cocci and rods and moderate neutrophils, normal harvey - Currently on Rocephin 1 gm daily and Azithromycin for exacerbation - IS at bedside with acapella for improved mucous clearance - Respiratory viral panel negative - No pneumonia noted on CT scan 4. Hypertension - Currently on atenolol and lisinopril - Will monitor BP's - Time Spent With Patient Total time spent is greater than 50% in coordination of care (as documented) at patient's floor/unit and/or counseling patient: less than 15 minutes
[2017-12-02] MEDS: NS FLUSH BAG 500ml IV PRN (09:58)
[2017-12-02] MEDS: CEFTRIAXONE 1 G in NS 100 ML IVP SCH (09:58)
[2017-12-02] MEDS: GUAIFENESIN LA 600 MG TABLET PO SCH (09:59)
[2017-12-02] MEDS: PredniSONE 20 MG TABLET PO SCH (10:00)
[2017-12-02] MEDS: LISINOPRIL 20 MG TABLET PO SCH (10:00)
[2017-12-02] MEDS: ATENOLOL 50 MG TABLET PO SCH (10:01)
[2017-12-02] MEDS: SENNA + DOCUSATE TABLET PO SCH (10:01)
[2017-12-02] MEDS: POLYETHYL GLYCOL 3350 17gm PACKET PO SCH (10:01)
[2017-12-02] MEDS: SALINE FLUSH 10ml SYRINGE IV PRN (10:06)
[2017-12-02 11:16] VITALS: RESP 20
--- NOTE | 2017-12-02 13:14 | Discharge Summary ---
Discharge Information Date of admission: 11/28/17 18:14 Anticipated date of discharge: 12/02/17 Attending Physician: Talia Vargas MD Primary care physician: Jannet Duarte APRN Consults: Consulting Provider: Gregor Lyles - Discharge Diagnosis (1) Respiratory failure with hypoxia Status: Acute Acute respiratory failure with hypoxia-requiring 2-5 liters of oxygen. Acute COPD exacerbation. Chronic hypercarbic respiratory failure Leukocytosis - improving. Anemia. Concern for pneumonia vs. atelectasis. Hypernatremia-present on admission - resolved. Hypertension. Coronary artery disease. Dyslipidemia. Chronic tobacco dependence- 55 pk yr. Macular degeneration with visual loss/visual hallucinations. - Procedures Procedures: Date of Exam: 11/29/17 Type of Exam(s): US echo doppler complete This was a technically difficult study. Left atrial dimension is normal. Left ventricle end-diastolic dimension is normal. Left ventricular wall thickness is normal. LV systolic function is normal with ejection fraction of 58%. Right atrium is normal. Right ventricle is normal. Aortic root dimension is normal. Mitral valve is morphologically normal. Aortic valve appears to be normal. Tricuspid valve shows trace of tricuspid regurgitation with normal estimated pulmonary artery systolic pressure of 25. Pulmonary valve shows no pulmonary insufficiency. There is no pericardial effusion. IMPRESSION 1. Normal LV systolic function with ejection fraction of 58%. 2. Trace of tricuspid regurgitation with normal estimated pulmonary artery systolic pressure of 25. 3. Technically difficult study. - Laboratory Labs: 12/02/17 06:13 12/02/17 06:13 - Microbiology Microbiology 11/29/17 14:58 Sputum, Expectorated Gram Stain - Final 11/29/17 14:58 Sputum, Expectorated Sputum Culture - Final Normal Respiratory Harvey - Radiology Radiology: Date of Exam: 12/02/17 Indication: pna XR chest 2V: Findings: Patient showed slightly more atelectatic changes in the left lung base with continued increased density and atelectasis on the right side. 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 No central vascular congestion is identified. Impression: 1. Stable postop changes of prior coronary artery bypass grafting with no indication of acute decompensation. 2. Continued increased density in the right lung base with slightly increased atelectatic changes now on the left side. = = = = = = = = = = = = = = = = = = = = = = = = = = = = = = = = = = = = = = = = = = = = = = = = = = = = = = = = = = = Date of Exam: 11/28/17 Indication: soa PROCEDURE: XR chest 2V: Findings: The examination is somewhat expiratory in nature which is causing some prominence of the interstitial markings. There is some atelectasis in the right lung base without definite pleural effusion. Heart size is normal. There is moderate degenerative disc disease of the thoracic spine. The vertebral body heights appear relatively well-preserved. The patient is status post median sternotomy. The trachea is midline. Impression: Right basilar atelectasis and/or pneumonia. Follow-up to resolution is recommended. = = = = = = = = = = = = = = = = = = = = = = = = = = = = = = = = = = = = = = = = = = = = = = = = = = = = = = = = = = = Date of Exam: 12/01/17 Indication: pleural effusion PROCEDURE: CT chest wo con: Findings: There is nonspecific atelectasis and/or pneumonia in the posterior inferior right lung base along the diaphragm. No definite pleural effusion. Heart size is normal. There are extensive coronary artery calcifications. Patient is status post median sternotomy. There are mild changes of emphysema with some paraseptal blebs in the lung apices. There is a trace amount of atelectasis and/or scarring along the left major fissure. Included portions of the upper abdominal structures demonstrate gallstones in the gallbladder fundus. Impression: Nonspecific right basilar atelectasis with scant amount along the left major fissure. Follow-up to resolution is recommended to exclude neoplasm. History of Present Illness HPI: Patient is a 76-year-old male who presents to the emergency room today for acute evaluation of dyspnea. He reports that he has had increased shortness of breath with cough for approximately 3 weeks. He was diagnosed with "pneumonia" approximately 3 weeks ago at which time he was treated with oral antibiotics, steroids and breathing treatments. Briefly, his symptoms seem to resolve. However, over the last 48 hours. They have worsened. Patient reports increased dyspnea with minimal exertion, and following coughing spells. On arrival to the emergency room today. Room air saturations were 80%. Further workup was obtained. CBC is unremarkable, sodium is slightly elevated at 148, CO2 34. Troponin is negative, d-dimer is normal at 182. EKG revels sinus rhythm. Continue to require 2-3 liters of oxygen by nasal cannula. He is tachypneic 28 times per minute. He does have a known history of tobacco use with a greater than 18-pioa-nent. Reports ongoing cough for the past 3 weeks. He feels ordered of breath with exertion or following coughing spells. He denies having any fever, chills, chest pain or other can complaints. We did discuss advanced directives he does wish to be a full code. Objective Vital signs: Temperature 97.5 F 12/02/17 08:11 Pulse Rate 91 12/02/17 08:11 Respiratory Rate 20 12/02/17 11:10 Blood Pressure 132/67 12/02/17 08:11 Pulse Oximetry 95 12/02/17 11:10 Rhythm: Sinus Tachycardia Height/Weight/BMI: Height 1.8 m Weight 94.5 kg Body Mass Index 27.5 - Constitutional Present: no acute distress, well nourished, well developed - Routine HEENT Exam Head: Present: normocephalic, atraumatic - Routine Respiratory Exam Present: wheezes (diffuse expiratory) - Routine Cardiovascular Exam Present: RRR, no murmur - Routine Abdominal Exam Present: soft, non distended, non tender - Routine Extremities Exam Present: no edema, normal capillary refill - Routine Skin Exam Present: dry, warm - Routine Neurological Exam Present: alert, oriented X3 - Routine Lymphatic Exam Lymphatic: Absent: adenopathy - Routine Psychiatric Exam Present: normal affect, cooperative Hospital Course This is a general summary of the patient's hospital course. For more details refer to the complete medical record. Hospital course: 11/28/17: Admit patient. Inpatient status under care of Dr. Avelar for acute respiratory failure with hypoxia requiring oxygen. Patient was started on IV Rocephin for empiric antimicrobial coverage on the emergency room. We will continue this IV daily. Solu-Medrol 125 milligrams IV every 8 hours for pulmonary inflammation. Duoneb nebulizers 4 times a day and Pulmicort twice a day. PRN also available Encourage Tobacco dependence. Patient denies the need for a nicotine patch at time of admission. Will continue home aspirin, atenolol, Lipitor and lisinopril. Monitor blood pressures Patient sugars to be a full code and this orders written At time of discharge medical care will return to primary care provider, Jannet Yadav APRN 11/29/17: Patient continues to require 2-3L oxygen - denies home oxygen use. Increased dyspnea with ambulation. Continue Rocephin for empiric antimicrobial coverage - day 2. Recheck CXR in AM. Patient remains afebrile. Maybe able to discontinue antibiotics. Continue Solu-Medrol 125 mg IV every 8 hours for pulmonary inflammation. DuoNeb nebulizers 4 times a day and Pulmicort twice a day. PRN also available. Encourage tobacco cessation. RT for smoking cessation counselling. 11/30/17: Patient continues to require 2-3L oxygen - denies home oxygen use. Increased dyspnea with ambulation. Repeat CXR reveals improving right lung base infiltrate/atelectasis with some persistent volume loss of right lung base and small right pleural effusion. Solu-Medrol weaned to 60mg IV Q8H for pulmonary inflammation. Continuation of respiratory cares, DuoNeb treatments QID and PRN, Pulmicort BID. Acapella and incentive spirometry for pulmonary toileting. Sputum culture normal harvey. Continue Rocephin for empiric antimicrobial coverage - day 3. Will add azithromycin atypical pathogens for bronchitis. Patient remains afebrile. Echocardiogram obtained given orthopnea - normal LV systolic function with EF 58 %, trace tricuspid regurg with normal estimated pulmonary artery systolic pressure of 25. 12/01/17: Overall, [place]'s breathing appears to be improved today. Patient continues to require 2-3L oxygen - denies home oxygen use. Able to ambulate further today with decreased dyspnea. Continuation of respiratory cares, DuoNeb treatments QID and PRN, Pulmicort BID. Acapella and incentive spirometry for pulmonary toileting. Patient discussed with Dr. Lyles (pul) who recommended obtaining CT chest for further evaluation of right lower lobe effusion vs. infiltrate. CT results pending. Sputum culture negative x 1 day. Continue to monitor results. Continue Rocephin (day 4) and azithromycin (day 2) for empiric antimicrobial coverage. Patient remains afebrile. Leukocytosis improving (decreased to 16.8). Continue to monitor. 12/02/17: DC home today with O2, Zithromax Rx to complete 5 day course, albuterol, ipratropium, and pulmicort for nebulizer. Prednisone 20mg x 7 days then DC. Ambulatory oximetry -oxygen saturation of 91% on room air; with ambulation saturation dropped and he required 5 L supplemental oxygen to maintain saturation at/above 90%. Overnight oximetry on 2 L last night with significant desaturation-plan 3 L supplemental oxygen at night. F-U OP with Dr. Lyles in 2 wks for PFT's and continued care. F-U with Jannet Duarte in 1 wk. Time spent with patient: discharge greater than 30 minutes Resuscitation Status: Full Code Discharge Plan - Discharge Disposition Discharge Date: 12/02/17 Disposition: 01 Discharged Home, Self-Care *Condition: Stable Reason For Visit (Visit label in EMR): hypoxia,COPD exacerbation - Discharge Medications *Discharge Medications: New Budesonide Inhalation [Pulmicort Inhalation] 0.5 mg INH BID #60 vial Ipratropium [place] 1 dose AEROSOL QID #120 vial PredniSONE [Deltasone 20 mg] 20 mg PO WB #7 tab Azithromycin [Zithromax] 250 mg PO ACB #2 tab Albuterol Neb (0.083%) [Proventil Neb (0.083%)] 2.5 mg AEROSOL QID #120 vial Continue Atorvastatin [Lipitor] 40 mg PO HS #0 Glucosa Mary 2Kcl/Chondroitin Mary [Glucosamine Chondroitin Caplet] 1 tab PO DAILY Aspirin [Aspirin EC] 81 mg PO HS Lisinopril [Prinivil] 20 mg PO DAILY Atenolol [Tenormin] 50 mg PO DAILY Vit A/Vit C/Vit E/Zinc/Copper [Preservision Areds Tablet] 1 tab PO BID Trout-3/Dha/Epa/Fish Oil [Fish Oil 1,000 mg Softgel] 1,000 mg PO HS - Discharge Packet/Instructions *Diet: low salt diet *Activity: as tolerated *Pain Management/Treatment: n/a *Wound Care: n/a *Notify Physician if: You develop fever or have increasing shortness of breath *During Business Hours Contact: [facility] *After Business Hours Contact: [facility] at [phone] *Pending Lab/Results: No Pending Lab - Referrals/Follow Up *Referrals/Follow Up: Gregor Lyles MD [Physician] - 2 Weeks (CALL AND SCHEDULE APPOINTMENT WITH DR. LYLES TO BE SEEN IN 2 WEEKS--[phone]) Jannet Duarte, SMITA [Primary Care Provider] - 1 Week (CALL AND SCHEDULE APPOINTMENT WITH JANNET DUARTE TO BE SEEN IN 1 WEEK --[phone]) - Patient Handouts Patient Handouts: How to Stop Smoking (DC), Using Oxygen at Home (DC), COPD ( Chronic Obstructive Pulmonary Disease) (GEN) - Dismissal Complete Discharge Instructions are:: Complete Physician Narrative - Narrative Attestation Narrative: Date: 12/02/17 Time: 1550 I have independently evaluated and examined this patient. I reviewed the chart, the patient's history, and the KNOCKDOWN WORKER/PA's documented findings as above. We discussed and formulated the assessment and plan as above with additions as below: Mr. Marino was seen this morning and reported minimal dyspnea or cough. He had ambulated when I saw him indicating that the therapist walked to slowly. Overnight oximetry demonstrated saturations on 2 L and 3 L supplemental oxygen recommended for nocturnal use with 2-3 L at rest and 5 L with activity based on yesterday's ambulatory oximetry. Patient is alert, respirations are nonlabored with decreased airflow throughout but breath sounds are clear; no wheezing present. Patient will continue azithromycin for bronchitis; some atelectasis on imaging studies but no evidence of pneumonia. Continue nebulized breathing treatments for COPD-outpatient pulmonary function test to be obtained in the future. Emphysematous changes and blebs seen in the apices on CT. Stable for discharge.
[2017-12-02 15:24] VITALS: O2SAT 91
== END 2017-12-02 16:32 | disposition home or self-care (01) | DRG 189 ==
LOC: ED 16:20 → SUATTDRO 18:14 → MED 18:14
PROVIDERS: ADMIT Internal Medicine; ATTEND Internal Medicine

== ENCOUNTER 2018-03-22 12:07 | Inpatient (IN) ==
--- NOTE | 2018-03-22 12:25 | Emergency Department Report ---
Medical Clearance HPI - General Chief complaint: Medical Clearance Stated complaint: [facility] Clear[facility] Source: patient, family Mode of arrival: ambulatory Limitations: no limitations - History of Present Illness HPI Narrative: Pt presents from home for clearance for admission to [facility]. About a week ago pt was having visual hallucinations and was to be admitted however hallucinations resolved and pt was not admitted. Yesterday hallucinations started again. Family contacted Vic who has agreed to admit pt after medical clearance. Family notes pt has been more agitated but has not been aggressive. Pt states he has been depressed but not suicidal. Pt has a history of COPD and uses home O2. He denies any physical complaints MD complaint: medical clearance requested Home medications: Home Medications Medication Instructions Recorded Confirmed Atorvastatin [Lipitor] 40 mg PO HS #0 02/21/12 03/22/18 Aspirin [Aspirin EC] 81 mg PO HS 11/28/17 03/22/18 Atenolol [Tenormin] 50 mg PO DAILY 11/28/17 03/22/18 Lisinopril [Prinivil] 20 mg PO DAILY 11/28/17 03/22/18 Vit A/Vit C/Vit E/Zinc/Copper 1 tab PO BID 11/28/17 03/22/18 [Preservision Areds Tablet] Albuterol/Ipratropium [Duoneb] 1 unit AEROSOL TID 03/22/18 03/22/18 Melatonin/Pyridoxine HCl (B6) 1 each PO DAILY 03/22/18 03/22/18 [Melatonin 5 mg Tablet] Umeclidinium Brm/Vilanterol Tr 1 dose IH DAILY 03/22/18 03/22/18 [Anoro Ellipta 62.5-25 Mcg INH] Vitamin E (Dl,Tocopheryl Acet) 1,000 unit PO DAILY 03/22/18 03/22/18 [Vitamin E] Allergies/Adverse reactions: Allergies Allergy/AdvReac Type Severity Reaction Status Date / Time No Known Allergies Allergy Verified 03/22/18 12:57 Review of Systems All systems: reviewed and negative except as stated Constitutional: Reports: as per HPI Respiratory: Reports: as per HPI Psychiatric: Reports: as per HPI PFSH Patient Stated Medical History Dementia Yes Cataracts Yes Hearing Loss Yes Other HEENT Yes: Glaucoma Hypertension Yes Chronic Obstructive Pulmonary Yes Disease (COPD) Gastroesophageal Reflux Yes Disease Ulcer Yes Hx Renal Disease No Osteoarthritis Yes Medical History Updates: Hypertension. Hyperlipidemia. Coronary artery disease with history of CABG. Suspect COPD. Chronic tobacco dependence Surgical History: CABG x3-2005. Cardiac [id number]. Amirani - Social History Smoking status: Current some day smoker Packs-years: 57 Substance use type: does not use Alcohol intake frequency: does not drink Housing: house Household members: spouse Current residence: Apartment/Private Home Physical Exam - Limitations Limitations: no limitations - General General appearance: alert, in no apparent distress - Normal Exams: Head:: Normocephalic without trauma Eyes:: Pupils are PERRLA w/ EOMI Chest/Respirations:: Clear all arvizu, with good airflow, and symmetry bilaterally Cardiovascular:: Regular rate and rhythm, without murmur or gallop, Pulses 2+ all extremities, capillary refill, <2 seconds all extremities Abdomen:: Bowel sounds positive, soft, non-tender, non-distended Musculoskeletal:: No tenderness, or deformity noted, good range of motion, all extremities Integumentary:: No rashes Neurological:: Patient is alert, and oriented, cranial nerves, motor/sensory/ cerebellar, exams w/o gross deficits, to observation Psychiatric:: Patient exhibits, appropriate attention, emotion and affect Course Vital Signs Temperature 97.8 F 03/22/18 12:08 Pulse Rate 58 L 03/22/18 12:08 Respiratory Rate 20 03/22/18 12:08 Blood Pressure 152/69 H 03/22/18 12:08 Pulse Oximetry 93 03/22/18 12:08 Temperature 97.8 F 03/22/18 12:08 Pulse Rate 58 L 03/22/18 12:08 Respiratory Rate 20 03/22/18 12:08 Blood Pressure 152/69 H 03/22/18 12:08 Pulse Oximetry 93 03/22/18 12:08 Medical Clearance - [facility] Narrative Medical decision making narrative: Labs, X ray, and EKG reviewed with no acute findings. Pt transferred to [facility]. - Differential Diagnosis Differential Diagnosis Narrative: anxiety, depression, mood disorder, psychotic episode - Lab Data Result diagrams: 03/22/18 12:38 03/22/18 12:38 Lab Results 03/22/18 03/22/18 03/22/18 Range/Units 12:26 12:38 12:38 WBC 9.7 (4.5-11.0) T/MM3 RBC 4.56 (4.50-5.90) M/MM3 Hgb 14.3 (13.5-17.5) GM/DL Hct 44.6 (41-53) % MCV 97.8 (80-100) UM3 MCH 31.4 (26-34) UUG MCHC 32.1 (31-37) GM/DL RDW Std Deviation 47.0 (36.9-50.2) FL Plt Count 192 (130-400) T/MM3 MPV 10.0 (9.4-12.4) UM3 Immature Gran % (Auto) 0.4 (0.0-0.5) % Neut % (Auto) 71.7 H (33-66) % Lymph % (Auto) 14.9 L (23-45) % [place] % (Auto) 9.9 H (0-9.0) % Eos % (Auto) 2.8 (0-4) % Baso % (Auto) 0.3 (0-2) % Neut # (Auto) 6.9 (1.8-7.7) T/MM3 Lymph # (Auto) 1.4 (1-4.8) T/MM3 [place] # (Auto) 1.0 H (0-0.8) T/MM3 Eos # (Auto) 0.3 (0-0.5) T/MM3 Baso # (Auto) 0.0 (0-0.2) T/MM3 Abs Immat Gran (auto) 0.04 H (0.00-0.03) T/MM3 Turbidity < 20 (0-20) Sodium 145 (136-146) MEQ/L Potassium 4.9 (3.6-5) MEQ/L Chloride 103 (98-107) MEQ/L Carbon Dioxide 32 H (22-30) MEQ/L Anion Gap 10 (5-15) meq/L BUN 10.0 (9-20) MG/DL Creatinine 0.8 (0.8-1.5) mg/dL Estimated Creat Clear 74 (>50) mL/min GFR Calculation 94 (>60) mL/min BUN/Creatinine Ratio 13 (6-26) RATIO Glucose 100 (75-110) MG/DL Calculated Osmolality 278 (261-280) MOSM/KG Calcium 9.0 (8.4-10.2) MG/DL Total Bilirubin 1.10 (0.20-1.30) MG/DL Icterus Index < 2 (0-7) AST 31 (17-59) U/L ALT 16 (1-50) U/L Alkaline Phosphatase 99 (38-126) U/L Total Protein 7.3 (6.3-8.2) g/dL Albumin 4.5 (3.5-5.0) g/dL Globulin 2.8 (2.4-3.6) G/DL Albumin/Globulin Ratio 1.6 (1.1-2.2) RATIO Specimen Hemolysis < 15 (0-25) Ur Collection Type Urine, void-cc/notcc Urine Color Yellow (YELLOW) Urine Clarity Clear Urine pH 7.5 (5.0-8.0) Ur Specific Mccarr 1.010 L (1.015-1.025) Urine Protein Negative (NEGATIVE) Urine Glucose (UA) Negative (NEGATIVE) Urine Ketones Negative (NEGATIVE) Urine Occult Blood Negative (NEGATIVE) Urine Nitrate Negative (NEGATIVE) Urine Bilirubin Negative (NEGATIVE) Urine Urobilinogen 0.2 (NORMAL) EU/DL Ur Leukocyte Esterase Negative (NEGATIVE) Urinalysis Comment Microscopic not ind. Disposition Clinical Impression: Hallucination, visual Depression Qualifiers: Depression Type: major depressive disorder Major depression recurrence: recurrent Active/Remission status: currently active Major depression episode severity: moderate Qualified Code(s): F33.1 - Major depressive disorder, recurrent, moderate Disposition: 67 [place] [facility] Condition: Stable Prescriptions: No Action Atorvastatin [Lipitor] 40 mg PO HS #0 Aspirin [Aspirin EC] 81 mg PO HS Lisinopril [Prinivil] 20 mg PO DAILY Atenolol [Tenormin] 50 mg PO DAILY Vit A/Vit C/Vit E/Zinc/Copper [Preservision Areds Tablet] 1 tab PO BID Albuterol/Ipratropium [Duoneb] 1 unit AEROSOL TID Vitamin E (Dl,Tocopheryl Acet) [Vitamin E] 1,000 unit PO DAILY Melatonin/Pyridoxine HCl (B6) [Melatonin 5 mg Tablet] 1 each PO DAILY Umeclidinium Brm/Vilanterol Tr [Anoro Ellipta 62.5-25 Mcg INH] 1 dose IH DAILY Referrals: Jannet Parks, [employer] [Primary Care Provider] - Time of Disposition: 13:29 - Seen By: midlevel
--- NOTE | 2018-03-22 13:21 | XRay Report ---
INDICATION: COPD history PROCEDURE: CHEST 2-VIEWS UPRIGHT (PA & LAT) Encounter: Initial COMPARISON: December 02, 2017 FINDINGS: Stable areas of scarring in both lower lobes. No acute consolidative pneumonia. Chronic right lower lobe atelectasis. No pneumothorax or pleural effusion. Heart size and mediastinal contours are stable. Prior CABG. Pulmonary vascularity is normal. Bony structures are unchanged. Impression: Stable chest without acute cardiopulmonary disease. .
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
[2018-03-22 14:24] VITALS: BMI 26.5
[2018-03-22] MEDS ORDERED: HALOPERIDOL 0.5 MG TABLET PO PRN (14:29)
[2018-03-22] MEDS ORDERED: LORazepam 0.5 MG TABLET PO PRN (14:29)
[2018-03-22] MEDS ORDERED: HALOPERIDOL 5 MG/ML INJECTION IM PRN (14:29)
--- NOTE | 2018-03-22 15:59 | History & Physical Report ---
History of Present Illness Date: 03/22/18 Chief complaint: psychosis, hallucinations HPI: Mr Marino is a pleasant 77-year-old male who is known to the hospitalist services from previous medical admissions. He resides independently at home in [place], [place] with his . He is under the primary care of Jannet Parks APRN at [facility]. He has chronic "eye problems" in which he receives eye injections. He notes that his vision has progressively worsened over the past months to years, as this is to be expected. Suspect he has macular degeneration? however this is not been confirmed. On reviewing old records it is noted that he has had increased anxiety with insomnia for the past 3-4 months. Recently over the past few weeks things have gotten worse, last night he had severe anxiety during the night with visual hallucinations of a girl lying in his room. He recovered his head and was afraid that someone would hurt him. reports him being confused intermittently. Patient was directed medical evaluation while in the emergency room followed by admission to [facility] under the care of Dr. Cruz. He was found to be mostly unremarkable. Chemistry panel normal. TSH normal. X-ray without acute cardia pulmonary disease. Reports that he chronically utilizes oxygen on room air and is followed by Dr. Lyles in the outpatient setting. Patient is seen today for initial examination. While in the [facility]. He is alert, oriented and pleasant, and resting in bed, listening to music. He is on 2 liters of oxygen by nasal cannula. He reports has been having difficulty sleeping off and on. He reports having a significant "eye problem" in which his vision has continued to decline over time, which is to be expected. He reports that he is seeing things that "aren't there," however, he feels that it is secondary to his eye condition. He describes a blanket laying on the floor in which a man popped up out of it. He also describes a man riding a horse walking across the lawn. He reports often times he'll see girls walking around. Review of Systems All systems PM: 10-point ROS was reviewed, no additional remarkable complaints except - EENMT Eyes: Present: as per HPI, change in vision, loss of vision Past Medical History Medical History Updates: Hypertension. Hyperlipidemia. Coronary artery disease with history of CABG. Suspect COPD- chronic o2 use- 2L. Chronic tobacco dependence. Chronic eye disease/vision loss- ?suspect Macular degeneration Surgical History: CABG x3-2005. Cardiac [id number]. Amirani Family History: Father-heart disease Mother-lung disease. Sibling-breast cancer Family History: As Above - Social History Smoking status: Current some day smoker Substance use type: does not use Housing: house (with ) Current occupational status: retired Current residence: Apartment/Private Home Social history: PCP Jannet Yadav APRN Pulmonary- Dr Lyles Medications Home Medications Medication Instructions Recorded Confirmed Type Atorvastatin [Lipitor] 40 mg PO HS #0 02/21/12 03/22/18 History Aspirin [Aspirin EC] 81 mg PO HS 11/28/17 03/22/18 History Atenolol [Tenormin] 50 mg PO DAILY 11/28/17 03/22/18 History Lisinopril [Prinivil] 20 mg PO DAILY 11/28/17 03/22/18 History Vit A/Vit C/Vit E/Zinc/Copper 1 tab PO BID 11/28/17 03/22/18 History [Preservision Areds Tablet] Albuterol/Ipratropium [Duoneb] 1 unit AEROSOL TID 03/22/18 03/22/18 History Melatonin/Pyridoxine HCl (B6) 1 each PO DAILY 03/22/18 03/22/18 History [Melatonin 5 mg Tablet] Umeclidinium Brm/Vilanterol Tr 1 dose IH DAILY 03/22/18 03/22/18 History [Anoro Ellipta 62.5-25 Mcg INH] Vitamin E (Dl,Tocopheryl Acet) 1,000 unit PO DAILY 03/22/18 03/22/18 History [Vitamin E] Allergies Allergy/AdvReac Type Severity Reaction Status Date / Time No Known Allergies Allergy Verified 03/22/18 12:57 Exam Height/Weight/BMI: Height 1.83 m Weight 88.7 kg Body Mass Index 26.5 - Constitutional Present: no acute distress, well nourished, well developed - Routine HEENT Exam Eye: Present: EOMI ENT: Present: mucous membranes moist, dentition normal - Routine Respiratory Exam Present: diminished air movement. Absent: wheezes - Routine Cardiovascular Exam Present: RRR, S1, S2. Absent: murmur - Routine Abdominal Exam Present: soft, normoactive bowel sounds, non distended. Absent: tenderness - Routine Extremities Exam Present: no edema, normal capillary refill - Routine Back/Spine/Pelvis Exam Back/Spine: Present: full ROM - Routine Skin Exam Present: intact, dry, warm - Routine Neurological Exam Present: alert, oriented X3, CN II-XII intact, moving all extremities - Routine Psychiatric Exam Present: cooperative Results - Labs CBC & Chem 7: 03/22/18 12:38 03/22/18 12:38 Assessment and Plan Assessment and Plan: Impression Psychosis Visual hallucinations Chronic vision problems-suspect macular degeneration COPD-chronic oxygen at 2 liters Coronary artery disease. Hypertension Hyperlipidemia chronic tobacco dependence Plan Agree with admission to [facility] under the care of Dr. Cruz. Did review old records and speak with primary care, however, she is unclear if patient has diagnosed macular degeneration and she was not currently at her office. Chronic oxygen at 2 liters Continue on home DuoNeb and Anoro Ellipta inhaler Monitor blood pressures Continue on aspirin, atenolol, lisinopril and a atorvastatin Encourage patient to participate in unit activities and provide a safe environment Hospitalist services will continue to medical management existing comorbidities during his stay on the [facility]. At time of discharge medical care will return to PCP, Jannet Parks-SMITA Resuscitation Status: Full Code - Physician Narrative Physician: Talia Vargas MD Narrative: Date: 03/22/18 Time: 1720 I have independently evaluated and examined this patient. I reviewed the chart, the patient's history, and the [employer] LEAD/PA's documented findings as above. We discussed and formulated the assessment and plan as above with additions as below: Mr. Marino is known from prior hospitalization for COPD exacerbation. He reports feeling well other than difficulty with his vision today and indicates breathing is fine. He denies chest pain and hopes to be able to go home tomorrow. Respirations are nonlabored, diminished breath sounds throughout but no wheezing or focal findings. Oxygen saturation 94% on 2 L. Regular cardiac rhythm, diminished heart tones EOMI, facial structure symmetric, tongue midline Sensation intact to light touch across the face and 4 extremities Normal motor tone, no tremor, good strength proximally 4 extremity, elementary school librarian 4+/5 bilaterally Laboratory data reviewed-carbon dioxide 32 consistent with chronic respiratory disease and improved from prior discharge. B-12, folic acid, and TSH all unremarkable as is urinalysis. Chest x-ray reviewed by myself-chronic elevation of right hemidiaphragm and bibasilar scarring. EKG also reviewed by myself-sinus bradycardia without acute ST/T-wave changes. Blood pressure elevated throughout the day-home medications being resumed. Thank you for allowing us to participate in Mr. Marino's care. Hospital Course Summary Disclaimer: The visit summary below is not to be considered part of the above Progress Note. Hospital Course: Impression Psychosis Visual hallucinations Chronic vision problems-suspect macular degeneration COPD-chronic oxygen at 2 liters Coronary artery disease. Hypertension Hyperlipidemia chronic tobacco dependence Plan Agree with admission to [facility] under the care of Dr. Cruz. Did review old records and speak with primary care, however, she is unclear if patient has diagnosed macular degeneration and she was not currently at her office. Chronic oxygen at 2 liters Continue on home DuoNeb and Anoro Ellipta inhaler Monitor blood pressures Continue on aspirin, atenolol, lisinopril and a atorvastatin Encourage patient to participate in unit activities and provide a safe environment Hospitalist services will continue to medical management existing comorbidities during his stay on the [facility]. At time of discharge medical care will return to PCP, Jannet Gutierrez
[2018-03-22] MEDS: ASPIRIN *EC* 81 MG TABLET PO SCH (19:44)
[2018-03-22] MEDS: ATORVASTATIN 40 MG TABLET PO SCH (19:44)
[2018-03-22] MEDS: ALBUTEROL/IPRATROPIUM 2.5mg-0.5mg/3ml NEB AEROSOL SCH (20:45)
[2018-03-22] MEDS ORDERED: ASPIRIN *EC* 81 MG TABLET PO SCH (21:00)
[2018-03-22] MEDS ORDERED: ATORVASTATIN 40 MG TABLET PO SCH (21:00)
[2018-03-23] MEDS: ATORVASTATIN 40 MG TABLET PO SCH ×2 (02:46→20:17)
[2018-03-23] MEDS: ASPIRIN *EC* 81 MG TABLET PO SCH ×2 (02:46→20:17)
[2018-03-23] MEDS: LISINOPRIL 20 MG TABLET PO SCH (08:05)
[2018-03-23] MEDS: ATENOLOL 50 MG TABLET PO SCH (08:05)
[2018-03-23] MEDS: ALBUTEROL/IPRATROPIUM 2.5mg-0.5mg/3ml NEB AEROSOL SCH ×3 (08:53→21:13)
[2018-03-23] MEDS ORDERED: LISINOPRIL 20 MG TABLET PO SCH (09:00)
[2018-03-23] MEDS ORDERED: NON-FORMULARY MEDICATION 1 EACH EACH (Umeclidinium Brm/Vilanterol Tr [Anoro Ellipta 62.5-2 IH SCH (09:00)
[2018-03-23] MEDS ORDERED: ATENOLOL 50 MG TABLET PO SCH (09:00)
--- NOTE | 2018-03-23 15:23 | Neuropsych Progress Note ---
[facility] Subjective Date: 03/23/18 - Sujective/Severity of Illness Medications: Albuterol/Ipratropium (Duoneb) 3 ml AEROSOL TID [facility] Last Admin: 03/23/18 08:53 Dose: 3 ml Aspirin (Ecotrin) 81 mg PO [facility] Last Admin: 03/23/18 02:46 Dose: Not Given Atenolol (Tenormin) 50 mg PO DAILY [facility] Last Admin: 03/23/18 08:05 Dose: 50 mg Atorvastatin Calcium (Lipitor) 40 mg PO HS [facility] Last Admin: 03/23/18 02:46 Dose: Not Given Haloperidol (Haldol) 0.5 mg PO Q6H PRN PRN Reason: Extreme agitation Haloperidol Lactate (Haldol) 0.5 mg IM Q6H PRN PRN Reason: Extreme agitation Lisinopril (Prinivil) 20 mg PO DAILY [facility] Last Admin: 03/23/18 08:05 Dose: 20 mg Lorazepam (Ativan) 0.5 mg PO Q6H PRN PRN Reason: Extreme agitation Lorazepam (Ativan Inj) 0.5 mg IM Q6H PRN PRN Reason: Extreme agitation Subjective: Patient seen and chart reviewed. Case discussed with treatment team. On interview, patient is pleasant and cooperative. He reports his mood is good and continues to minimize psychiatric symptoms, including hallucinations. 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 He feels his energy level is good despite this. Patient denies any SI, HI or AH. Patient denies any adverse side effects related to psychotropic medications. Nursing staff report patient had increased confusion overnight and became agitated with attempts to reorient. No sign of VH noted by nursing staff (or during interview). Patient has been adherent with medications. Patient slept only 2 hours intermittently overnight. VSS. Patient is eating well. Psychotropic PRNs required in the past 24 hours: none. Start Time: 07:40 Stop Time: 08:00 Mental Status Exam Vitals: Last Vital Signs Temp 97.9 F 03/23/18 08:09 Pulse 59 L 03/23/18 08:09 Resp 18 03/23/18 08:55 BP 157/80 H 03/23/18 08:09 Pulse Ox 92 03/23/18 08:55 Height: 1.83 m Weight: 88.7 kg - Mental Status Exam Muscle Strength/Tone: Normal Dressing: Casual Grooming: Fair Attitude: Cooperative Motor Activity: Retardation Eye Contact: Good Speech: Normal Volume: Loud Rhythm: Appropriate Rhythm Orientation: Oriented X4 Mood: Neutral Affect: Relaxed Rate of Thoughts: Delayed Thought Organization: Organized Associations: Intact Abstract Reasoning: Poor abstract reasoning Thought Content: Other (Minimizes psych sx) Perception/Psychotic: Psychotic Current Hallucinations: Visual Language: Naming Intact Fund of Knowledge: David aware current events Memory: Poor-recent Suicidal Ideation: Denies Homicidal Ideation: Denies Insight: Limited Judgement: Limited Impulse Control: Fair - Laboratory Result Diagrams: 03/22/18 12:38 03/22/18 12:38 Laboratory Results - last 24 hr 03/22/18 12:33 Vitamin B12 537 Folate 17.1 Assessment and Plan (1) Psychosis Qualifiers: Schizoaffective disorder type: unspecified Current visit: Yes Status: Acute r/o LBD (2) Nicotine use disorder Current visit: Yes Status: Acute Continuing to monitor patient for symptoms; consider use of Zyprexa though may cause increased agitation/restlessness if patient truly has LBD. Will order head CT without contrast. Hospital Course Summary Disclaimer: The visit summary below is not to be considered part of the above Progress Note. Hospital Course: Impression Psychosis Visual hallucinations Chronic vision problems-suspect macular degeneration COPD-chronic oxygen at 2 liters Coronary artery disease. Hypertension Hyperlipidemia chronic tobacco dependence Plan Agree with admission to [facility] unit under the care of Dr. Cruz. Did review old records and speak with primary care, however, she is unclear if patient has diagnosed macular degeneration and she was not currently at her office. Chronic oxygen at 2 liters Continue on home DuoNeb and Anoro Ellipta inhaler Monitor blood pressures Continue on aspirin, atenolol, lisinopril and a atorvastatin Encourage patient to participate in unit activities and provide a safe environment Hospitalist services will continue to medical management existing comorbidities during his stay on the [facility] unit. At time of discharge medical care will return to PCP, Jannet Parks-SMITA 03/23/18 Psych: Continuing to monitor patient for symptoms; consider use of Zyprexa though may cause increased agitation/restlessness if patient truly has LBD. Will order head CT without contrast.
[2018-03-24] MEDS: ALBUTEROL/IPRATROPIUM 2.5mg-0.5mg/3ml NEB AEROSOL SCH (06:55)
[2018-03-24] MEDS: ATENOLOL 50 MG TABLET PO SCH (08:26)
[2018-03-24] MEDS: LISINOPRIL 20 MG TABLET PO SCH (08:26)
--- NOTE | 2018-03-24 09:57 | Neuropsych Progress Note ---
[facility] Subjective Date: 03/24/18 - Sujective/Severity of Illness Medications: Aspirin (Ecotrin) 81 mg PO HS [facility] Last Admin: 03/23/18 20:17 Dose: 81 mg Atenolol (Tenormin) 50 mg PO DAILY [facility] Last Admin: 03/24/18 08:26 Dose: 50 mg Atorvastatin Calcium (Lipitor) 40 mg PO HS [facility] Last Admin: 03/23/18 20:17 Dose: 40 mg Haloperidol (Haldol) 0.5 mg PO Q6H PRN PRN Reason: Extreme agitation Haloperidol Lactate (Haldol) 0.5 mg IM Q6H PRN PRN Reason: Extreme agitation Lisinopril (Prinivil) 20 mg PO DAILY [facility] Last Admin: 03/24/18 08:26 Dose: 20 mg Lorazepam (Ativan) 0.5 mg PO Q6H PRN PRN Reason: Extreme agitation Last Admin: 03/23/18 20:17 Dose: 0.5 mg Lorazepam (Ativan Inj) 0.5 mg IM Q6H PRN PRN Reason: Extreme agitation Subjective: Patient seen and chart reviewed. Case discussed with treatment team. Patient is sleeping at time of rounds. Nursing staff report patient is mostly pleasant/cooperative during the day, but becomes easily agitated at night and became aggressive, requiring multiple PRNs overnight. He made comments to staff about shooting them and thought they were intruders into his home. He continues to not sleep well, with broken sleep. Patient has been adherent with medications. VSS. Patient is eating well. Psychotropic PRNs required in the past 24 hours: Ativan 0.5mg PO at 1940, Haldol 0.5mg IM at 2330 (helped to calm patient). Start Time: 07:40 Stop Time: 08:00 Mental Status Exam Vitals: Last Vital Signs Temp 98.2 F 03/24/18 08:40 Pulse 69 03/24/18 08:40 Resp 16 03/24/18 08:40 BP 126/72 03/24/18 08:40 Pulse Ox 91 03/24/18 08:40 Height: 1.83 m Weight: 88.7 kg - Mental Status Exam Muscle Strength/Tone: Normal Dressing: Casual Grooming: Fair Attitude: Cooperative Motor Activity: Retardation Eye Contact: Good Speech: Normal Volume: Loud Rhythm: Appropriate Rhythm Orientation: Oriented X4 Mood: Neutral (labile affect overnights) Rate of Thoughts: Delayed Thought Organization: Organized Associations: Intact Abstract Reasoning: Poor abstract reasoning Thought Content: Other (Minimizes psych sx) Perception/Psychotic: Psychotic Current Hallucinations: Visual Language: Naming Intact Fund of Knowledge: David aware current events Memory: Poor-recent Suicidal Ideation: Denies Homicidal Ideation: Denies Insight: Limited Judgement: Limited Impulse Control: Poor - Laboratory Result Diagrams: 03/22/18 12:38 03/22/18 12:38 Assessment and Plan (1) Psychosis Qualifiers: Schizoaffective disorder type: unspecified Current visit: Yes Status: Acute (2) Nicotine use disorder Current visit: Yes Status: Acute (3) Major neurocognitive disorder Problem details: r/o LBD Current visit: Yes Status: Acute Spoke with /DPOA and daughters for ~30 minutes. Discussed risks/benefits and agreed to start Zyprexa 2.5mg PO q HS. Hospital Course Summary Disclaimer: The visit summary below is not to be considered part of the above Progress Note. Hospital Course: Impression Psychosis Visual hallucinations Chronic vision problems-suspect macular degeneration COPD-chronic oxygen at 2 liters Coronary artery disease. Hypertension Hyperlipidemia chronic tobacco dependence Plan Agree with admission to [facility] unit under the care of Dr. Cruz. Did review old records and speak with primary care, however, she is unclear if patient has diagnosed macular degeneration and she was not currently at her office. Chronic oxygen at 2 liters Continue on home DuoNeb and Anoro Ellipta inhaler Monitor blood pressures Continue on aspirin, atenolol, lisinopril and a atorvastatin Encourage patient to participate in unit activities and provide a safe environment Hospitalist services will continue to medical management existing comorbidities during his stay on the [facility] unit. At time of discharge medical care will return to PCPJannet 03/23/18 Psych: Continuing to monitor patient for symptoms; consider use of Zyprexa though may cause increased agitation/restlessness if patient truly has LBD. Will order head CT without contrast. 03/24/18 Psych: Spoke with /DPOA and daughters for ~30 minutes. Discussed risks/benefits and agreed to start Zyprexa 2.5mg PO q HS.
--- NOTE | 2018-03-24 10:37 | CT Scan Report ---
Indication: Psychosis PROCEDURE: CT head/brain wo con: Encounter: Initial Comparison: None Technique: Axial CT images through the head were performed without contrast. Iterative Reconstruction dose reducing technique was utilized. FINDINGS: The ventricles are of normal size, shape, and contour for the patient's age. There are scattered areas of low attenuation in the white matter which most likely represent changes from chronic microvascular ischemia. The brainstem, cerebellum, and cerebral hemispheres otherwise have a normal morphology and CT attenuation. There is no evidence of midline displacement. No hemorrhage, signs of acute territorial stroke, mass effect, mass lesions, or edema is evident. The visualized portions of the skull base, midface, and calvarium demonstrate no abnormality. Small mucus retention cysts in the left maxillary sinus. The tympanic and mastoid cavities appear normal. IMPRESSION: No acute intracranial abnormality or hemorrhage. .
[2018-03-24] MEDS: OLANZapine 2.5 MG TABLET PO SCH (20:19)
[2018-03-24] MEDS: ASPIRIN *EC* 81 MG TABLET PO SCH (20:19)
[2018-03-24] MEDS: ATORVASTATIN 40 MG TABLET PO SCH (20:19)
[2018-03-25] MEDS: LISINOPRIL 20 MG TABLET PO SCH (08:17)
[2018-03-25] MEDS: ATENOLOL 50 MG TABLET PO SCH (08:17)
[2018-03-25] MEDS: ALBUTEROL/IPRATROPIUM 2.5mg-0.5mg/3ml NEB AEROSOL PRN (12:05)
--- NOTE | 2018-03-25 12:23 | Neuropsych Progress Note ---
[facility] Subjective Date: 03/25/18 - Sujective/Severity of Illness Medications: Albuterol/Ipratropium (Duoneb) 3 ml AEROSOL PRN PRN Last Admin: 03/25/18 12:05 Dose: 3 ml Aspirin (Ecotrin) 81 mg PO [facility] Last Admin: 03/24/18 20:19 Dose: 81 mg Atenolol (Tenormin) 50 mg PO DAILY [facility] Last Admin: 03/25/18 08:17 Dose: 50 mg Atorvastatin Calcium (Lipitor) 40 mg PO [facility] Last Admin: 03/24/18 20:19 Dose: 40 mg Haloperidol (Haldol) 0.5 mg PO Q6H PRN PRN Reason: Extreme agitation Haloperidol Lactate (Haldol) 0.5 mg IM Q6H PRN PRN Reason: Extreme agitation Lisinopril (Prinivil) 20 mg PO DAILY [facility] Last Admin: 03/25/18 08:17 Dose: 20 mg Lorazepam (Ativan) 0.5 mg PO Q6H PRN PRN Reason: Extreme agitation Last Admin: 03/23/18 20:17 Dose: 0.5 mg Lorazepam (Ativan Inj) 0.5 mg IM Q6H PRN PRN Reason: Extreme agitation Olanzapine (Zyprexa) 2.5 mg PO [facility] Last Admin: 03/24/18 20:19 Dose: 2.5 mg Subjective: Patient seen and chart reviewed. Case discussed with nursing. Nursing reports pt had a better night last night. Less confused and combative. Slept better. On face to face the pt is pleasant but confused. He states he is not sure why he is here and is requesting to go home. He has poor insight into his memory impairment. Tolerating meds. Start Time: 11:00 Stop Time: 11:15 Mental Status Exam Vitals: Last Vital Signs Temp 97.2 F 03/25/18 07:32 Pulse 61 03/25/18 07:32 Resp 14 03/25/18 12:04 BP 132/69 03/25/18 07:32 Pulse Ox 96 03/25/18 12:04 Height: 1.83 m Weight: 88.7 kg - Mental Status Exam Muscle Strength/Tone: Normal Dressing: Casual Grooming: Fair Attitude: Cooperative Motor Activity: Retardation Eye Contact: Good Speech: Normal Volume: Loud Rhythm: Appropriate Rhythm Orientation: Oriented X4 Mood: Neutral Rate of Thoughts: Delayed Thought Organization: Organized Associations: Intact Abstract Reasoning: Poor abstract reasoning Thought Content: Other (Minimizes psych sx) Perception/Psychotic: Psychotic Current Hallucinations: Visual Language: Naming Intact Fund of Knowledge: David aware current events Memory: Poor-recent Suicidal Ideation: Denies Homicidal Ideation: Denies Insight: Limited Judgement: Limited Impulse Control: Fair - Laboratory Result Diagrams: 03/22/18 12:38 03/22/18 12:38 Laboratory Results - last 24 hr 03/25/18 07:23 Triglycerides 130 Cholesterol 101 L LDL Cholesterol, Calc 44.0 L VLDL Cholesterol 26.0 HDL Cholesterol 31 L Cholesterol/HDL Ratio 3.3 Assessment and Plan (1) Psychosis Qualifiers: Schizoaffective disorder type: unspecified Current visit: Yes Status: Acute (2) Nicotine use disorder Current visit: Yes Status: Acute Hospital Course Summary Disclaimer: The visit summary below is not to be considered part of the above Progress Note. Hospital Course: Impression Psychosis Visual hallucinations Chronic vision problems-suspect macular degeneration COPD-chronic oxygen at 2 liters Coronary artery disease. Hypertension Hyperlipidemia chronic tobacco dependence Plan Agree with admission to [facility] unit under the care of Dr. Cruz. Did review old records and speak with primary care, however, she is unclear if patient has diagnosed macular degeneration and she was not currently at her office. Chronic oxygen at 2 liters Continue on home DuoNeb and Anoro Ellipta inhaler Monitor blood pressures Continue on aspirin, atenolol, lisinopril and a atorvastatin Encourage patient to participate in unit activities and provide a safe environment Hospitalist services will continue to medical management existing comorbidities during his stay on the [facility] unit. At time of discharge medical care will return to PCP, Jannet Gutierrez 03/23/18 Psych: Continuing to monitor patient for symptoms; consider use of Zyprexa though may cause increased agitation/restlessness if patient truly has LBD. Will order head CT without contrast. 03/24/18 Psych: Spoke with /DPOA and daughters for ~30 minutes. Discussed risks/benefits and agreed to start Zyprexa 2.5mg PO q HS. 03/25/18 Psych note- Continue current care
[2018-03-25] MEDS: ATORVASTATIN 40 MG TABLET PO SCH (20:05)
[2018-03-25] MEDS: OLANZapine 2.5 MG TABLET PO SCH (20:05)
[2018-03-25] MEDS: ASPIRIN *EC* 81 MG TABLET PO SCH (20:05)
[2018-03-26] MEDS ORDERED: ACETAMINOPHEN 325 MG TABLET PO PRN (08:47)
[2018-03-26] MEDS: LISINOPRIL 20 MG TABLET PO SCH (09:47)
[2018-03-26] MEDS: ATENOLOL 50 MG TABLET PO SCH (09:47)
--- NOTE | 2018-03-26 09:47 | Progress Note ---
- Date 03/26/18 Subjective: Fab was sitting at the table in the dayroom. He c/o left leg pain, which is chronic arthritis pain. Sometimes when he stands up initially his leg feels like jello. He states that he's seen a chiropractor for this and was told there' s nothing that can be done. Otherwise he's doing well and denies any chest pain , SOA, abdominal pain, n/v/d/c, weakness or dizziness. He's been eating and drinking well. He's been cooperative with cares. Objective Vital signs: Temperature 97.8 F 03/26/18 08:00 Pulse Rate 70 03/26/18 08:00 Respiratory Rate 18 03/26/18 08:00 Blood Pressure 110/58 03/26/18 08:00 Pulse Oximetry 92 03/26/18 08:00 Height/Weight/BMI: Height 1.83 m Weight 88.7 kg Body Mass Index 26.5 - Constitutional Present: no acute distress, well nourished, well developed - Routine HEENT Exam Head: Present: normocephalic Eye: Present: PERRL. Absent: conjunctival icterus, scleral injection ENT: Present: mucous membranes moist, oropharynx clear - Routine Respiratory Exam Present: decreased breath sounds - Routine Cardiovascular Exam Present: RRR, S1, S2 - Routine Abdominal Exam Present: soft, normoactive bowel sounds, non distended, non tender - Routine Extremities Exam Present: no edema - Routine Skin Exam Present: intact, dry, warm - Routine Neurological Exam Present: alert, CN II-XII intact, moving all extremities, normal speech - Routine Psychiatric Exam Present: normal affect, normal thought process, cooperative Results - Labs CBC & Chem 7: 03/22/18 12:38 03/22/18 12:38 Assessment and Plan Assessment and Plan: Impression Psychosis Visual hallucinations Chronic vision problems-suspect macular degeneration COPD-chronic oxygen at 2 liters Coronary artery disease. Hypertension Hyperlipidemia chronic tobacco dependence Plan Labs, imaging studies reviewed. CT head negative. BP occasionally low but pt denies symptoms. Could consider reducing lisinopril or atenolol dose. HR mildly bradycardic at times. Patient takes 1 Aleve at home every other day for leg pain - will resume here. Renal function is preserved. Psychiatric notes reviewed. Resuscitation Status: Full Code - Physician Narrative Narrative: Date: 03/26/18 Time: 943 Hospital Course Summary Disclaimer: The visit summary below is not to be considered part of the above Progress Note. Hospital Course: Impression Psychosis Visual hallucinations Chronic vision problems-suspect macular degeneration COPD-chronic oxygen at 2 liters Coronary artery disease. Hypertension Hyperlipidemia chronic tobacco dependence Plan Agree with admission to [facility] unit under the care of Dr. Cruz. Did review old records and speak with primary care, however, she is unclear if patient has diagnosed macular degeneration and she was not currently at her office. Chronic oxygen at 2 liters Continue on home DuoNeb and Anoro Ellipta inhaler Monitor blood pressures Continue on aspirin, atenolol, lisinopril and a atorvastatin Encourage patient to participate in unit activities and provide a safe environment Hospitalist services will continue to medical management existing comorbidities during his stay on the [facility] unit. At time of discharge medical care will return to PCP, Jannet Gutierrez 03/23/18 Psych: Continuing to monitor patient for symptoms; consider use of Zyprexa though may cause increased agitation/restlessness if patient truly has LBD. Will order head CT without contrast. 03/24/18 Psych: Spoke with /DPOA and daughters for ~30 minutes. Discussed risks/benefits and agreed to start Zyprexa 2.5mg PO q HS. 03/25/18 Psych note- Continue current care 03/26/18 Labs, imaging studies reviewed. CT head negative. BP occasionally low but pt denies symptoms. Could consider reducing lisinopril or atenolol dose. HR mildly bradycardic at times. Patient takes 1 Aleve at home every other day for leg pain - will resume here. Renal function is preserved.
[2018-03-26] MEDS: NAPROXEN 220 MG TABLET PO PRN (13:08)
--- NOTE | 2018-03-26 14:22 | Neuropsych Progress Note ---
[facility] Subjective Date: 03/26/18 - Sujective/Severity of Illness Medications: Albuterol/Ipratropium (Duoneb) 3 ml AEROSOL PRN PRN Last Admin: 03/25/18 12:05 Dose: 3 ml Aspirin (Ecotrin) 81 mg PO [facility] Last Admin: 03/25/18 20:05 Dose: 81 mg Atenolol (Tenormin) 50 mg PO DAILY [facility] Last Admin: 03/26/18 09:47 Dose: Not Given Atorvastatin Calcium (Lipitor) 40 mg PO [facility] Last Admin: 03/25/18 20:05 Dose: 40 mg Haloperidol (Haldol) 0.5 mg PO Q6H PRN PRN Reason: Extreme agitation Haloperidol Lactate (Haldol) 0.5 mg IM Q6H PRN PRN Reason: Extreme agitation Lisinopril (Prinivil) 20 mg PO DAILY [facility] Last Admin: 03/26/18 09:47 Dose: Not Given Lorazepam (Ativan) 0.5 mg PO Q6H PRN PRN Reason: Extreme agitation Last Admin: 03/23/18 20:17 Dose: 0.5 mg Lorazepam (Ativan Inj) 0.5 mg IM Q6H PRN PRN Reason: Extreme agitation Naproxen (Aleve (Naproxen) 220 Mg) 220 mg PO BIDWM PRN PRN Reason: Pain Last Admin: 03/26/18 13:08 Dose: 220 mg Olanzapine (Zyprexa) 2.5 mg PO [facility] Last Admin: 03/25/18 20:05 Dose: 2.5 mg Subjective: Patient seen and chart reviewed. Case discussed with nursing. Nursing reports pt is doing well. Sleeping well and has a good appetite. No behaviors noted. On face to face the pt is pleasant. He reports he is doing well and voices no concerns. Mood is stable. Tolerating meds Start Time: 12:30 Stop Time: 12:45 Mental Status Exam Vitals: Last Vital Signs Temp 97.8 F 03/26/18 08:00 Pulse 70 03/26/18 08:00 Resp 18 03/26/18 08:00 BP 110/58 03/26/18 08:00 Pulse Ox 92 03/26/18 08:00 Height: 1.83 m Weight: 88.7 kg - Mental Status Exam Muscle Strength/Tone: Normal Dressing: Casual Grooming: Fair Attitude: Cooperative Motor Activity: Retardation Eye Contact: Good Speech: Normal Volume: Loud Rhythm: Appropriate Rhythm Orientation: Oriented X4 Mood: Neutral Rate of Thoughts: Delayed Thought Organization: Organized Associations: Intact Abstract Reasoning: Poor abstract reasoning Thought Content: Other (Minimizes psych sx) Perception/Psychotic: Psychotic Current Hallucinations: Visual Language: Naming Intact Fund of Knowledge: David aware current events Memory: Poor-recent Suicidal Ideation: Denies Homicidal Ideation: Denies Insight: Limited Judgement: Limited Impulse Control: Fair - Laboratory Result Diagrams: 03/22/18 12:38 03/22/18 12:38 Assessment and Plan (1) Psychosis Qualifiers: Schizoaffective disorder type: unspecified Current visit: Yes Status: Acute (2) Nicotine use disorder Current visit: Yes Status: Acute Hospital Course Summary Disclaimer: The visit summary below is not to be considered part of the above Progress Note. Hospital Course: Impression Psychosis Visual hallucinations Chronic vision problems-suspect macular degeneration COPD-chronic oxygen at 2 liters Coronary artery disease. Hypertension Hyperlipidemia chronic tobacco dependence Plan Agree with admission to [facility] under the care of Dr. Cruz. Did review old records and speak with primary care, however, she is unclear if patient has diagnosed macular degeneration and she was not currently at her office. Chronic oxygen at 2 liters Continue on home DuoNeb and Anoro Ellipta inhaler Monitor blood pressures Continue on aspirin, atenolol, lisinopril and a atorvastatin Encourage patient to participate in unit activities and provide a safe environment Hospitalist services will continue to medical management existing comorbidities during his stay on the [facility] unit. At time of discharge medical care will return to PCP, Jannet Gutierrez 03/23/18 Psych: Continuing to monitor patient for symptoms; consider use of Zyprexa though may cause increased agitation/restlessness if patient truly has LBD. Will order head CT without contrast. 03/24/18 Psych: Spoke with /DPOA and daughters for ~30 minutes. Discussed risks/benefits and agreed to start Zyprexa 2.5mg PO q HS. 03/25/18 Psych note- Continue current care 03/26/18 Labs, imaging studies reviewed. CT head negative. BP occasionally low but pt denies symptoms. Could consider reducing lisinopril or atenolol dose. HR mildly bradycardic at times. Patient takes 1 Aleve at home every other day for leg pain - will resume here. Renal function is preserved. 03/26/18 Psych note- Continue current care
[2018-03-26] MEDS: OLANZapine 2.5 MG TABLET PO SCH (20:05)
[2018-03-26] MEDS: ASPIRIN *EC* 81 MG TABLET PO SCH (20:05)
[2018-03-26] MEDS: ATORVASTATIN 40 MG TABLET PO SCH (20:05)
[2018-03-26] MEDS: ALBUTEROL/IPRATROPIUM 2.5mg-0.5mg/3ml NEB AEROSOL PRN (20:30)
[2018-03-27] MEDS: ATENOLOL 50 MG TABLET PO SCH (08:08)
[2018-03-27] MEDS: LISINOPRIL 20 MG TABLET PO SCH (08:08)
--- NOTE | 2018-03-27 15:10 | Neuropsych Progress Note ---
[facility] Subjective Date: 03/28/18 - Sujective/Severity of Illness Medications: Albuterol/Ipratropium (Duoneb) 3 ml AEROSOL PRN PRN Last Admin: 03/26/18 20:30 Dose: 3 ml Aspirin (Ecotrin) 81 mg PO [facility] Last Admin: 03/26/18 20:05 Dose: 81 mg Atenolol (Tenormin) 50 mg PO DAILY [facility] Last Admin: 03/27/18 08:08 Dose: 50 mg Atorvastatin Calcium (Lipitor) 40 mg PO [facility] Last Admin: 03/26/18 20:05 Dose: 40 mg Haloperidol (Haldol) 0.5 mg PO Q6H PRN PRN Reason: Extreme agitation Haloperidol Lactate (Haldol) 0.5 mg IM Q6H PRN PRN Reason: Extreme agitation Lisinopril (Prinivil) 20 mg PO DAILY [facility] Last Admin: 03/27/18 08:08 Dose: 20 mg Lorazepam (Ativan) 0.5 mg PO Q6H PRN PRN Reason: Extreme agitation Last Admin: 03/23/18 20:17 Dose: 0.5 mg Lorazepam (Ativan Inj) 0.5 mg IM Q6H PRN PRN Reason: Extreme agitation Naproxen (Aleve (Naproxen) 220 Mg) 220 mg PO BIDWM PRN PRN Reason: Pain Last Admin: 03/26/18 13:08 Dose: 220 mg Olanzapine (Zyprexa) 2.5 mg PO [facility] Last Admin: 03/26/18 20:05 Dose: 2.5 mg Subjective: Patient seen and chart reviewed. Case discussed with treatment team. On interview, patient reports that he is doing well but perseverates on discharge. He describes his mood as "alright." Patient denies any SI, HI or AVH. He minimizes any recent VH ("only flutters") and attributes them to eye problems. Patient denies any adverse side effects related to psychotropic medications. Nursing staff report patient yelled out at night but hasn't had any other significant behavioral difficulties. Patient has been adherent with medications. Patient slept 6.5 hours overnight. VSS. Patient is eating well. Psychotropic PRNs required in the past 24 hours: none. SLUMS . There is some concern about patient returning home with his because she had difficulty remembering her own name when attempting to visit the unit. Will discuss with family. Patient has rescinded daughter's DPOA so is only DPOA now. Will attempt to have patient name another DPOA if he is able to choose an appropriate person. Start Time: 11:00 Stop Time: 11:20 Mental Status Exam Vitals: Last Vital Signs Temp 96.6 F L 03/27/18 08:00 Pulse 60 03/27/18 08:00 Resp 16 03/27/18 08:00 BP 135/75 03/27/18 08:00 Pulse Ox 94 03/27/18 08:00 Height: 1.83 m Weight: 88.7 kg - Mental Status Exam Muscle Strength/Tone: Normal Dressing: Casual Grooming: Fair Attitude: Cooperative Motor Activity: Retardation Eye Contact: Good Speech: Normal Volume: Loud Rhythm: Appropriate Rhythm Orientation: Oriented X4 Mood: Neutral Affect: Relaxed Rate of Thoughts: Delayed Thought Organization: Organized Associations: Intact Abstract Reasoning: Poor abstract reasoning Computation: Poor Computation Thought Content: Other (Minimizes psych sx) Perception/Psychotic: Hx psychosis, not current Current Hallucinations: Visual Language: Naming Intact Fund of Knowledge: Other (decreased; SLUMS ) Memory: Poor-recent Suicidal Ideation: Denies Homicidal Ideation: Denies Insight: Limited Judgement: Limited Impulse Control: Fair - Laboratory Result Diagrams: 03/22/18 12:38 03/22/18 12:38 Assessment and Plan (1) Psychosis Qualifiers: Schizoaffective disorder type: unspecified Current visit: Yes Status: Acute (2) Nicotine use disorder Current visit: Yes Status: Acute I do not feel it is safe for patient to return home with only at this point ; discussing with family this issue as well as naming another DPOA. Hospital Course Summary Disclaimer: The visit summary below is not to be considered part of the above Progress Note. Hospital Course: Impression Psychosis Visual hallucinations Chronic vision problems-suspect macular degeneration COPD-chronic oxygen at 2 liters Coronary artery disease. Hypertension Hyperlipidemia chronic tobacco dependence Plan Agree with admission to [facility] unit under the care of Dr. Cruz. Did review old records and speak with primary care, however, she is unclear if patient has diagnosed macular degeneration and she was not currently at her office. Chronic oxygen at 2 liters Continue on home DuoNeb and Anoro Ellipta inhaler Monitor blood pressures Continue on aspirin, atenolol, lisinopril and a atorvastatin Encourage patient to participate in unit activities and provide a safe environment Hospitalist services will continue to medical management existing comorbidities during his stay on the [facility] unit. At time of discharge medical care will return to PCP, Jannet Gutierrez 03/23/18 Psych: Continuing to monitor patient for symptoms; consider use of Zyprexa though may cause increased agitation/restlessness if patient truly has LBD. Will order head CT without contrast. 03/24/18 Psych: Spoke with /DPOA and daughters for ~30 minutes. Discussed risks/benefits and agreed to start Zyprexa 2.5mg PO q HS. 03/25/18 Psych note- Continue current care 03/26/18 Labs, imaging studies reviewed. CT head negative. BP occasionally low but pt denies symptoms. Could consider reducing lisinopril or atenolol dose. HR mildly bradycardic at times. Patient takes 1 Aleve at home every other day for leg pain - will resume here. Renal function is preserved. 03/26/18 Psych note- Continue current care. 03/27/18 Psych: I do not feel it is safe for patient to return home with only at this point; discussing with family this issue as well as naming another DPOA.
[2018-03-27] MEDS: ALBUTEROL/IPRATROPIUM 2.5mg-0.5mg/3ml NEB AEROSOL PRN (19:18)
[2018-03-27] MEDS: NAPROXEN 220 MG TABLET PO PRN (20:26)
[2018-03-27] MEDS: ATORVASTATIN 40 MG TABLET PO SCH (20:27)
[2018-03-27] MEDS: ASPIRIN *EC* 81 MG TABLET PO SCH (20:27)
[2018-03-27] MEDS: OLANZapine 2.5 MG TABLET PO SCH (20:27)
[2018-03-28] MEDS: ATENOLOL 50 MG TABLET PO SCH (08:04)
[2018-03-28] MEDS: LISINOPRIL 20 MG TABLET PO SCH (08:04)
[2018-03-28] MEDS: NAPROXEN 220 MG TABLET PO PRN ×2 (08:04→20:32)
--- NOTE | 2018-03-28 10:43 | Neuropsych Progress Note ---
[facility] Subjective Date: 03/28/18 - Sujective/Severity of Illness Medications: Albuterol/Ipratropium (Duoneb) 3 ml AEROSOL PRN PRN Last Admin: 03/27/18 19:18 Dose: 3 ml Aspirin (Ecotrin) 81 mg PO [facility] Last Admin: 03/27/18 20:27 Dose: 81 mg Atenolol (Tenormin) 50 mg PO DAILY [facility] Last Admin: 03/28/18 08:04 Dose: 50 mg Atorvastatin Calcium (Lipitor) 40 mg PO [facility] Last Admin: 03/27/18 20:27 Dose: 40 mg Haloperidol (Haldol) 0.5 mg PO Q6H PRN PRN Reason: Extreme agitation Haloperidol Lactate (Haldol) 0.5 mg IM Q6H PRN PRN Reason: Extreme agitation Lisinopril (Prinivil) 20 mg PO DAILY [facility] Last Admin: 03/28/18 08:04 Dose: 20 mg Lorazepam (Ativan) 0.5 mg PO Q6H PRN PRN Reason: Extreme agitation Last Admin: 03/23/18 20:17 Dose: 0.5 mg Lorazepam (Ativan Inj) 0.5 mg IM Q6H PRN PRN Reason: Extreme agitation Naproxen (Aleve (Naproxen) 220 Mg) 220 mg PO BIDWM PRN PRN Reason: Pain Last Admin: 03/28/18 08:04 Dose: 220 mg Olanzapine (Zyprexa) 2.5 mg PO [facility] Last Admin: 03/27/18 20:27 Dose: 2.5 mg Subjective: Patient seen and chart reviewed. Case discussed with treatment team. On interview, patient reports that he is doing well and feeling well physically. Patient denies any SI, HI or AVH. He minimizes any recent VH ("only flutters") and attributes them to eye problems (for example, seeing a tree change field of vision when looking at it for more than a couple of seconds). Patient denies any adverse side effects related to psychotropic medications. Nursing staff report patient seems to have nightmares and talks/cries out at night but hasn't had any other significant behavioral difficulties. Patient has been adherent with medications. Patient slept 8.5 hours overnight. VSS. Patient is eating well. Psychotropic PRNs required in the past 24 hours: none. SLUMS . Start Time: 11:00 Stop Time: 11:20 Mental Status Exam Vitals: Last Vital Signs Temp 97.6 F 03/28/18 08:00 Pulse 63 03/28/18 08:00 Resp 16 03/28/18 08:00 BP 148/81 H 03/28/18 08:00 Pulse Ox 92 03/28/18 08:00 Height: 1.83 m Weight: 88.7 kg - Mental Status Exam Muscle Strength/Tone: Normal Dressing: Casual Grooming: Fair Attitude: Cooperative Motor Activity: Retardation Eye Contact: Good Speech: Normal Volume: Loud Rhythm: Appropriate Rhythm Orientation: Oriented X4 Mood: Neutral Affect: Relaxed Rate of Thoughts: Delayed Thought Organization: Organized Associations: Intact Abstract Reasoning: Poor abstract reasoning Computation: Poor Computation Thought Content: Other (Minimizes psych sx) Perception/Psychotic: Hx psychosis, not current Current Hallucinations: Visual Language: Naming Intact Fund of Knowledge: Other (decreased; SLUMS ) Memory: Poor-recent Suicidal Ideation: Denies Homicidal Ideation: Denies Insight: Limited Judgement: Limited Impulse Control: Fair - Laboratory Result Diagrams: 03/22/18 12:38 03/22/18 12:38 Assessment and Plan (1) Psychosis Qualifiers: Schizoaffective disorder type: unspecified Current visit: Yes Status: Acute (2) Nicotine use disorder Current visit: Yes Status: Acute Continue current care while we are working with family to develop safe discharge plan for patient. Will request meeting with DPOA tomorrow. Hospital Course Summary Disclaimer: The visit summary below is not to be considered part of the above Progress Note. Hospital Course: Impression Psychosis Visual hallucinations Chronic vision problems-suspect macular degeneration COPD-chronic oxygen at 2 liters Coronary artery disease. Hypertension Hyperlipidemia chronic tobacco dependence Plan Agree with admission to [facility] under the care of Dr. Cruz. Did review old records and speak with primary care, however, she is unclear if patient has diagnosed macular degeneration and she was not currently at her office. Chronic oxygen at 2 liters Continue on home DuoNeb and Anoro Ellipta inhaler Monitor blood pressures Continue on aspirin, atenolol, lisinopril and a atorvastatin Encourage patient to participate in unit activities and provide a safe environment Hospitalist services will continue to medical management existing comorbidities during his stay on the [facility] unit. At time of discharge medical care will return to PCP, Jannet Gutierrez 03/23/18 Psych: Continuing to monitor patient for symptoms; consider use of Zyprexa though may cause increased agitation/restlessness if patient truly has LBD. Will order head CT without contrast. 03/24/18 Psych: Spoke with /DPOA and daughters for ~30 minutes. Discussed risks/benefits and agreed to start Zyprexa 2.5mg PO q HS. 03/25/18 Psych note- Continue current care 03/26/18 Labs, imaging studies reviewed. CT head negative. BP occasionally low but pt denies symptoms. Could consider reducing lisinopril or atenolol dose. HR mildly bradycardic at times. Patient takes 1 Aleve at home every other day for leg pain - will resume here. Renal function is preserved. 03/26/18 Psych note- Continue current care. 03/27/18 Psych: I do not feel it is safe for patient to return home with only at this point; discussing with family this issue as well as naming another DPOA. Will request YULISSA. 03/28/18 Psych: Continue current care while we are working with family to develop safe discharge plan for patient. Will request meeting with DPOA tomorrow.
--- NOTE | 2018-03-28 14:33 | Progress Note ---
- Date 03/28/18 Subjective: Fab was sitting at a table in the dayroom. He denied any specific complaints including chest pain, increased dyspnea (breathing at baseline), abdominal pain or GI complaints. He's been eating/drinking well. He voiced repeated concerns about having recent pneumonia then being admitted here, where he is getting double doses of medications. His timeline of pneumonia and being admitted here was difficult to follow. Objective Vital signs: Temperature 97.6 F 03/28/18 08:00 Pulse Rate 63 03/28/18 08:00 Respiratory Rate 16 03/28/18 08:00 Blood Pressure 148/81 H 03/28/18 08:00 Pulse Oximetry 92 03/28/18 08:00 Height/Weight/BMI: Height 1.83 m Weight 88.7 kg Body Mass Index 26.5 - Constitutional Present: no acute distress, well nourished, well developed - Routine HEENT Exam Head: Present: normocephalic Eye: Present: PERRL. Absent: conjunctival icterus, scleral injection - Routine Respiratory Exam Present: decreased breath sounds - Routine Cardiovascular Exam Present: RRR, S1, S2 - Routine Abdominal Exam Present: soft, normoactive bowel sounds, non distended, non tender - Routine Extremities Exam Present: no edema - Routine Skin Exam Present: intact, dry, warm - Routine Neurological Exam Present: alert, normal speech - Routine Psychiatric Exam Present: normal affect, cooperative Results - Labs CBC & Chem 7: 03/22/18 12:38 03/22/18 12:38 Assessment and Plan (1) Major neurocognitive disorder Problem details: r/o LBD Current visit: Yes Status: Acute Assessment and Plan: Impression Psychosis Visual hallucinations Chronic vision problems-suspect macular degeneration COPD-chronic oxygen at 2 liters Coronary artery disease. Hypertension Hyperlipidemia chronic tobacco dependence Plan Vitals stable, blood pressure varies from borderline low to moderately elevated at times. No changes recommended. Psychiatric notes reviewed. Patient not cognitively able to return home based on testing. Resuscitation Status: Full Code - Physician Narrative Narrative: Date: 03/28/18 Time: 1430 Hospital Course Summary Disclaimer: The visit summary below is not to be considered part of the above Progress Note. Hospital Course: Impression Psychosis Visual hallucinations Chronic vision problems-suspect macular degeneration COPD-chronic oxygen at 2 liters Coronary artery disease. Hypertension Hyperlipidemia chronic tobacco dependence Plan Agree with admission to [facility] under the care of Dr. Cruz. Did review old records and speak with primary care, however, she is unclear if patient has diagnosed macular degeneration and she was not currently at her office. Chronic oxygen at 2 liters Continue on home DuoNeb and Anoro Ellipta inhaler Monitor blood pressures Continue on aspirin, atenolol, lisinopril and a atorvastatin Encourage patient to participate in unit activities and provide a safe environment Hospitalist services will continue to medical management existing comorbidities during his stay on the [facility] unit. At time of discharge medical care will return to PCP, Jannet Gutierrez 03/23/18 Psych: Continuing to monitor patient for symptoms; consider use of Zyprexa though may cause increased agitation/restlessness if patient truly has LBD. Will order head CT without contrast. 03/24/18 Psych: Spoke with /DPOA and daughters for ~30 minutes. Discussed risks/benefits and agreed to start Zyprexa 2.5mg PO q HS. 03/25/18 Psych note- Continue current care 03/26/18 Labs, imaging studies reviewed. CT head negative. BP occasionally low but pt denies symptoms. Could consider reducing lisinopril or atenolol dose. HR mildly bradycardic at times. Patient takes 1 Aleve at home every other day for leg pain - will resume here. Renal function is preserved. 03/26/18 Psych note- Continue current care. 03/27/18 Psych: I do not feel it is safe for patient to return home with only at this point; discussing with family this issue as well as naming another DPOA. Will request YULISSA. 03/28/18 Psych: Continue current care while we are working with family to develop safe discharge plan for patient. 03/28/18 Vitals stable, blood pressure varies from borderline low to moderately elevated at times. No changes recommended.
[2018-03-28] MEDS: ALBUTEROL/IPRATROPIUM 2.5mg-0.5mg/3ml NEB AEROSOL PRN (15:00)
[2018-03-28] MEDS: ASPIRIN *EC* 81 MG TABLET PO SCH (20:27)
[2018-03-28] MEDS: OLANZapine 2.5 MG TABLET PO SCH (20:27)
[2018-03-28] MEDS: ATORVASTATIN 40 MG TABLET PO SCH (20:27)
[2018-03-29 07:41] VITALS: BP 140/69; PULSE 63; RESP 16; TEMP 96.4; O2SAT 92
[2018-03-29] MEDS: ATENOLOL 50 MG TABLET PO SCH (08:05)
[2018-03-29] MEDS: NAPROXEN 220 MG TABLET PO PRN (08:05)
[2018-03-29] MEDS: LISINOPRIL 20 MG TABLET PO SCH (08:05)
--- NOTE | 2018-03-29 10:55 | Neuropsych Progress Note ---
[facility] Subjective Date: 03/29/18 - Sujective/Severity of Illness Medications: Albuterol/Ipratropium (Duoneb) 3 ml AEROSOL PRN PRN Last Admin: 03/28/18 15:00 Dose: 3 ml Aspirin (Ecotrin) 81 mg PO [facility] Last Admin: 03/28/18 20:27 Dose: 81 mg Atenolol (Tenormin) 50 mg PO DAILY [facility] Last Admin: 03/29/18 08:05 Dose: 50 mg Atorvastatin Calcium (Lipitor) 40 mg PO HS [facility] Last Admin: 03/28/18 20:27 Dose: 40 mg Haloperidol (Haldol) 0.5 mg PO Q6H PRN PRN Reason: Extreme agitation Haloperidol Lactate (Haldol) 0.5 mg IM Q6H PRN PRN Reason: Extreme agitation Lisinopril (Prinivil) 20 mg PO DAILY [facility] Last Admin: 03/29/18 08:05 Dose: 20 mg Lorazepam (Ativan) 0.5 mg PO Q6H PRN PRN Reason: Extreme agitation Last Admin: 03/23/18 20:17 Dose: 0.5 mg Lorazepam (Ativan Inj) 0.5 mg IM Q6H PRN PRN Reason: Extreme agitation Naproxen (Aleve (Naproxen) 220 Mg) 220 mg PO BIDWM PRN PRN Reason: Pain Last Admin: 03/29/18 08:05 Dose: 220 mg Olanzapine (Zyprexa) 2.5 mg PO [facility] Last Admin: 03/28/18 20:27 Dose: 2.5 mg Subjective: Patient seen and chart reviewed. Case discussed with treatment team. On interview, patient reports that he is doing well and feeling well physically. Patient denies any SI, HI or AVH. He minimizes any recent VH ("only flutters") and attributes them to eye problems (for example, seeing a tree change field of vision when looking at it for more than a couple of seconds). His description seems consistent with this rather than overt hallucinations such as people described earlier in hospitalization. Patient denies any adverse side effects related to psychotropic medications. Nursing staff report patient seems to have nightmares and talks/cries out at night but hasn't had any other significant behavioral difficulties. Patient has been adherent with medications. Patient slept 8.5 hours overnight. VSS. Patient is eating well. Psychotropic PRNs required in the past 24 hours: none. SLUMS . Family meeting held with patient's son/DPOA. Described nature of cognitive deficits and suspected progression. Described possible diagnosis of Lewy body dementia and need for close f/u. Discussed recommendations of YULISSA that patient require 24/7 supervision for safety. Discussed concerns on our part that his mother may also have dementia and had difficulty remembering her own name when she tried to sign in to visit. He felt mother was just stressed but I stated that I felt it was more significant than that and they should have her evaluated as well as a driving evaluation at [place] as she is still driving. She is also responsible for patient's med management and I stated that I thought someone else should be responsible for this. I stated that I did not feel she could adequately supervise patient for safety given suspected deficits. I also stated I did not feel she could serve as DPOA for financial or healthcare for patient. Son is now financial and medical DPOA. He stated that he is still going to consult with mother re: medical decisions. I provided education into dementia, lack of insight and stated that I did not feel she was likely to have capacity to understand or make such decisions and that he should be primary animal caretaker. Discussed several safety concerns about what could happen if patient/ were not supervised for safety. He expressed understanding and stated that he or family could supervise them frequently (though 24/7 recommended). He is interested in home health services. Recommended placement in facility but DPOA refuses despite understanding risks of such. Discussed patient should not be driving, should not have medications to weapons , firearms or medications. JERMAINE Knight and Adan present for family meeting. All questions answered to his satisfaction. Recommended psychiatric f/u and he agreed. He requested to have patient discharged today. Start Time: 10:00 Stop Time: 11:00 Mental Status Exam Vitals: Last Vital Signs Temp 96.4 F L 03/29/18 07:41 Pulse 63 03/29/18 07:41 Resp 16 03/29/18 07:41 BP 140/69 H 03/29/18 07:41 Pulse Ox 92 03/29/18 07:41 Height: 1.83 m Weight: 88.7 kg - Mental Status Exam Muscle Strength/Tone: Normal Dressing: Casual Grooming: Fair Attitude: Cooperative Motor Activity: Retardation Eye Contact: Good Speech: Normal Volume: Loud Rhythm: Appropriate Rhythm Orientation: Oriented X4 Mood: Neutral Affect: Relaxed Rate of Thoughts: Delayed Thought Organization: Organized Associations: Intact Abstract Reasoning: Poor abstract reasoning Computation: Poor Computation Thought Content: Other (Minimizes psych sx) Perception/Psychotic: Hx psychosis, not current Current Hallucinations: Visual Language: Naming Intact Fund of Knowledge: Other (decreased; SLUMS ) Memory: Poor-recent Suicidal Ideation: Denies Homicidal Ideation: Denies Insight: Limited Judgement: Limited Impulse Control: Fair - Laboratory Result Diagrams: 03/22/18 12:38 03/22/18 12:38 Assessment and Plan (1) Psychosis Qualifiers: Schizoaffective disorder type: unspecified Current visit: Yes Status: Acute (2) Major neurocognitive disorder Problem details: Moderate, likely due to multiple etiologies including vascular , with behavioral disturbance r/o Lewy body dementia Current visit: Yes Status: Acute (3) Nicotine use disorder Current visit: Yes Status: Acute Discharge to home with son today with recommendation for 14/03 supervision by someone other than patient's . Hospital Course Summary Disclaimer: The visit summary below is not to be considered part of the above Progress Note. Hospital Course: Impression Psychosis Visual hallucinations Chronic vision problems-suspect macular degeneration COPD-chronic oxygen at 2 liters Coronary artery disease. Hypertension Hyperlipidemia chronic tobacco dependence Plan Agree with admission to [facility] under the care of Dr. Cruz. Did review old records and speak with primary care, however, she is unclear if patient has diagnosed macular degeneration and she was not currently at her office. Chronic oxygen at 2 liters Continue on home DuoNeb and Anoro Ellipta inhaler Monitor blood pressures Continue on aspirin, atenolol, lisinopril and a atorvastatin Encourage patient to participate in unit activities and provide a safe environment Hospitalist services will continue to medical management existing comorbidities during his stay on the [facility] unit. At time of discharge medical care will return to PCP, Jannet Gutierrez 03/23/18 Psych: Continuing to monitor patient for symptoms; consider use of Zyprexa though may cause increased agitation/restlessness if patient truly has LBD. Will order head CT without contrast. 03/24/18 Psych: Spoke with /DPOA and daughters for ~30 minutes. Discussed risks/benefits and agreed to start Zyprexa 2.5mg PO q HS. 03/25/18 Psych note- Continue current care 03/26/18 Labs, imaging studies reviewed. CT head negative. BP occasionally low but pt denies symptoms. Could consider reducing lisinopril or atenolol dose. HR mildly bradycardic at times. Patient takes 1 Aleve at home every other day for leg pain - will resume here. Renal function is preserved. 03/26/18 Psych note- Continue current care. 03/27/18 Psych: I do not feel it is safe for patient to return home with only at this point; discussing with family this issue as well as naming another DPOA. Will request YULISSA. 03/28/18 Psych: Continue current care while we are working with family to develop safe discharge plan for patient. Will request meeting with DPOA tomorrow. 03/29/18 Psych: Discharge to home with son today with recommendation for / supervision by someone other than patient's .
--- NOTE | 2018-04-10 08:16 | Neuropsychiatric Disch Summary ---
Discharge Information Date of admission: 03/22/18 13:25 Anticipated date of discharge: 03/29/18 Attending Physician: Lidia Cruz MD Primary care physician: Jannet Parks APRN Consults: 03/22/18 14:29 Case Management Consult [CONS] Routine Reason For Exam: Medical comorbidities Physician Consult [CONS] Routine Consulting Provider: Bryan Herndon Reason For Exam: Medical comorbidities Ordering Provider has Notified Supervisor Metal Hanging: No Comment: Nursing please notify - Discharge Diagnosis (1) Psychosis Status: Chronic (2) Major neurocognitive disorder Status: Chronic (3) Nicotine use disorder Status: Resolved (1) Psychosis Qualifiers: Schizoaffective disorder type: unspecified Current visit: Yes Status: Acute (2) Major neurocognitive disorder Problem details: Moderate, likely due to multiple etiologies including vascular , with behavioral disturbance r/o Lewy body dementia Current visit: Yes Status: Acute (3) Nicotine use disorder Current visit: Yes Status: Acute Discharge to home with son today with recommendation for 14/03 supervision by someone other than patient's . - Laboratory Labs: 03/22/18 12:38 03/22/18 12:38 Date of Admission: 03/22/18 13:25 History of Present Illness: Patient is a 77-year-old , retired male who was admitted to [facility] on 03/22/18 after being brought by his for increasing agitation, worsening hallucinations. On interview, patient is pleasant but minimizes symptoms and does not feel there is a need for hospitalization. He states that "he has been seeing things" but attributes this to his cataracts and states "he knows what was going on." He mostly describes seeing objects moving up/down and [id number] (though family has reported more detailed hallucinations). He states that it bothered him at first but he is used to it now. He endorses feeling irritable at times and snapping at his family members but denies aggression. He states that he has always slept for only a few hours at a time and he continues to have difficulty sleeping the whole night through because he is easily woken up. He complains of multiple falls recently. He denies SI, HI, AH. Patient denies any prior psych hx, hospitalizations or suicide attempts. Per /DPOA: Brissa reports that pt was taken to the hospital in [place] of 2018 for "one to two days" for pneumonia and upon release began to demonstrate auditory/visual hallucinations and paranoid delusions. Pt would be alone in a room of their residence and Brissa would hear pt speaking. When asked, pt would indicate that there was a small girl in the room who he was talking to. Pt has also indicated that family members should not turn the television off because the grandchildren were watching the television. Brissa reports that when this occurs the grandchildren are not in home, though pt reports the grandchildren are watching television. Pt has also reported that "they are coming to get me". Pt has not identified to Brissa who "they" are. Pt has decreased/interrupted sleep; pt wakes and reports feeling disoriented and will call out of Brissa. Pt has increased agitation. Brissa reports that this will be situational; pt struggles putting on his oxygen mask, becomes frustrated, and breaks the tube for the mask. Brissa does not report any physical aggression. Pt will become disoriented while in the residence and engage in wandering behavior; pt will attempt to go the bathroom but go out the front door instead and become agitated /disorientated. Pt had a triple bypass but Brissa was unable to remember the date of this procedure. Pt also had pneumonia in November of 2017. Pt had his visual acuity decrease over the last "one to two years". Brissa reports no other significant medical history. Pt has no hx of mental health diagnosis and Brissa reports that he does not have suicidal ideation. Brissa did report that pt has stated, "why don't you just get a gun and shoot me". Brissa reports this is when pt is sitting and becomes frustrated with a task. Pt's father was admitted to a [place] psychiatric unit due to having a "break down". No other significant familial mental health noted. Hospital Course This is a general summary of the patient's hospital course. For more details refer to the complete medical record. Hospital course: Impression Psychosis Visual hallucinations Chronic vision problems-suspect macular degeneration COPD-chronic oxygen at 2 liters Coronary artery disease. Hypertension Hyperlipidemia chronic tobacco dependence Plan Agree with admission to [facility] under the care of Dr. Cruz. Did review old records and speak with primary care, however, she is unclear if patient has diagnosed macular degeneration and she was not currently at her office. Chronic oxygen at 2 liters Continue on home DuoNeb and Anoro Ellipta inhaler Monitor blood pressures Continue on aspirin, atenolol, lisinopril and a atorvastatin Encourage patient to participate in unit activities and provide a safe environment Hospitalist services will continue to medical management existing comorbidities during his stay on the [facility]. At time of discharge medical care will return to PCP, Jannet Gutierrez 03/23/18 Psych: Continuing to monitor patient for symptoms; consider use of Zyprexa though may cause increased agitation/restlessness if patient truly has LBD. Will order head CT without contrast. 03/24/18 Psych: Spoke with /DPOA and daughters for ~30 minutes. Discussed risks/benefits and agreed to start Zyprexa 2.5mg PO q HS. 03/25/18 Psych note- Continue current care 03/26/18 Labs, imaging studies reviewed. CT head negative. BP occasionally low but pt denies symptoms. Could consider reducing lisinopril or atenolol dose. HR mildly bradycardic at times. Patient takes 1 Aleve at home every other day for leg pain - will resume here. Renal function is preserved. 03/26/18 Psych note- Continue current care. 03/27/18 Psych: I do not feel it is safe for patient to return home with only at this point; discussing with family this issue as well as naming another DPOA. Will request YULISSA. 03/28/18 Psych: Continue current care while we are working with family to develop safe discharge plan for patient. Will request meeting with DPOA tomorrow. 03/29/18 Psych: Discharge to home with son today with recommendation for 14/03 supervision by someone other than patient's . Resuscitation Status: Do Not Resuscitate Discharge Plan - Med Rec/Dispo Referrals/Follow Up: [facility] Figueredo [Provider Group] (Dr. Kyle Lee on 05/22/18 at 11:00 am for Med Management. Check-in at 10:30 am. ) Jannet Parks APRN [Primary Care Provider] - (Jannet Parks APRN on at 1:00 pm for Hosp. follow-up. ) Additional Instructions: Discharge Diagnosis:Psychosis, unspecified Major neurocognitive disorder, moderate, with behavioral disturbance Likely due to multiple etiologies, including vascular r/o Lewy body dementia Reasons for Admission: Hallucinations, not sleeping, and anxiety. IN CASE OF PSYCHIATRIC EMERGENCY, CONTACT GENERATIONS STAFF AT [phone] ( available 24 hrs daily) Prescriptions: New OLANZapine [Zyprexa] 2.5 mg PO HS 30 Days #30 tab Discontinued Melatonin/Pyridoxine HCl (B6) [Melatonin 5 mg Tablet] 1 each PO DAILY No Action Atorvastatin [Lipitor] 40 mg PO HS #0 Aspirin [Aspirin EC] 81 mg PO HS Lisinopril [Prinivil] 20 mg PO DAILY Atenolol [Tenormin] 50 mg PO DAILY Vit A/Vit C/Vit E/Zinc/Copper [Preservision Areds Tablet] 1 tab PO BID Albuterol/Ipratropium [Duoneb] 1 unit AEROSOL TID Vitamin E (Dl,Tocopheryl Acet) [Vitamin E] 1,000 unit PO DAILY Mirtazapine [Remeron] 15 mg PO HS Albuterol/Ipratropium [Duoneb] 3 ml AEROSOL Q4HR PRN each PRN Reason: Shortness Of Air OLANZapine [Zyprexa] 1.25 mg PO Q6HR PRN #10 tab PRN Reason: Agitation Umeclidinium Brm/Vilanterol Tr [Anoro Ellipta 62.5-25 Mcg INH] 1 dose IH DAILY PEG 3350 17gm PACKET [Miralax] 17 gm PO DAILY packet - Disposition [facility] Health Service - Dismissal Complete Discharge Instructions are:: Complete
== END 2018-03-29 12:45 | disposition home health service (06) | DRG 885 ==
LOC: ED 12:07 → SRG 13:25
PROVIDERS: ADMIT Psychiatry & Neurology Psychiatry; ATTEND Psychiatry & Neurology Psychiatry

== ENCOUNTER 2018-03-30 12:16 | Inpatient (IN) ==
--- NOTE | 2018-03-30 13:55 | Emergency Department Report ---
SOB HPI - General Chief Complaint: Shortness of Breath/Dyspnea Stated Complaint: DIFFICULTY BREATHING Time Seen by Provider: 03/30/18 12:29 - History of Present Illness 77-year-old male brought in by EMS with acute respiratory distress. He was at 36 % on room air at home. EMS placed him on 10 L and were able to get him up to mid 80%. Solu-Medrol 125 mg was given IV as well as 2 breathing treatments of DuoNeb. Patient has a history of COPD and has a DO NOT RESUSCITATE order. Today , he told his son that he was "done" as he could not get any more air to breathe. This is been a progressive situation, but suddenly worsened today. He did have chest tightness at that time as well. He was admitted last week to [facility] for geriatric psychiatric treatment. - Related Data Home Medications Medication Instructions Recorded Confirmed Atorvastatin [Lipitor] 40 mg PO HS #0 02/21/12 03/30/18 Aspirin [Aspirin EC] 81 mg PO HS 11/28/17 03/30/18 Atenolol [Tenormin] 50 mg PO DAILY 11/28/17 03/30/18 Lisinopril [Prinivil] 20 mg PO DAILY 11/28/17 03/30/18 Vit A/Vit C/Vit E/Zinc/Copper 1 tab PO BID 11/28/17 03/30/18 [Preservision Areds Tablet] Albuterol/Ipratropium [Duoneb] 1 unit AEROSOL TID 03/22/18 03/30/18 Umeclidinium Brm/Vilanterol Tr 1 dose IH DAILY 03/22/18 03/30/18 [Anoro Ellipta 62.5-25 Mcg INH] Vitamin E (Dl,Tocopheryl Acet) 1,000 unit PO DAILY 03/22/18 03/30/18 [Vitamin E] Mirtazapine [Remeron] 15 mg PO HS 03/30/18 03/30/18 Previous Rx's Medication Instructions Recorded OLANZapine [Zyprexa] 2.5 mg PO HS 30 Days #30 tab 03/29/18 Allergies Allergy/AdvReac Type Severity Reaction Status Date / Time No Known Allergies Allergy Verified 03/30/18 12:19 Review of Systems All systems: reviewed and negative except as stated PFSH Patient Stated Medical History Dementia Yes Cataracts Yes Hearing Loss Yes Other HEENT Yes: Glaucoma Hypertension Yes Chronic Obstructive Pulmonary Yes Disease (COPD) Gastroesophageal Reflux Yes Disease Ulcer Yes Hx Renal Disease No Osteoarthritis Yes Medical History Updates: Hypertension. Hyperlipidemia. Coronary artery disease with history of CABG. Suspect COPD. Chronic tobacco dependence Surgical History: CABG x3-2005. Cardiac [id number]. Amirani - Social History Smoking status: Current some day smoker Packs-years: 55 Substance use type: does not use Alcohol intake frequency: does not drink Housing: house Household members: spouse Current residence: Apartment/Private Home Physical Exam - Limitations Limitations: other (respiratory distress limiting ability to speak) - General General appearance: alert, in distress - Normal Exams: Head:: Normocephalic without trauma Abdomen:: Bowel sounds positive, soft, non-tender, non-distended, no hepatosplenomegaly, masses or bruits noted Neurological:: Patient is alert, and oriented, cranial nerves, motor/sensory/ cerebellar, exams w/o gross deficits, to observation - Respiratory Respiratory exam: Present: other (diminished breath sounds, prolonged expiration ,) - Cardiovascular Cardiovascular exam: Present: normal rhythm, tachycardia Course Vital Signs Temperature 97.3 F 03/30/18 12:15 Pulse Rate 97 03/30/18 12:15 Respiratory Rate 26 H 03/30/18 12:15 Blood Pressure 138/93 H 03/30/18 12:15 Pulse Oximetry 87 L 03/30/18 12:15 Temperature 97.3 F 03/30/18 12:15 Pulse Rate 96 03/30/18 12:30 Respiratory Rate 33 H 03/30/18 12:30 Blood Pressure 121/78 03/30/18 12:27 Pulse Oximetry 93 03/30/18 12:30 Shortness of Breath/Dyspnea - [facility] Narrative Medical decision making narrative: Peripheral IV placed, normal saline 500 mL bolus ordered. EKG, CBC, CMP, troponin and CT angio pulmonary embolus ordered. Respiratory therapy consultation for DuoNeb treatment. ABG obtained which showed pH of 7.24 with PCO2 of 80 and bicarbonate 35. BiPAP started with 100% oxygen and O2 saturations increased to 94%. Patient feels he is breathing better and is more comfortable. Family did discuss the fact that he is DO NOT RESUSCITATE that they want to make sure he is not intubated and he supports this. CT angiogram chest shows complete left-sided pneumothorax. Family informed and patient informed. Both are in favor of treatment. Dr. Kaur is women's apparel salesperson and consulted. Patient will be taken to the OR. Admitted to hospitalist, CCU. - Differential Diagnosis Likely: acute exacerbation of chronic obstructive airways disease, congestive heart failure, community acquired pneumonia, asthma with exacerbation, pulmonary embolism - Medical Records Attestation: I reviewed the patient's medical records. - Lab Data Attestation: I reviewed the patient's lab results. Result diagrams: 03/30/18 12:50 03/30/18 12:50 Lab Results 03/30/18 03/30/18 03/30/18 Range/Units 12:50 12:50 12:50 WBC 13.4 H (4.5-11.0) T/MM3 RBC 4.36 L (4.50-5.90) M/MM3 Hgb 13.8 (13.5-17.5) GM/DL Hct 43.8 (41-53) % MCV 100.5 H (80-100) UM3 MCH 31.7 (26-34) UUG MCHC 31.5 (31-37) GM/DL RDW Std Deviation 48.5 (36.9-50.2) FL Plt Count 196 (130-400) T/MM3 MPV 10.1 (9.4-12.4) UM3 Immature Gran % (Auto) 0.4 (0.0-0.5) % Neut % (Auto) 79.9 H (33-66) % Lymph % (Auto) 10.0 L (23-45) % [place] % (Auto) 6.5 (0-9.0) % Eos % (Auto) 3.1 (0-4) % Baso % (Auto) 0.1 (0-2) % Neut # (Auto) 10.7 H (1.8-7.7) T/MM3 Lymph # (Auto) 1.3 (1-4.8) T/MM3 [place] # (Auto) 0.9 H (0-0.8) T/MM3 Eos # (Auto) 0.4 (0-0.5) T/MM3 Baso # (Auto) 0.0 (0-0.2) T/MM3 Abs Immat Gran (auto) 0.05 H (0.00-0.03) T/MM3 Sample Site Alveolar Air PO2 (4.0-801.0) mmHg ABG pH (7.350-7.450) ABG pCO2 (34.0-45.0) MMHG ABG pO2 (80.0-100.0) MMHG ABG HCO3 (22.0-26.0) MEQ/L ABG Total CO2 (23.0-27.0) MEQ/L ABG O2 Saturation (95.0-98.0) % ABG Base Excess (-2.0-2.0) MMOL/L Modified Bryan Test A-a Gradient (0.0-801.0) mmHg a/A Ratio (-1.0-101.0) % O2 Delivery Method FiO2 % Turbidity < 20 (0-20) Sodium 145 (136-146) MEQ/L Potassium 5.4 H (3.6-5) MEQ/L Chloride 106 (98-107) MEQ/L Carbon Dioxide 31 H (22-30) MEQ/L Anion Gap 8 (5-15) meq/L BUN 16.0 (9-20) MG/DL Creatinine 0.8 (0.8-1.5) mg/dL Estimated Creat Clear 73 (>50) mL/min GFR Calculation 94 (>60) mL/min BUN/Creatinine Ratio 20 (6-26) RATIO Glucose 195 H (75-110) MG/DL Calculated Osmolality 285 H (261-280) MOSM/KG Calcium 8.7 (8.4-10.2) MG/DL Total Bilirubin 0.90 (0.20-1.30) MG/DL Icterus Index < 2 (0-7) AST 28 (17-59) U/L ALT 15 (1-50) U/L Alkaline Phosphatase 92 (38-126) U/L Troponin I < 0.012 (0-0.12) ng/ml NT-Pro-B Natriuret Pep 429 H (0-175) pg/mL Total Protein 6.5 (6.3-8.2) g/dL Albumin 4.1 (3.5-5.0) g/dL Globulin 2.4 (2.4-3.6) G/DL Albumin/Globulin Ratio 1.7 (1.1-2.2) RATIO Plasma Lactate 0.7 (0.6-2.2) MMOL/L Specimen Hemolysis < 15 (0-25) 03/30/18 Range/Units 12:59 WBC (4.5-11.0) T/MM3 RBC (4.50-5.90) M/MM3 Hgb (13.5-17.5) GM/DL Hct (41-53) % MCV (80-100) UM3 MCH (26-34) UUG MCHC (31-37) GM/DL RDW Std Deviation (36.9-50.2) FL Plt Count (130-400) T/MM3 MPV (9.4-12.4) UM3 Immature Gran % (Auto) (0.0-0.5) % Neut % (Auto) (33-66) % Lymph % (Auto) (23-45) % [place] % (Auto) (0-9.0) % Eos % (Auto) (0-4) % Baso % (Auto) (0-2) % Neut # (Auto) (1.8-7.7) T/MM3 Lymph # (Auto) (1-4.8) T/MM3 [place] # (Auto) (0-0.8) T/MM3 Eos # (Auto) (0-0.5) T/MM3 Baso # (Auto) (0-0.2) T/MM3 Abs Immat Gran (auto) (0.00-0.03) T/MM3 Sample Site L radial Alveolar Air PO2 598.8 (4.0-801.0) mmHg ABG pH 7.249 L (7.350-7.450) ABG pCO2 80 H* (34.0-45.0) MMHG ABG pO2 77.0 L (80.0-100.0) MMHG ABG HCO3 35.0 H (22.0-26.0) MEQ/L ABG Total CO2 37.4 H (23.0-27.0) MEQ/L ABG O2 Saturation 91.8 L (95.0-98.0) % ABG Base Excess 4.8 H (-2.0-2.0) MMOL/L Modified Bryan Test Positive A-a Gradient 521.8 (0.0-801.0) mmHg a/A Ratio 12.9 (-1.0-101.0) % O2 Delivery Method Bipap FiO2 100 % Turbidity (0-20) Sodium (136-146) MEQ/L Potassium (3.6-5) MEQ/L Chloride (98-107) MEQ/L Carbon Dioxide (22-30) MEQ/L Anion Gap (5-15) meq/L BUN (9-20) MG/DL Creatinine (0.8-1.5) mg/dL Estimated Creat Clear (>50) mL/min GFR Calculation (>60) mL/min BUN/Creatinine Ratio (6-26) RATIO Glucose (75-110) MG/DL Calculated Osmolality (261-280) MOSM/KG Calcium (8.4-10.2) MG/DL Total Bilirubin (0.20-1.30) MG/DL Icterus Index (0-7) AST (17-59) U/L ALT (1-50) U/L Alkaline Phosphatase (38-126) U/L Troponin I (0-0.12) ng/ml NT-Pro-B Natriuret Pep (0-175) pg/mL Total Protein (6.3-8.2) g/dL Albumin (3.5-5.0) g/dL Globulin (2.4-3.6) G/DL Albumin/Globulin Ratio (1.1-2.2) RATIO Plasma Lactate (0.6-2.2) MMOL/L Specimen Hemolysis (0-25) - Radiology Data Attestation: I reviewed the patient's radiology results. - EKG Data EKG #1 EKG attestation: Yes: I reviewed and interpreted this EKG. EKG results narrative: 81 bpm EKG shows normal: sinus rhythm Rate: normal Rhythm: NSR Jud/QRS: left axis deviation Interpretation: nonspecific ST-T wave changes Disposition Clinical Impression: Pneumothorax on left Disposition: 02 To [facility] [place] Acute Care Condition: Stable Prescriptions: No Action Atorvastatin [Lipitor] 40 mg PO HS #0 Aspirin [Aspirin EC] 81 mg PO HS Lisinopril [Prinivil] 20 mg PO DAILY Atenolol [Tenormin] 50 mg PO DAILY Vit A/Vit C/Vit E/Zinc/Copper [Preservision Areds Tablet] 1 tab PO BID Albuterol/Ipratropium [Duoneb] 1 unit AEROSOL TID Vitamin E (Dl,Tocopheryl Acet) [Vitamin E] 1,000 unit PO DAILY OLANZapine [Zyprexa] 2.5 mg PO HS 30 Days #30 tab Mirtazapine [Remeron] 15 mg PO HS Umeclidinium Brm/Vilanterol Tr [Anoro Ellipta 62.5-25 Mcg INH] 1 dose IH DAILY Referrals: Jannet Parks APRN [Primary Care Provider] - Time of Disposition: 15:19 - Seen By: physician
[2018-03-30] MEDS ORDERED: IOHEXOL 350mg/ml 75ml INJECTION ONE (14:01)
[2018-03-30] MEDS ORDERED: SALINE FLUSH 10ml SYRINGE ONE (14:01)
--- NOTE | 2018-03-30 14:42 | CT Scan Report ---
Indication: dyspnea, copd, acute acidemia PROCEDURE: CT angio pulm emboli: Encounter: Initial Comparison: Chest CT dated December 01, 2017 Technique: Axial CT pulmonary angiographic phase images were performed through the chest after the administration of intravenous contrast. Coronal and Sagittal MIP reconstructed images were created and reviewed. Automated Exposure Control and Iterative Reconstruction dose reducing techniques were utilized. Contrast: Omnipaque 350 62 mL Findings: Pulmonary arteries: Exam is diagnostic to the segmental pulmonary arterial level. No definite filling defects identified to confirm a pulmonary embolus. There is admixture of contrast limiting the exam. Other findings: There is a large left-sided pneumothorax with complete collapse of the left lung. The right upper lobe is clear. There is atelectasis and consolidation in the right lower lobe. There is only minimal rightward mediastinal shift currently. The heart size is normal. No pericardial effusion. No axillary or mediastinal adenopathy. Heart size is normal. Prior CABG. The upper abdomen shows cholelithiasis, but no acute findings. Adenomatous hyperplasia of the left adrenal gland. Impression: Large left-sided pneumothorax with complete collapse of the left lung and possible early or developing tension physiology. Recommend emergent needle thoracostomy or chest tube placement. Findings were called to the emergency room physician Dr. Jara at 1430 on March 30, 2018. .
--- NOTE | 2018-03-30 15:34 | History & Physical Report ---
History of Present Illness Date: 03/30/18 Chief complaint: spontaneous pneumothorax HPI: Patient is 77-year-old male who is known to the hospitalist services from recent [facility] for visual hallucinations. Patient was discharged yesterday 03/29/18. He went home with his in [place], [place]. He is chronically on 2 liters of oxygen by nasal cannula and had been doing fine until this morning. reports patient seemed more short of breath. Patient complained of feeling with increased dyspnea. His oxygen was turned up however, he continued to have shortness of breath. EMS was called and patient was found to be significantly hypoxic with saturations 73% on home O2. He was placed on 10 -12 L on arrival to ER sats were 80's. Chest CT reveled large left sided pneumothorax. He has been on Bi-pap since that time. Review of Systems All systems PM: 10-point ROS was reviewed, no additional remarkable complaints except - Respiratory Respiratory: Present: as per HPI, dyspnea, wheezing Past Medical History Medical History Updates: Hypertension. Hyperlipidemia. Coronary artery disease with history of CABG. Suspect COPD. Chronic tobacco dependence. Macular degeneration Surgical History: CABG x3-2005. Cardiac [id number]. Amirani Family History: Father-heart disease Mother-Lung disease Family History: As Above - Social History Smoking status: Current some day smoker Packs-years: 55 Substance use type: does not use Alcohol intake frequency: does not drink Housing: house Household members: spouse Current occupational status: retired Current residence: Apartment/Private Home Social history: Resides in [place], [place] with PCP- Jannet Yadav APRN Medications Home Medications Medication Instructions Recorded Confirmed Type Atorvastatin [Lipitor] 40 mg PO HS #0 02/21/12 03/30/18 History Aspirin [Aspirin EC] 81 mg PO HS 11/28/17 03/30/18 History Atenolol [Tenormin] 50 mg PO DAILY 11/28/17 03/30/18 History Lisinopril [Prinivil] 20 mg PO DAILY 11/28/17 03/30/18 History Vit A/Vit C/Vit E/Zinc/Copper 1 tab PO BID 11/28/17 03/30/18 History [Preservision Areds Tablet] Albuterol/Ipratropium [Duoneb] 1 unit AEROSOL TID 03/22/18 03/30/18 History Umeclidinium Brm/Vilanterol Tr 1 dose IH DAILY 03/22/18 03/30/18 History [Anoro Ellipta 62.5-25 Mcg INH] Vitamin E (Dl,Tocopheryl Acet) 1,000 unit PO DAILY 03/22/18 03/30/18 History [Vitamin E] OLANZapine [Zyprexa] 2.5 mg PO HS 30 Days #30 tab 03/29/18 03/30/18 Rx Mirtazapine [Remeron] 15 mg PO HS 03/30/18 03/30/18 History Allergies Allergy/AdvReac Type Severity Reaction Status Date / Time No Known Allergies Allergy Verified 03/30/18 12:19 Exam Vital Signs: Temperature 97.3 F 03/30/18 12:15 Pulse Rate 96 03/30/18 12:30 Respiratory Rate 33 H 03/30/18 12:30 Blood Pressure 121/78 03/30/18 12:27 Pulse Oximetry 93 03/30/18 12:30 Height/Weight/BMI: Height 1.8 m Weight 88.3 kg - Constitutional Present: moderate distress, well nourished, well developed - Routine HEENT Exam Eye: Present: EOMI ENT: Present: mucous membranes moist, dentition normal - Routine Respiratory Exam Absent: wheezes Comments: Left sided chest wall- absent breath sounds - Routine Cardiovascular Exam Present: RRR, S1, S2. Absent: murmur - Routine Abdominal Exam Present: soft, normoactive bowel sounds, non distended. Absent: tenderness - Routine Extremities Exam Present: full ROM, normal capillary refill - Routine Skin Exam Present: intact, dry, warm - Routine Neurological Exam Present: alert, oriented X3, CN II-XII intact, moving all extremities - Routine Psychiatric Exam Present: normal affect, cooperative Results - Labs CBC & Chem 7: 03/30/18 12:50 03/30/18 12:50 Microbiology Results: Microbiology 03/30/18 12:50 Peripheral/Iv Start Blood Culture - Preliminary Culture Initiated - Results Pending 03/30/18 12:50 Peripheral/Iv Start Blood Culture - Preliminary Culture Initiated - Results Pending - ABG Interpretation ABG results: 03/30/18 12:59 ABG pH 7.249 L ABG pCO2 80 H* ABG pO2 77.0 L ABG HCO3 35.0 H ABG Total CO2 37.4 H ABG O2 Saturation 91.8 L ABG Base Excess 4.8 H Assessment and Plan Assessment and Plan: Impression Left-sided pneumothorax COPD-chronic oxygen use at 2 liters Hyperkalemia (POA) Leukocytosis (POA) Coronary artery disease Dyslipidemia Chronic tobacco [id number]-year Macular degeneration Plan Admit patient, inpatient status under care of Dr. Herndon to ICU for acute left-sided pneumothorax. Consultation placed to Dr. Kaur for placement of chest tube. Will continue on BiPAP for oxygenation. DuoNeb breathing treatments 3 times a day. Monitor patient on cardiac telemetry. Half-normal saline at 75 ml/hr for gentle hydration. Pt currently NPO - but will review and continue home meds. Lisinopril and atenolol for history of hypertension. Patient may require nicotine patch given long-time use of tobacco. Monitor routine laboratories daily. Morphine and ativan as needed. SCD to BLE for PPX. Discuss advance directives with patient's , he does wish to be a do not resuscitate. Will discuss further orders and plan of care with attending, Dr. Herndon. At time of discharge medical care will return to primary care provider, Jannet Yadav APRN at . DVT Prophylaxis: SCD's Resuscitation Status: Do Not Resuscitate - Physician Narrative Physician: Bryan Herndon MD Narrative: Date: 03/30/18 Time: 1926 Have independently interviewed and examined pt. Chart reviewed. Case discussed with ED physician and my BLUEPRINT TRACER. Care plan developed with my supervision; agree with above. Patient present to [facility] [place] secondary to sudden onset of SOA. Chronically on 2L. This morning, breathing rapidly deteriorated. Progressively more and more SOA despite increasing O2 flow. Not had any trauma or injury that he could recall. Reports on EMS ride to ED he 'saw the angels.' In ED, found to have Pneumothorax. Place in inpatient admission at CCU for definitive treatment. Dr Kaur consulted for chest tube placement. Pt seen in CCU after chest tube placement. Notes some pain, but breathing feels better. Lungs: decrease CV: regular AB: soft nt BS decreased MSE: awake alert, groggy. Plan: Inpatient admission - CCU for close monitoring of cardiopulmonary status. Dr Kaur consulted and placed chest tube. Flow flow IVF for support. Potassium elevated - will need to hold KAYLEIGH and monitor. Hold blood thinners due to chest tube. Pulmonary toilet. Can advance diet now that Sx done. DNR per his requests. Hospital Course Summary Disclaimer: The visit summary below is not to be considered part of the above Progress Note. Hospital Course: 03/30/18 Admit patient, inpatient status under care of Dr. Herndon to ICU for acute left-sided pneumothorax. Consultation placed to Dr. Kaur for placement of chest tube. Will continue on BiPAP for oxygenation. DuoNeb breathing treatments 4 times a day and prn. Monitor patient on cardiac telemetry. Half-normal saline at 75 ml/hr for gentle hydration. Pt currently NPO - but will review and continue home meds, holding ASA due to chest tube. Lisinopril and atenolol for history of hypertension. Patient may require nicotine patch given long-time use of tobacco. Monitor routine laboratories daily. Morphine and Ativan as needed for pain/air hunger control. SCD to BLE for PPX. Discuss advance directives with patient's , he does wish to be a do not resuscitate At time of discharge medical care will return to primary care provider, Jannet Yadav APRN at .
[2018-03-30] MEDS ORDERED: ONDANSETRON 4 MG/2 ML INJECTION IVP PRN (15:56)
[2018-03-30] MEDS ORDERED: MORPHINE SULFATE 2mg INJECTION IVP PRN (15:56)
[2018-03-30 16:38] VITALS: BMI 27.0
[2018-03-30] MEDS: 1/2 NS 1,000 ML IV SCH (16:44)
--- NOTE | 2018-03-30 16:44 | Anesthesia Preoperative Report ---
Anesthesia Preoperative Record - Date and Time Date: 03/30/18 Preoperative Diagnosis: Respiratory failure secondary to pnemothorax Proposed Procedure: Left chest tube placement NPO Since Date: 03/30/18 NPO Since Time: 08:00 Allergies/Adverse Reactions: Allergies Allergy/AdvReac Type Severity Reaction Status Date / Time No Known Allergies Allergy Verified 03/30/18 12:19 - Vital Signs Vital Signs: Temperature 97.3 F 03/30/18 12:15 Pulse Rate 96 03/30/18 16:26 Respiratory Rate 19 03/30/18 16:26 Blood Pressure 121/78 03/30/18 12:27 Pulse Oximetry 94 03/30/18 16:26 Height and Weight: Height 1.8 m Weight 88 kg Body Mass Index 27.0 - Medications Inpatient Medications: Current Medications Sodium Chloride (1/2 Normal Saline) 1,000 mls @ 75 mls/hr IV .[id number] FABRICE Lorazepam (Ativan Inj) 0.5 mg IVP Q4H PRN PRN Reason: Agitation/Air hunger/Pain Morphine Sulfate (Morphine Sulf 2 Mg Inj) 2 mg IVP Q2HR PRN PRN Reason: Pain Ondansetron HCl (Zofran) 4 mg IVP Q6H PRN PRN Reason: Nausea Sodium Chloride (Iv Flush) 10 - 80 ml IVF PRN PRN PRN Reason: Flushing Home Medications: Home Medications Medication Instructions Recorded Confirmed Type Atorvastatin [Lipitor] 40 mg PO HS #0 02/21/12 03/30/18 History Aspirin [Aspirin EC] 81 mg PO HS 11/28/17 03/30/18 History Atenolol [Tenormin] 50 mg PO DAILY 11/28/17 03/30/18 History Lisinopril [Prinivil] 20 mg PO DAILY 11/28/17 03/30/18 History Vit A/Vit C/Vit E/Zinc/Copper 1 tab PO BID 11/28/17 03/30/18 History [Preservision Areds Tablet] Albuterol/Ipratropium [Duoneb] 1 unit AEROSOL TID 03/22/18 03/30/18 History Umeclidinium Brm/Vilanterol Tr 1 dose IH DAILY 03/22/18 03/30/18 History [Anoro Ellipta 62.5-25 Mcg INH] Vitamin E (Dl,Tocopheryl Acet) 1,000 unit PO DAILY 03/22/18 03/30/18 History [Vitamin E] OLANZapine [Zyprexa] 2.5 mg PO HS 30 Days #30 tab 03/29/18 03/30/18 Rx Mirtazapine [Remeron] 15 mg PO HS 03/30/18 03/30/18 History Is Patient on Beta Rico?: Yes Beta Rico Last Dose Date/Time: Atenolol 03/30/2018 - Medical History Respiratory: Reports: Chronic Obstructive Pulmonary Disease (COPD) Cardiovascular: Reports: Hypertension Gastrointestional: Reports: Gastroesophageal Reflux Disease, Ulcer Neuro/Musculoskeletal: Reports: Back Problems - Surgical History HEENT Surgeries: Reports: Eye Surgery Cardiac Surgeries/Treatments: Reports: Coronary Artery Bypass Graft (triple) DENIES: Pacemaker Respiratory Surgery/Treatments: Reports: Oxygen Administration (wears O2 continuously) DENIES: BiPAP Use, CPAP Use Reproductive Surgery/Treatment: DENIES: Mastectomy Anesthesia Reactions: None Hx Family Anesthesia Reaction: No History of Motion Sickness: No - Social History Smoking Status: Current every day smoker Packs per day: 1 Pack-years: 55 Substance Use Type: does not use Alcohol Intake Frequency: does not drink - Pertinent Findings Laboratory: CBC and BMP 03/30/18 12:50 03/30/18 12:50 BMP 03/30/18 12:50 Sodium 145 Potassium 5.4 H Chloride 106 Carbon Dioxide 31 H BUN 16.0 Creatinine 0.8 Glucose 195 H Calcium 8.7 Cardiac Enzymes 03/30/18 Range/Units 12:50 Troponin I < 0.012 (0-0.12) ng/ml Liver Function 03/30/18 Range/Units 12:50 Total Bilirubin 0.90 (0.20-1.30) MG/DL AST 28 (17-59) U/L ALT 15 (1-50) U/L Alkaline Phosphatase 92 (38-126) U/L Albumin 4.1 (3.5-5.0) g/dL EKG: Sinus Rhythm - Physical Exam Respiratory Exam: Present: lungs clear Cardiovascular Exam: Present: regular rate and rhythm - Airway Assessment Mallampati Score: II TMD: 3 Fingerbreadths Neck Extension: poor Overall Assessment: may be difficult mask vent, may be difficult intubation - ASA ASA Score: 3, E - Plan Anesthesia: General Inhalation Gases - Discussion Discussion: Discussed risks/options/alternatives of anesthesia and questions answered. Patient consents. Nursing pain assessment noted. Present for Discussion: spouse Attestation Statement: Prior to the delivery of any anesthetic medication, I examined the patient, developed the plan, obtained the patient's consent and discussed the risk and benefits of the procedure with the patient/guardian. - Additional Information Seen by Anesthesia: Yes
[2018-03-30] MEDS ORDERED: CEFAZOLIN 1 G INJECTION IVP ONE (17:24)
--- NOTE | 2018-03-30 18:01 | General Surgery Procedure Note ---
Date of Procedure: 03/30/18 Surgeon: Natasha Postoperative Diagnosis: left pneumothorax Procedure: Insertion of left sided chest tube Estimated Blood Loss: See Anesthesia Record.
--- NOTE | 2018-03-30 18:21 | Consultation ---
DATE OF CONSULTATION 03/30/2018 HISTORY OF PRESENT ILLNESS This patient is 77 years old. The patient does have severe oxygen-dependent chronic obstructive pulmonary disease. He does ordinarily use oxygen at 2 liters per minute by nasal cannula at home. This patient was just dismissed from the [facility] on 03/29/2018. The patient was doing well until this morning. The patient did seem to become more short of breath on the morning of 03/30/2018. The patient had some increased dyspnea. His home oxygen was turned up but he continued to have shortness of breath. EMS was called. He was given oxygen by emergency medical services personnel and the oxygen saturation increased up to 80%. The patient was brought by EMS to [facility] Emergency Room. The patient did have arterial blood gases performed at [facility]. pH was 7.24. PCO2 was 80. Bicarbonate was 35. BiPAP was started with 100% oxygen and the oxygen saturation level for the patient did increase to 94%. The patient was breathing better and more comfortable after this. The patient did have a CT angiogram of the chest performed which did show a large left-sided pneumothorax. The CT angiogram performed on 03/30/2018 does show a large left-sided pneumothorax with complete collapse of the left lung. The patient has remained stable on continued treatment with BiPAP. He is being transferred from the emergency room to the intensive care unit. PHYSICAL EXAMINATION VITAL SIGNS: Pulse is 96. Respiratory rate is 19. Oxygen saturation is 94% on BiPAP at the present time. NEUROLOGIC: The patient is alert and oriented. He is in no distress at this time. CHEST: There are good breath sounds at the right side of the chest. Breath sounds are absent at the left side of the chest. There are no wheezes, rales or rhonchi at the right side of the chest at this time. IMPRESSION 1. Large left-sided pneumothorax with complete collapse of the left lung. 2. Severe oxygen-dependent chronic obstructive pulmonary disease. PLAN The patient will undergo insertion of a left-sided chest tube on an urgent basis. PATIENT EDUCATION I did inform the patient of the nature of the insertion of left-sided chest tube procedure. Expected benefits were reviewed. Potential risks and complications were reviewed. The patient does appear to understand and does wish to proceed. LOU
[2018-03-30] MEDS ORDERED: ACETAMINOPHEN 500 MG TABLET PO PRN (18:24)
--- NOTE | 2018-03-30 18:26 | Anesthesia Postoperative Note ---
- Date and Time Date: 03/30/18 Time: 18:26 - Status Patient Participated in Evaluation: Patient Participated in Person Vital Signs: Temperature 98.0 F 03/30/18 17:15 Pulse Rate 78 03/30/18 17:15 Respiratory Rate 14 03/30/18 17:15 Blood Pressure 133/63 03/30/18 17:15 Pulse Oximetry 96 03/30/18 17:15 Respiratory Function: Airway Patent Cardiovascular Function: Regular Pulse EKG: Sinus Rhythm Mental Status: Alert and Oriented Pain Intensity: 0 Hydration: IV Infusing Nausea/Vomiting: None Complications During Recover: None Apparent - Follow-Up Instructions Instructions: Per Surgeon
[2018-03-30] MEDS ORDERED: BISACODYL 10 MG SUPPOSITORY RECTALLY PRN (19:18)
[2018-03-30] MEDS ORDERED: ALBUTEROL/IPRATROPIUM 2.5mg-0.5mg/3ml NEB AEROSOL PRN (19:19)
[2018-03-30] MEDS: ALBUTEROL/IPRATROPIUM 2.5mg-0.5mg/3ml NEB AEROSOL SCH (19:38)
--- NOTE | 2018-03-30 19:53 | Operative Note ---
DATE OF OPERATION 03/30/2018 PREOPERATIVE DIAGNOSES 1. Large left-sided pneumothorax with complete collapse of the left lung. 2. Severe oxygen-dependent chronic obstructive pulmonary disease. POSTOPERATIVE DIAGNOSES 1. Large left-sided pneumothorax with complete collapse of the left lung. 2. Severe oxygen-dependent chronic obstructive pulmonary disease. OPERATION Insertion of left-sided chest tube. SURGEON Dr. Kaur ANESTHESIA General. ASA Class 3 DESCRIPTION OF OPERATION The patient was placed in supine position on the operating table. General anesthesia was satisfactorily induced. The patient did receive general anesthesia with endotracheal intubation. The left anterior chest and left lateral chest were prepped with ChloraPrep solution. Sterile drapes were placed. Skin and subcutaneous tissue were infiltrated with bupivacaine 0.25% without epinephrine. A chest tube insertion site at the left lateral chest wall between the anterior axillary line and the mid axillary line was selected. This incision site was at about the level of the nipple. The scalpel was used to make a short transversely oriented incision at the chest tube insertion site. Additional bupivacaine was infiltrated into the subcutaneous tissue, intercostal muscles and parietal pleura at the chest tube insertion site. Tissue was spread with a hemostat at the incision. The opening through the chest wall was then extended over the superior margin of a rib. The left pleural cavity was entered with a hemostat. A sterile gloved finger was used to enlarge the opening at the chest tube insertion site and also palpate within the pleural cavity to make sure that there were no adhesions within the pleural cavity immediately around the chest tube insertion site. A 28-Maori, [employer] brand chest tube was inserted through the incision up into the left pleural cavity and directed superiorly up into the left pleural cavity. The chest tube was secured to the skin at each side of the chest tube insertion site with a couple of stitches of 0-Nurolon suture. Skin margins at the incision were closed with some additional interrupted stitches of 0-Nurolon suture. The chest tube was connected to a Thora-Seal III drainage system. The position of the patient was changed from supine position to sitting position. The patient remained intubated. A portable upright chest x-ray was performed at this time in the operating room. The sterile field around the chest tube was maintained during this time. The portable upright chest x-ray did appear to show that there was re-expansion of the left lung. Chest tube position appeared satisfactory. The patient did then have dressings placed at the chest tube site. Vaseline gauze was placed around the chest tube at the insertion site. 4 x 4 gauze dressings were placed at the chest tube insertion site. Microfoam tape was placed at the chest tube insertion site to hold the dressings in place and secure the chest tube to the dressings. The chest tube/drainage tube connection was taped with Microfoam tape. Sterile technique was maintained throughout the procedure. The patient did appear to tolerate the procedure well. The patient was transferred from the operating room to the recovery room in stable condition. LOU
[2018-03-30] MEDS: MIRTAZAPINE 15 MG TABLET PO SCH (20:17)
[2018-03-30] MEDS: ATORVASTATIN 40 MG TABLET PO SCH (20:17)
[2018-03-30] MEDS: OLANZapine 2.5 MG TABLET PO SCH (20:18)
[2018-03-31] MEDS: IBUPROFEN 200 MG TABLET PO PRN ×3 (01:15→16:24)
[2018-03-31] MEDS: 1/2 NS 1,000 ML IV SCH (02:56)
[2018-03-31] MEDS: ALBUTEROL/IPRATROPIUM 2.5mg-0.5mg/3ml NEB AEROSOL SCH ×4 (07:00→20:39)
--- NOTE | 2018-03-31 08:01 | XRay Report ---
Indication: post chest tube placement on left PROCEDURE: XR chest post-procedure 1V: Encounter: Initial Comparison: CTA chest from the same date Findings: Interval left chest tube placement with the tip projecting laterally at the T4 level. Reexpansion of the left lung and evacuation of the left pneumothorax. No visible residual pneumothorax seen. Mild left lower lobe atelectasis remains. New endotracheal tube in place with the tip projecting 3.5 cm above the kwesi. New nasogastric tube in place with the tip projecting over the lower thoracic esophagus. Recommend advancement. Right lung shows mild basilar atelectasis. Heart size and mediastinal contours are stable. Impression: 1. New left chest tube with evacuation of the left pneumothorax. 2. Endotracheal tube appears appropriately positioned. 3. Nasogastric tube tip projects over the lower thoracic esophagus, recommended advancement. .
--- NOTE | 2018-03-31 08:08 | XRay Report ---
Indication: F/U pneumothorax PROCEDURE: XR chest 1V: Encounter: Initial Comparison: March 30, 2018 Findings: Left chest tube remains in place. The prior nasogastric and endotracheal tubes have been removed. No visible residual pneumothorax. There is development of mild reexpansion edema throughout the left lung. Right lung is stable in appearance with basilar atelectasis. Small pleural effusions are Heart size and mediastinal contours are stable. Prior CABG. Impression: No visible pneumothorax with left chest tube in place. Re-expansion edema. .
[2018-03-31] MEDS: POLYETHYL GLYCOL 3350 17gm PACKET PO SCH (09:16)
[2018-03-31] MEDS: ATENOLOL 50 MG TABLET PO SCH (09:17)
--- NOTE | 2018-03-31 11:33 | Progress Note ---
- Date 03/31/18 Subjective: F/U: Pneumothorax, acute on chronic respiratory failure Breathing better today-not feeling SOA or congested. Some cough. On Vapotherm to help oxygenation. Denies pain in chest. Tolerating chest tube, but nursing reports was pulling at it - would wake from sleep with a jerk and then pull at things. Did remove IV this way. Denies ab pain or nausea. Eating well. Wants to be up more. Reports needs to go to his eye doctor in [place] for appointment- does worry about missing this appointment as is crucial to help maintain his vision. Objective Vital signs: Temperature 98 F 03/31/18 08:01 Pulse Rate 68 03/31/18 10:00 Respiratory Rate 23 03/31/18 10:24 Blood Pressure 134/61 03/31/18 09:30 Pulse Oximetry 95 03/31/18 10:24 Height/Weight/BMI: Height 1.8 m Weight 88 kg Body Mass Index 27.0 - Constitutional Present: well nourished, well developed, average body habitus, cooperative - Routine HEENT Exam Head: Present: normocephalic, atraumatic Eye: Present: EOMI, PERRL, normal accommodation ENT: Present: mucous membranes moist - Routine Respiratory Exam Present: decreased breath sounds. Absent: respiratory distress, wheezes, crackles - Routine Cardiovascular Exam Present: RRR, no murmur - Routine Abdominal Exam Present: soft, normoactive bowel sounds, non distended, non tender. Absent: guarding - Routine Extremities Exam Present: pulses intact. Absent: cyanosis, clubbing - Routine Musculoskeletal Exam Musculoskeletal: Present: no clubbing or cyanosis - Routine Skin Exam Present: dry, warm - Routine Neurological Exam Present: alert, CN II-XII intact, moving all extremities, vision grossly intact , hearing grossly intact. Absent: normal speech - Routine Psychiatric Exam Present: normal affect, cooperative Results - Labs CBC & Chem 7: 03/31/18 04:18 03/31/18 04:18 Microbiology Results: Microbiology 03/31/18 06:27 Urine, Voided (Cc/notcc) Urine Culture - Preliminary Culture Initiated - Results Pending 03/30/18 12:50 Peripheral/Iv Start Blood Culture - Preliminary Culture Initiated - Results Pending 03/30/18 12:50 Peripheral/Iv Start Blood Culture - Preliminary Culture Initiated - Results Pending - ABG Interpretation ABG results: 03/30/18 12:59 ABG pH 7.249 L ABG pCO2 80 H* ABG pO2 77.0 L ABG HCO3 35.0 H ABG Total CO2 37.4 H ABG O2 Saturation 91.8 L ABG Base Excess 4.8 H Assessment and Plan (1) Pneumothorax on left Current visit: Yes Status: Acute Assessment and Plan: Impression Left-sided pneumothorax COPD-chronic oxygen use at 2 liters Hyperkalemia (POA) Leukocytosis (POA) - possible secondary to Solu-Medrol/stress Coronary artery disease Dyslipidemia Chronic tobacco [id number]-year Macular degeneration Plan Repeat CXR showing left lung expansion with chest tube, reexpansion edema. Saturating well with Vapotherm. Will stop IVF as patient eating well. Continue to hold ASA due to chest tube. Encourage ambulation with nursing assistance. Will recheck CBC in am due to leukocytosis. Repeat BMP in am due to hyperkalemia. Repeat CXR in am due to chest tube. Medically stable for transfer to surgical floor for continuation of chest tube care and support. Case discussed with CCU nursing. Time spent with patient care 25 minutes. DVT Prophylaxis: SCD's Resuscitation Status: Do Not Resuscitate - Time spent with patient Time with patient PN: 25 minutes - Physician Narrative Physician: Bryan Herndon MD Narrative: Date: 03/31/18 Time: 1130 Hospital Course Summary Disclaimer: The visit summary below is not to be considered part of the above Progress Note. Hospital Course: 03/30/18 Admit patient, inpatient status under care of Dr. Herndon to ICU for acute left-sided pneumothorax. Consultation placed to Dr. Kaur for placement of chest tube. Will continue on BiPAP for oxygenation. DuoNeb breathing treatments 4 times a day and prn. Monitor patient on cardiac telemetry. Half-normal saline at 75 ml/hr for gentle hydration. Pt currently NPO - but will review and continue home meds, holding ASA due to chest tube. Atenolol for hypertension. Hold lisinopril due to hyperkalemia. Patient may require nicotine patch given long-time use of tobacco. Monitor routine laboratories daily. Morphine and Ativan as needed for pain/air hunger control. SCD to BLE for PPX. Discuss advance directives with patient's , he does wish to be a do not resuscitate. At time of discharge medical care will return to primary care provider, Jannet Yadav APRN at . 03/31/18 Repeat CXR showing left lung expansion with chest tube, reexpansion edema. Saturating well with Vapotherm. Will stop IVF as patient eating well. Continue to hold ASA due to chest tube. Encourage ambulation with nursing assistance. Repeat CXR in am due to chest tube. Medically stable for transfer to surgical floor for continuation of chest tube care and support.
--- NOTE | 2018-03-31 14:18 | Progress Note ---
DATE 03/31/2018 POSTOP DAY #1 HISTORY The patient is in the intensive care unit at this time. He is sitting up in bed. He is alert and oriented. He does not have any dyspnea or shortness of breath at this time. PHYSICAL EXAMINATION VITAL SIGNS: Pulse is 68. Respiratory rate is 23. Oxygen saturation is 95% with the patient receiving oxygen. CHEST: The patient does have bilateral lung sounds. No wheezes, rales or rhonchi at this time. IMAGING DATA The patient did have a portable upright chest x-ray this morning. This does show good position of the chest tube and complete re-expansion of the left lung. IMPRESSION Doing well following insertion of left-sided chest tube for treatment of large left-sided pneumothorax on 03/30/2018 with complete re-expansion of the left lung at this time. PLAN Continue treatment of pneumothorax with chest tube until the hole in the lung has a chance to heal over. MTDD
[2018-03-31] MEDS: Oxycodone *IR* 5 MG TABLET PO PRN (20:04)
[2018-03-31] MEDS: ATORVASTATIN 40 MG TABLET PO SCH (20:05)
[2018-03-31] MEDS: OLANZapine 2.5 MG TABLET PO SCH (20:05)
[2018-03-31] MEDS: MIRTAZAPINE 15 MG TABLET PO SCH (20:06)
[2018-04-01] MEDS ORDERED: HALOPERIDOL 5 MG/ML INJECTION IVP ONE (06:09)
[2018-04-01] MEDS: Oxycodone *IR* 5 MG TABLET PO PRN ×2 (06:17→09:57)
[2018-04-01] MEDS: ALBUTEROL/IPRATROPIUM 2.5mg-0.5mg/3ml NEB AEROSOL SCH ×4 (06:32→19:00)
[2018-04-01] MEDS: IBUPROFEN 200 MG TABLET PO PRN (09:56)
[2018-04-01] MEDS: POLYETHYL GLYCOL 3350 17gm PACKET PO SCH (09:59)
[2018-04-01] MEDS: ATENOLOL 50 MG TABLET PO SCH (10:09)
--- NOTE | 2018-04-01 12:33 | Progress Note ---
DATE 04/01/2018 POSTOP DAY #2 HISTORY The patient has been transferred from the intensive care unit out to a room on the surgical unit. He is resting comfortably in his bed at this time. He is not having any dyspnea or shortness breath. PHYSICAL EXAMINATION VITAL SIGNS: Respiratory rate is 18. Oxygen saturation is 99% with oxygen administration at this time. CHEST: The patient has good bilateral breath sounds. No wheezes, rales or rhonchi. IMAGING DATA The patient did have a portable upright chest x-ray this morning. This does show good position of the chest tube with continued complete expansion of the left lung. IMPRESSION Doing well following insertion of left-sided chest tube for treatment of a large left-sided pneumothorax on 03/30/2018. PLAN Continue treatment of pneumothorax with chest tube yet at this time. ALLISOND
--- NOTE | 2018-04-01 20:11 | Progress Note ---
- Date 04/01/18 Subjective: F/U: Pneumothorax, acute on chronic respiratory failure Grumpy this evening-too much going on this morning. Not engaging in conversation well this evening. Not reporting significant pain with chest tube. Breathing fair. Objective Vital signs: Temperature 97.6 F 04/01/18 16:08 Pulse Rate 54 L 04/01/18 16:08 Respiratory Rate 22 04/01/18 19:00 Blood Pressure 126/57 04/01/18 16:08 Pulse Oximetry 95 04/01/18 19:00 Height/Weight/BMI: Height 1.8 m Weight 88 kg Body Mass Index 27.0 - Constitutional Present: well nourished, well developed, average body habitus - Routine HEENT Exam Head: Present: normocephalic, atraumatic Eye: Present: EOMI, PERRL ENT: Present: mucous membranes moist - Routine Respiratory Exam Present: decreased breath sounds. Absent: respiratory distress - Routine Cardiovascular Exam Present: RRR, no murmur - Routine Abdominal Exam Present: soft, non distended, non tender. Absent: normoactive bowel sounds ( decreased) - Routine Extremities Exam Absent: cyanosis, clubbing - Routine Musculoskeletal Exam Musculoskeletal: Present: no clubbing or cyanosis - Routine Skin Exam Present: dry, warm - Routine Neurological Exam Present: alert, moving all extremities, vision grossly intact, hearing grossly intact, normal speech - Routine Psychiatric Exam Absent: anxious, agitated, paranoid Results - Labs CBC & Chem 7: 04/01/18 07:13 04/01/18 07:13 Microbiology Results: Microbiology 03/30/18 12:50 Peripheral/Iv Start Blood Culture - Preliminary No Growth After 2 Days 03/30/18 12:50 Peripheral/Iv Start Blood Culture - Preliminary No Growth After 2 Days 03/31/18 06:27 Urine, Voided (Cc/notcc) Urine Culture - Preliminary No Growth After 1 Day Assessment and Plan (1) Pneumothorax on left Current visit: Yes Status: Acute Assessment and Plan: Impression Left-sided pneumothorax COPD-chronic oxygen use at 2 liters Hyperkalemia (POA) - resolved Leukocytosis (POA) - possible secondary to Solu-Medrol/stress Coronary artery disease Dyslipidemia Chronic tobacco [id number]-year Macular degeneration Plan Continue with chest tube decompression - repeat CXR this am showing stability. Continue pulmonary care and toilet. Will recheck lab and CXR in am. Case discussed with Dr Kaur this am. DVT Prophylaxis: SCD's Resuscitation Status: Do Not Resuscitate - Time spent with patient Time with patient PN: 15 minutes - Physician Narrative Physician: Bryan Herndon MD Narrative: Date: 04/01/18 Time: 2006 Hospital Course Summary Disclaimer: The visit summary below is not to be considered part of the above Progress Note. Hospital Course: 03/30/18 Admit patient, inpatient status under care of Dr. Herndon to ICU for acute left-sided pneumothorax. Consultation placed to Dr. Kaur for placement of chest tube. Will continue on BiPAP for oxygenation. DuoNeb breathing treatments 4 times a day and prn. Monitor patient on cardiac telemetry. Half-normal saline at 75 ml/hr for gentle hydration. Pt currently NPO - but will review and continue home meds, holding ASA due to chest tube. Atenolol for hypertension. Hold lisinopril due to hyperkalemia. Patient may require nicotine patch given long-time use of tobacco. Monitor routine laboratories daily. Morphine and Ativan as needed for pain/air hunger control. SCD to BLE for PPX. Discuss advance directives with patient's , he does wish to be a do not resuscitate. At time of discharge medical care will return to primary care provider, Jannet Yadav APRN at . 03/31/18 Repeat CXR showing left lung expansion with chest tube, reexpansion edema. Saturating well with Vapotherm. Will stop IVF as patient eating well. Continue to hold ASA due to chest tube. Encourage ambulation with nursing assistance. Repeat CXR in am due to chest tube. Medically stable for transfer to surgical floor for continuation of chest tube care and support. 04/01/18 Continue with chest tube decompression - repeat CXR this am showing stability. Continue pulmonary care and toilet. Will recheck lab and CXR in am.
[2018-04-01] MEDS: ATORVASTATIN 40 MG TABLET PO SCH (21:03)
[2018-04-01] MEDS: OLANZapine 2.5 MG TABLET PO SCH (21:03)
[2018-04-01] MEDS: MIRTAZAPINE 15 MG TABLET PO SCH (21:03)
[2018-04-02] MEDS: ALBUTEROL/IPRATROPIUM 2.5mg-0.5mg/3ml NEB AEROSOL SCH ×4 (07:04→20:15)
[2018-04-02] MEDS: ATENOLOL 50 MG TABLET PO SCH (08:47)
[2018-04-02] MEDS: POLYETHYL GLYCOL 3350 17gm PACKET PO SCH (08:47)
[2018-04-02] MEDS: 1/2 NS 1,000 ML IV SCH (09:41)
--- NOTE | 2018-04-02 13:52 | XRay Report ---
Indication: F/U pneumothorax/chest tube PROCEDURE: XR chest 1V: Encounter: Initial Comparison: March 31, 2018 Findings: Left chest tube remains in place. No visible pneumothorax. Bilateral basilar atelectasis. Mild residual edema in the left lung. Heart size and mediastinal contours are stable. Pulmonary vascularity is mildly congested. Impression: No pneumothorax with left chest tube. Mild pulmonary vascular congestion or edema. .
--- NOTE | 2018-04-02 13:59 | Progress Note ---
- Date 04/02/18 Subjective: F/U: Pneumothorax, acute on chronic respiratory failure Doing well overall. Breathing stable-not hurting with breathing. Not having increased cough/congestion. Eating well. No ab pain or nausea. Reports bowels moving well. Not having f/c. Not able to be up much secondary all the wired ( tele, O2, Chest tube). Objective Vital signs: Temperature 97.4 F 04/02/18 12:00 Pulse Rate 65 04/02/18 12:00 Respiratory Rate 20 04/02/18 12:00 Blood Pressure 137/80 04/02/18 12:00 Pulse Oximetry 96 04/02/18 13:00 Height/Weight/BMI: Height 1.8 m Weight 89 kg Body Mass Index 27.0 - Constitutional Present: well nourished, well developed, average body habitus, cooperative - Routine HEENT Exam Head: Present: normocephalic, atraumatic Eye: Present: EOMI, PERRL, normal accommodation ENT: Present: mucous membranes moist - Routine Respiratory Exam Present: decreased breath sounds, distant breath sounds. Absent: respiratory distress, wheezes, crackles - Routine Cardiovascular Exam Present: RRR, no murmur - Routine Abdominal Exam Present: soft, normoactive bowel sounds, non distended, non tender. Absent: guarding - Routine Extremities Exam Present: pulses intact. Absent: cyanosis, clubbing - Routine Musculoskeletal Exam Musculoskeletal: Present: no clubbing or cyanosis - Routine Skin Exam Present: dry, warm - Routine Neurological Exam Present: alert, CN II-XII intact, moving all extremities, vision grossly intact , hearing grossly intact, normal speech. Absent: motor deficit, altered mental status - Routine Psychiatric Exam Present: normal affect, cooperative. Absent: anxious, agitated Results - Labs CBC & Chem 7: 04/02/18 04:39 04/02/18 04:39 Microbiology Results: Microbiology 03/30/18 12:50 Peripheral/Iv Start Blood Culture - Preliminary No Growth After 3 Days 03/30/18 12:50 Peripheral/Iv Start Blood Culture - Preliminary No Growth After 3 Days 03/31/18 06:27 Urine, Voided (Cc/notcc) Urine Culture - Final No Growth After 2 Days Assessment and Plan (1) Pneumothorax on left Current visit: Yes Status: Acute Assessment and Plan: Impression Left-sided pneumothorax COPD-chronic oxygen use at 2 liters Hyperkalemia (POA) - resolved Leukocytosis (POA) - possible secondary to Solu-Medrol/stress Coronary artery disease Dyslipidemia Chronic tobacco [id number]-year Macular degeneration Plan Continue with chest tube decompression - Chest X-ray stable. Respiratory status stable. Potassium normalized, creatinine stable - will restart lisinopril. Will recheck lab and CXR in am. Hope to have chest tube removed in the next 1-2 days. Case discussed with Dr Kaur this am. DVT Prophylaxis: SCD's Resuscitation Status: Do Not Resuscitate - Time spent with patient Time with patient PN: 25 minutes - Physician Narrative Physician: Bryan Herndon MD Narrative: Date: 04/02/18 Time: 1356 Hospital Course Summary Disclaimer: The visit summary below is not to be considered part of the above Progress Note. Hospital Course: 03/30/18 Admit patient, inpatient status under care of Dr. Herndon to ICU for acute left-sided pneumothorax. Consultation placed to Dr. Kaur for placement of chest tube. Will continue on BiPAP for oxygenation. DuoNeb breathing treatments 4 times a day and prn. Monitor patient on cardiac telemetry. Half-normal saline at 75 ml/hr for gentle hydration. Pt currently NPO - but will review and continue home meds, holding ASA due to chest tube. Atenolol for hypertension. Hold lisinopril due to hyperkalemia. Patient may require nicotine patch given long-time use of tobacco. Monitor routine laboratories daily. Morphine and Ativan as needed for pain/air hunger control. SCD to BLE for PPX. Discuss advance directives with patient's , he does wish to be a do not resuscitate. At time of discharge medical care will return to primary care provider, Jannet Yadav APRN at . 03/31/18 Repeat CXR showing left lung expansion with chest tube, reexpansion edema. Saturating well with Vapotherm. Will stop IVF as patient eating well. Continue to hold ASA due to chest tube. Encourage ambulation with nursing assistance. Repeat CXR in am due to chest tube. Medically stable for transfer to surgical floor for continuation of chest tube care and support. 04/01/18 Continue with chest tube decompression - repeat CXR this am showing stability. Continue pulmonary care and toilet. Will recheck lab and CXR in am. 04/02/18 Continue with chest tube decompression - Chest X-ray stable. Respiratory status stable. Potassium normalized, creatinine stable - will restart lisinopril.
--- NOTE | 2018-04-02 14:04 | XRay Report ---
Indication: F/U pneumothorax PROCEDURE: XR chest 1V: Encounter: Initial Comparison: April 01, 2018 Findings: Left chest tube remains in stable position. No pneumothorax seen. Persistent airspace opacities in both lower lobes. Trace right effusion. Heart size, pulmonary vascularity and mediastinal contours are stable. Impression: No pneumothorax with left chest tube. .
[2018-04-02] MEDS: Oxycodone *IR* 5 MG TABLET PO PRN (14:47)
[2018-04-02] MEDS: LISINOPRIL 20 MG TABLET PO SCH (14:47)
--- NOTE | 2018-04-02 18:07 | Progress Note ---
DATE 04/02/2018 POSTOP DAY #3 HISTORY The patient is in his bed in his room on the surgical unit. He is not having any dyspnea or shortness of breath at this time. PHYSICAL EXAMINATION VITAL SIGNS: Pulse is 68. Respiratory rate is 14. Oxygen saturation is 96% on high-flow oxygen. CHEST: The patient has good bilateral breath sounds. There are good breath sounds on the left side. There are no wheezes, rales or rhonchi. LABORATORY DATA White blood cell count is 11,400 with no bands. Hemoglobin is 12.8. Hematocrit is 41.1. IMAGING DATA Portable upright chest x-ray shows good position of the chest tube on the left side. There is complete expansion of the left lung. IMPRESSION Doing well following insertion of left-sided chest tube for treatment of large left-sided pneumothorax on 03/30/2018. PLAN Continue treatment of pneumothorax with chest tube yet at this time. [facility]
[2018-04-02] MEDS: OLANZapine 2.5 MG TABLET PO SCH (20:45)
[2018-04-02] MEDS: ATORVASTATIN 40 MG TABLET PO SCH (20:45)
[2018-04-02] MEDS: MIRTAZAPINE 15 MG TABLET PO SCH (20:45)
[2018-04-03] MEDS: ALBUTEROL/IPRATROPIUM 2.5mg-0.5mg/3ml NEB AEROSOL SCH ×4 (06:33→20:01)
[2018-04-03] MEDS: ATENOLOL 50 MG TABLET PO SCH (09:07)
[2018-04-03] MEDS: POLYETHYL GLYCOL 3350 17gm PACKET PO SCH (09:07)
[2018-04-03] MEDS: LISINOPRIL 20 MG TABLET PO SCH ×2 (09:11→13:40)
--- NOTE | 2018-04-03 09:45 | XRay Report ---
Indication: F/U pneumothorax PROCEDURE: XR chest 1V: Encounter: Initial Comparison: 04/02/2018 Findings: Is a left-sided chest tube in place without definite residual pneumothorax. Patient is status post median sternotomy. There is persistent opacity in the inferior medial right lung base. No definite pleural effusion. Heart size is normal. No mediastinal or hilar adenopathy. The trachea is midline. No subdiaphragmatic free air. Impression: No definite residual pneumothorax with left-sided chest tube in place. Persistent opacity in the inferior medial right lung base. .
--- NOTE | 2018-04-03 10:10 | Progress Note ---
- Date 04/03/18 Subjective: Mr Marino is seen this morning, he is up eating breakfast. He is alert and pleasant. Denies having shortness of breath. Has had a productive cough with some thick dark colored sputum. Chest tube remains intact without complications. Fab remains on 8 liters of flow oxygen. Denies chest pain or abdominal complaints. Appetite is good, he is voiding without difficulty, last bowel movement reported to be 03/31. Objective Vital signs: Temperature 96.1 F L 04/03/18 07:00 Pulse Rate 56 L 04/03/18 08:00 Respiratory Rate 20 04/03/18 07:00 Blood Pressure 148/73 H 04/03/18 07:00 Pulse Oximetry 92 04/03/18 07:00 Height/Weight/BMI: Height 1.8 m Weight 89 kg Body Mass Index 27.0 - Constitutional Present: no acute distress, well nourished, well developed - Routine HEENT Exam Eye: Present: EOMI ENT: Present: mucous membranes moist, dentition normal - Routine Respiratory Exam Present: CTA bilaterally. Absent: wheezes - Routine Cardiovascular Exam Present: RRR, S1, S2. Absent: murmur Comments: Left chest wall with chest tube intact. - Routine Abdominal Exam Present: soft, normoactive bowel sounds, non distended. Absent: tenderness - Routine Extremities Exam Present: full ROM, normal capillary refill - Routine Back/Spine/Pelvis Exam Back/Spine: Present: full ROM - Routine Skin Exam Present: intact, dry, warm - Routine Neurological Exam Present: alert, oriented X3, CN II-XII intact, moving all extremities - Routine Lymphatic Exam Lymphatic: Absent: adenopathy - Routine Psychiatric Exam Present: normal affect, normal thought process, cooperative Results - Labs CBC & Chem 7: 04/03/18 03:50 04/03/18 03:50 Microbiology Results: Microbiology 03/30/18 12:50 Peripheral/Iv Start Blood Culture - Preliminary No Growth After 3 Days 03/30/18 12:50 Peripheral/Iv Start Blood Culture - Preliminary No Growth After 3 Days 03/31/18 06:27 Urine, Voided (Cc/notcc) Urine Culture - Final No Growth After 2 Days Assessment and Plan (1) Pneumothorax on left Current visit: Yes Status: Acute Assessment and Plan: Impression Left-sided pneumothorax 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 Hopeful for removal of tube in the next 1-[address] Kaur Work on weaning down oxygen as able. Baseline home oxygen 2 liters chronically Continue with scheduled DuoNeb breathing treatments. Patient was noted to be bradycardic. Continue with atenolol in the morning and change lisinopril to 20 milligram daily at 1300 Overall labs have been stable, leukocytosis resolved, hemoglobin stable Noted Sodium slightly up to 147. Potassium normal. Discussed with attending, Dr Minaya DVT Prophylaxis: SCD's Resuscitation Status: Do Not Resuscitate - Time spent with patient Time with patient PN: 35 minutes - Physician Narrative Physician: Kajal Minaya MD Narrative: Date: 04/03/18 Time: 1002 I have independently interviewed and examined patient. Patient chart reviewed. Case discussed with my CERTIFIED [employer] TECHNICIAN. Care plan developed with my supervision, agree with above. The patient awake, alert, responds appropriately to verbal queries. Reports some left-sided chest wall pain on moving otherwise no reported chest pain. No shortness of breath. Patient required up to 10 L supplemental oxygen via high flow nasal cannula last night, earlier this morning 8 L supplemental oxygen and at the time of interview, patient has oxygen saturations presented on 4 L via nasal cannula. Later in the day, nursing staff called hospitalist team about patient being agitated, aggressive, confused. At the time of evaluation at bedside, patient reports that he is aware about having pneumothorax and about chest tube placement however as stated about why he needs to remain in the hospital. Discussed with patient about tentative plans from general surgeon, Dr. Kaur who is planning on discontinuing chest tube tomorrow, patient verbalized understanding. Patient on when necessary Haldol dose as needed for agitation. Physical exam: AAO x 3, NAD PERRLA, EOMI S1 and S2 heard on auscultation, no murmurs. Left-sided chest tube in place. Lungs clear to auscultation bilaterally, no wheezing, no crackles Abdomen soft, nontender, positive bowel sounds No edema bilateral lower extremities. 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 Leukocytosis, resolved. Coronary artery disease, nicotine dependence, macular degeneration, dyslipidemia. Plan: Repeat chest x-ray shows stable changes without worsening of pneumothorax. General surgeon, Dr. Kaur will decide regarding discontinuing chest tube, hopefully within the next 12 days. We will switch atenolol 50 mg in the morning and lisinopril will be 20 mg in the afternoon following lunch. Continue DuoNeb nebulization treatment. Hospital Course Summary Disclaimer: The visit summary below is not to be considered part of the above Progress Note. Hospital Course: 03/30/18 Admit patient, inpatient status under care of Dr. Herndon to ICU for acute left-sided pneumothorax. Consultation placed to Dr. Kaur for placement of chest tube. Will continue on BiPAP for oxygenation. DuoNeb breathing treatments 4 times a day and prn. Monitor patient on cardiac telemetry. Half-normal saline at 75 ml/hr for gentle hydration. Pt currently NPO - but will review and continue home meds, holding ASA due to chest tube. Atenolol for hypertension. Hold lisinopril due to hyperkalemia. Patient may require nicotine patch given long-time use of tobacco. Monitor routine laboratories daily. Morphine and Ativan as needed for pain/air hunger control. SCD to BLE for PPX. Discuss advance directives with patient's , he does wish to be a do not resuscitate. At time of discharge medical care will return to primary care provider, Jannet Yadav APRN at . 03/31/18 Repeat CXR showing left lung expansion with chest tube, reexpansion edema. Saturating well with Vapotherm. Will stop IVF as patient eating well. Continue to hold ASA due to chest tube. Encourage ambulation with nursing assistance. Repeat CXR in am due to chest tube. Medically stable for transfer to surgical floor for continuation of chest tube care and support. 04/01/18 Continue with chest tube decompression - repeat CXR this am showing stability. Continue pulmonary care and toilet. Will recheck lab and CXR in am. 04/02/18 Continue with chest tube decompression - Chest X-ray stable. Respiratory status stable. Potassium normalized, creatinine stable - will restart lisinopril. 04/03/18 Continue with left sided chest tube for decompression - Chest X-ray repeated this morning appears stable. Hopeful for removal of tube in the next 1-[address] Kaur Work on weaning down oxygen as able. Baseline home oxygen 2 liters chronically Continue with scheduled DuoNeb breathing treatments. Patient was noted to be bradycardic. Continue with atenolol in the morning and change lisinopril to 20 milligram daily at 1300 Overall labs have been stable, leukocytosis resolved, hemoglobin stable Noted Sodium slightly up to 147. Potassium normal.
[2018-04-03] MEDS: SALINE FLUSH 10ml SYRINGE IVF PRN ×2 (13:40→15:04)
[2018-04-03] MEDS: HALOPERIDOL 5 MG/ML INJECTION IVP PRN (15:04)
--- NOTE | 2018-04-03 18:04 | Progress Note ---
DATE 04/03/2018 POSTOP DAY #4 HISTORY The patient is in his bed in his room on the surgical unit. He is not having any dyspnea or shortness of breath at this time. PHYSICAL EXAMINATION VITAL SIGNS: Temperature is 97.2 degrees Fahrenheit oral. Pulse is 58. Respiratory rate is 14. Blood pressure is 153/71. Oxygen saturation is 93% with the patient receiving high-flow oxygen. CHEST: The patient has good bilateral breath sounds. There are no wheezes, rales or rhonchi. IMAGING DATA Portable upright chest x-ray today shows good position of the chest tube on the left side. There is complete expansion of the left lung. IMPRESSION Doing well following insertion of left-sided chest tube for treatment of large left-sided pneumothorax on 03/30/2018. PLAN 1. Discontinue suction to the chest tube today. 2. Recheck chest x-ray tomorrow morning. 3. I may remove the chest tube tomorrow if the chest x-ray looks good tomorrow. LOU
[2018-04-03] MEDS: ATORVASTATIN 40 MG TABLET PO SCH (20:58)
[2018-04-03] MEDS: OLANZapine 2.5 MG TABLET PO SCH (20:58)
[2018-04-03] MEDS: MIRTAZAPINE 15 MG TABLET PO SCH (20:58)
[2018-04-04] MEDS: HALOPERIDOL 5 MG/ML INJECTION IVP PRN ×2 (01:48→14:12)
[2018-04-04] MEDS: ALBUTEROL/IPRATROPIUM 2.5mg-0.5mg/3ml NEB AEROSOL SCH ×4 (07:01→19:40)
--- NOTE | 2018-04-04 08:30 | XRay Report ---
Indication: left pneumothorax PROCEDURE: XR chest 1V: Encounter: Initial Comparison: April 03, 2018 Findings: Left chest tube remains in place. No visible pneumothorax. Improving aeration of the right lower lobe. Increased interstitial markings remaining in the left mid to lower lung field. Heart size and mediastinal contours are stable. Impression: No pneumothorax. Mild pulmonary vascular congestion. .
[2018-04-04] MEDS: ATENOLOL 50 MG TABLET PO SCH (10:15)
[2018-04-04] MEDS: POLYETHYL GLYCOL 3350 17gm PACKET PO SCH (10:15)
[2018-04-04] MEDS: SALINE FLUSH 10ml SYRINGE IVF PRN (14:17)
[2018-04-04] MEDS: LISINOPRIL 20 MG TABLET PO SCH (14:31)
[2018-04-04] MEDS ORDERED: KCL IV SCH (14:45)
[2018-04-04] MEDS ORDERED: 1/2 NS IV SCH (14:45)
--- NOTE | 2018-04-04 14:54 | XRay Report ---
Indication: CHEST TUBE REMOVAL PROCEDURE: XR chest 1V: Encounter: Initial Comparison: April 04, 2018 at 0648 Findings: Left chest tube has been removed. No visible pneumothorax. Improving aeration of the lung bases. Heart size and mediastinal contours are stable. Pulmonary vascularity is unchanged. Prior CABG. Impression: No pneumothorax following left chest tube removal. .
--- NOTE | 2018-04-04 14:59 | Progress Note ---
- Date 04/04/18 Subjective: Fab is seen today immediately after having his chest tube removed. Nursing reports he became very agitated and required haldol and morphine prior to my exam. He is alert and denies any specific complaints. He is noted to be coughing on exam. Awaiting stat post-chest tube removal x-ray. Recurrent leukocytosis today (WBC 11.4). Remains afebrile. Hemoglobin stable. Persistent hypernatremia. UA culture remains negative x 2 days. Objective Vital signs: Temperature 96.9 F 04/04/18 11:51 Pulse Rate 57 L 04/04/18 14:35 Respiratory Rate 26 H 04/04/18 14:35 Blood Pressure 107/62 04/04/18 14:35 Pulse Oximetry 91 04/04/18 14:35 Rhythm: Sinus Bradycardia Height/Weight/BMI: Height 5 ft 11 in Weight 191 lb 12.835 oz Body Mass Index 27.0 Comments: Sitting up in bed, s/p chest tube removal. - Constitutional Present: agitated Comments: Coughing. Just received Haldol and morphine due to agitation. - Routine Respiratory Exam Present: decreased breath sounds, wheezes (clear with cough) - Routine Cardiovascular Exam Present: S1, S2, bradycardia - Routine Abdominal Exam Present: soft, normoactive bowel sounds, non tender - Routine Extremities Exam Present: no edema, pulses intact - Routine Back/Spine/Pelvis Exam Back/Spine: Present: full ROM. Absent: vertebral tenderness - Routine Musculoskeletal Exam Musculoskeletal: Present: no clubbing or cyanosis, moving extremities well - Routine Skin Exam Present: dry, warm Comments: Afebrile. New bandage applied to chest s/p chest tube removal and note removed on exam. - Routine Neurological Exam Present: alert, moving all extremities, hearing grossly intact, normal speech - Routine Lymphatic Exam Lymphatic: Absent: lymphedema - Routine Psychiatric Exam Present: cooperative, agitated Results - Labs CBC & Chem 7: 04/04/18 03:47 04/04/18 03:47 Microbiology Results: Microbiology 03/30/18 12:50 Peripheral/Iv Start Blood Culture - Final No Growth After 5 Days 03/30/18 12:50 Peripheral/Iv Start Blood Culture - Final No Growth After 5 Days 03/31/18 06:27 Urine, Voided (Cc/notcc) Urine Culture - Final No Growth After 2 Days Assessment and Plan (1) Pneumothorax on left Current visit: Yes Status: Acute Assessment and Plan: Impression S/P chest tube removal 04/04/18 Left-sided pneumothorax 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 Kaur immediately prior to exam. Stat CXR pending. Increased agitation requiring Haldol and morphine prior to exam. Currently on oxygen but will continue working on weaning. Baseline home oxygen 2 L chronically Continue with scheduled DuoNeb breathing treatments. Persistent bradycardia. Medication dosing schedule adjusted so that Atenolol 50mg in AM with lisinopril 20mg in afternoon. Continue to monitor closely on telemetry. Recurrent leukocytosis (WBC 11.4). Patient afebrile. Monitor closely. Persistent hypernatremia (Na 147). Will give 1/2NS 500cc at 125cc/hr and continue to monitor labs. Anticipate discharge in near future, hopefully tomorrow, 04/05/18. DVT Prophylaxis: SCD's Resuscitation Status: Do Not Resuscitate - Time spent with patient Time with patient PN: 25 minutes - Physician Narrative Physician: Kajal Minaya MD Narrative: Date: 04/04/18 Time: 046 I have independently interviewed and examined patient. Patient chart reviewed. Case discussed with my PA. Care plan developed with my supervision, agree with above. Patient had another episode of agitation, aggressive behavior earlier today while Dr. Kaur was attempting to remove chest tube. At the time, patient received 1 dose of IV Haldol 0.5 mg and also 2 mg IV morphine following which symptoms of aggressive behavior resolved. At the time of evaluation at bedside, patient is alert, oriented to self, place and person. Answers questions appropriately. Case discussed with patient's son, Mr. Fab Joseph over the phone at [phone] and update given over patient's present condition. Following removal of chest tube, repeat chest x-ray showed good expansion of lung arvizu without any discernible evidence of recurrence of pneumothorax. Physical exam: Alert, oriented to self, place and person, in minimal distress secondary to left -sided chest wall pain. PERRLA, EOMI S1 and S2 heard on auscultation, no murmurs Lungs clear to auscultation bilaterally, no wheezing, no crackles Abdomen soft, nontender, positive bowel sounds No edema bilateral lower extremities. 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 Episodes of agitation, confusion. Concern for underlying dementia. Leukocytosis , resolved. Coronary artery disease, nicotine dependence, macular degeneration, dyslipidemia. Plan: Chest tube discontinued by general surgeon, Dr. Kaur. Repeat chest x- ray does not show any evidence of recurrence of pneumothorax. Serum sodium 147, will provide 500 mL IV half normal saline over 4 hours. Will monitor electrolyte levels. Symptoms of agitation, aggressive behavior resolved after dose of IV Haldol 0.5 mg and IV morphine 2 mg. Case discussed with patient's son over the phone, Request sleep aid and medicine as needed for anxiety at the time of discharge. Hospital Course Summary Disclaimer: The visit summary below is not to be considered part of the above Progress Note. Hospital Course: 03/30/18 Admit patient, inpatient status under care of Dr. Herndon to ICU for acute left-sided pneumothorax. Consultation placed to Dr. Kaur for placement of chest tube. Will continue on BiPAP for oxygenation. DuoNeb breathing treatments 4 times a day and prn. Monitor patient on cardiac telemetry. Half-normal saline at 75 ml/hr for gentle hydration. Pt currently NPO - but will review and continue home meds, holding ASA due to chest tube. Atenolol for hypertension. Hold lisinopril due to hyperkalemia. Patient may require nicotine patch given long-time use of tobacco. Monitor routine laboratories daily. Morphine and Ativan as needed for pain/air hunger control. SCD to BLE for PPX. Discuss advance directives with patient's , he does wish to be a do not resuscitate. At time of discharge medical care will return to primary care provider, Jannet Yadav APRN at . 03/31/18 Repeat CXR showing left lung expansion with chest tube, reexpansion edema. Saturating well with Vapotherm. Will stop IVF as patient eating well. Continue to hold ASA due to chest tube. Encourage ambulation with nursing assistance. Repeat CXR in am due to chest tube. Medically stable for transfer to surgical floor for continuation of chest tube care and support. 04/01/18 Continue with chest tube decompression - repeat CXR this am showing stability. Continue pulmonary care and toilet. Will recheck lab and CXR in am. 04/02/18 Continue with chest tube decompression - Chest X-ray stable. Respiratory status stable. Potassium normalized, creatinine stable - will restart lisinopril. 04/03/18 Continue with left sided chest tube for decompression - Chest X-ray repeated this morning appears stable. Hopeful for removal of tube in the next 1-[address] Kaur Work on weaning down oxygen as able. Baseline home oxygen 2 liters chronically Continue with scheduled DuoNeb breathing treatments. Patient was noted to be bradycardic. Continue with atenolol in the morning and change lisinopril to 20 milligram daily at 1300 Overall labs have been stable, leukocytosis resolved, hemoglobin stable Noted Sodium slightly up to 147. Potassium normal. 04/04/18 Chest tube removed by Dr. Kaur immediately prior to exam. Stat CXR pending. Increased agitation requiring Haldol and morphine prior to exam. Currently on oxygen but will continue working on weaning. Baseline home oxygen 2 L chronically Continue with scheduled DuoNeb breathing treatments. Persistent bradycardia. Medication dosing schedule adjusted so that Atenolol 50mg in AM with lisinopril 20mg in afternoon. Continue to monitor closely on telemetry. Recurrent leukocytosis (WBC 11.4). Patient afebrile. Monitor closely. Persistent hypernatremia (Na 147). Will give 1/2NS 500cc at 125cc/hr and continue to monitor labs. Anticipate discharge in near future, hopefully tomorrow, 04/05/18.
--- NOTE | 2018-04-04 15:52 | Progress Note ---
DATE 04/04/2018 POSTOP DAY #5 HISTORY The patient is in his bed in his room on the surgical unit. The patient has had some confusion and disorientation during the last 24 hours. He has been receiving some Haldol. PHYSICAL EXAMINATION VITAL SIGNS: Temperature is 96.9 degrees Fahrenheit oral. Pulse is 68. Respiratory rate is 18. Blood pressure is 107/59. Oxygen saturation is 92% on oxygen by nasal cannula. CHEST: The patient has good bilateral breath sounds. The chest tube site at the left chest looks good today at the time the chest tube was removed. IMAGING DATA Chest x-ray was performed this morning. This did show good expansion of the left lung with no pneumothorax. IMPRESSION Doing well following insertion of left-sided chest tube for treatment of large left-sided pneumothorax on 03/30/2018. TREATMENT I did remove the left chest tube today. I did have the patient undergo a portable upright chest x-ray after removal of the chest tube. This chest x-ray shows continued expansion of the left lung with no pneumothorax following removal of the chest tube. PLAN 1. Keep dressings in place at chest tube removal site. 2. Recheck chest x-ray tomorrow morning. LOU
[2018-04-04] MEDS ORDERED: POTASSIUM CHLORIDE IV SCH (17:15)
[2018-04-04] MEDS ORDERED: NS IV SCH (17:15)
[2018-04-04] MEDS: OLANZapine 2.5 MG TABLET PO SCH (20:07)
[2018-04-04] MEDS: MIRTAZAPINE 15 MG TABLET PO SCH (20:07)
[2018-04-04] MEDS: ATORVASTATIN 40 MG TABLET PO SCH (20:07)
[2018-04-05] MEDS: ALBUTEROL/IPRATROPIUM 2.5mg-0.5mg/3ml NEB AEROSOL SCH ×3 (07:06→15:45)
[2018-04-05] MEDS: ATENOLOL 50 MG TABLET PO SCH (08:11)
[2018-04-05] MEDS: POLYETHYL GLYCOL 3350 17gm PACKET PO SCH (08:12)
[2018-04-05] MEDS: SALINE FLUSH 10ml SYRINGE IVF PRN (08:13)
--- NOTE | 2018-04-05 09:14 | XRay Report ---
Indication: left pneumothorax PROCEDURE: XR chest 1V: Encounter: Initial Comparison: April 04, 2018 Findings: No visible pneumothorax. Aeration of the left lung continues to improve. Mild right basilar atelectasis and small right pleural effusion. Heart size and mediastinal contours are stable. Poststernotomy changes. Pulmonary vascularity is stable. Impression: No pneumothorax. .
[2018-04-05 10:52] VITALS: RESP 22
[2018-04-05 11:32] VITALS: BP 125/66; PULSE 70; TEMP 96.5
[2018-04-05] MEDS: LISINOPRIL 20 MG TABLET PO SCH (13:40)
--- NOTE | 2018-04-05 14:12 | Extended Care Facility Orders ---
<Anusha Peacock V - Last Filed: 04/05/18 14:11> Admission Orders Admit to:: Senior Living Allergies/Adverse Reactions: Allergies No Known Allergies Allergy (Verified 03/30/18 12:19) Admitting Diagnosis: Respiratory failure secondary to pneumothorax Admitting Physician: Kajal Minaya MD Attending Physician: Kajal Minaya MD Code Status: Do Not Resuscitate Anticiapted Length of Stay: 30 days or less Rehab Potential: fair Rehab Prognosis: fair Diet: Regular diet May use Facility Protocol or Standing Orders: Yes May have flu vaccine: Yes Evaluations/Treatment: PT, OT Senior Living Certification: I certify that SNF services are required to be given on an inpatient basis because of the patient's need for [facility] care on a continuing basis for the condition(s) for which he/she received inpatient hospital services prior to his/her transfer to the SNF. SNF inpatient care is necessary for the following reasons: Indication for Senior Living: Other (PT,OT) - Additional Information Referrals: Jannet Parks APRN [Primary Care Provider] - (Schedule follow-up appointment for one week) Tristen Kaur MD [Physician] - (Schedule follow-up appointment for 2 weeks) Additional Orders: Oxygen at 4 liters. May wean as able to keep sats >92% <Kajal Minaya - Last Filed: 04/05/18 15:33> Admission Orders Admitting Diagnosis: Respiratory failure secondary to pnemothorax Admitting Physician: Kajal Minaya MD Attending Physician: Kajal Minaya MD Code Status: Do Not Resuscitate Diet: 03/30/18 Dinner Regular Diet [DIET] Diet Modifications: Senior Living Certification: I certify that SNF services are required to be given on an inpatient basis because of the patient's need for [facility] care on a continuing basis for the condition(s) for which he/she received inpatient hospital services prior to his/her transfer to the SNF. SNF inpatient care is necessary for the following reasons:
--- NOTE | 2018-04-05 14:17 | Discharge Summary ---
Discharge Information Date of admission: 03/30/18 15:20 Anticipated date of discharge: 04/05/18 Attending Physician: Kajal Minaya MD Primary care physician: Jannet Parks APRN Consults: Dr. Hackett-General Surgeon - Discharge Diagnosis (1) Pneumothorax on left Status: Acute Problems Reviewed?: Yes S/P chest tube removal 04/04/18 Left-sided pneumothorax COPD-chronic oxygen use at 2 liters Hyperkalemia (POA) - resolved Leukocytosis (POA) - possible secondary to Solu-Medrol/stress Coronary artery disease Dyslipidemia Chronic tobacco [id number]-year Macular degeneration - Procedures Procedures: 04/04/18-placement of left-sided chest tube - Laboratory Labs: 04/05/18 04:19 04/05/18 04:19 - Microbiology Microbiology 03/30/18 12:50 Peripheral/Iv Start Blood Culture - Final No Growth After 5 Days 03/30/18 12:50 Peripheral/Iv Start Blood Culture - Final No Growth After 5 Days 03/31/18 06:27 Urine, Voided (Cc/notcc) Urine Culture - Final No Growth After 2 Days - Radiology Radiology: 03/30/18- CT chest- Impression: Large left-sided pneumothorax with complete collapse of the left lung and possible early or developing tension physiology. Recommend emergent needle thoracostomy or chest tube placement. Chest Xray- Impression: 1. New left chest tube with evacuation of the left pneumothorax. 2. Endotracheal tube appears appropriately positioned. 3. Nasogastric tube tip projects over the lower thoracic esophagus, recommended advancement. 03/31/18- Chest s-jdr-[id number]: No visible pneumothorax with left chest tube in place. Re-expansion edema. 04/01/18-chest x-ray-no pneumothorax with left-sided chest tube. Mild pulmonary vascular congestion. 04/02/18-chest x-ray-no pneumothorax with left-sided chest 04/03/18-chest r-[id number]: No definite residual pneumothorax with left- sided chest tube in place. Persistent opacity in the inferior medial right lung base. 04/04/18-chest x-ray-no pneumothorax following chest tube removal 04/05/18-chest x-ray-no pneumothorax - Pathology None History of Present Illness HPI: Patient is 77-year-old male who is known to the hospitalist services from recent [facility] for visual hallucinations. Patient was discharged yesterday 03/29/18. He went home with his in [place], [place]. He is chronically on 2 liters of oxygen by nasal cannula and had been doing fine until this morning. reports patient seemed more short of breath. Patient complained of feeling with increased dyspnea. His oxygen was turned up however, he continued to have shortness of breath. EMS was called and patient was found to be significantly hypoxic with saturations 73% on home O2. He was placed on 10 -12 L on arrival to ER sats were 80's. Chest CT reveled large left sided pneumothorax. He has been on Bi-pap since that time. Objective Vital signs: Temperature 96.5 F L 04/05/18 11:30 Pulse Rate 70 04/05/18 11:30 Respiratory Rate 22 04/05/18 11:30 Blood Pressure 125/66 04/05/18 11:30 Pulse Oximetry 94 04/05/18 11:30 Height/Weight/BMI: Height 1.8 m Weight 87.7 kg Body Mass Index 27.0 - Constitutional Present: no acute distress, well nourished, well developed - Routine HEENT Exam Eye: Present: EOMI ENT: Present: mucous membranes moist, dentition normal - Routine Respiratory Exam Present: diminished air movement. Absent: wheezes - Routine Cardiovascular Exam Present: RRR, S1, S2. Absent: murmur - Routine Abdominal Exam Present: soft, normoactive bowel sounds, non distended. Absent: tenderness - Routine Extremities Exam Present: normal capillary refill - Routine Skin Exam Present: intact, dry, warm - Routine Neurological Exam Present: alert, oriented X3, CN II-XII intact, moving all extremities - Routine Lymphatic Exam Lymphatic: Absent: adenopathy - Routine Psychiatric Exam Present: normal affect, cooperative Hospital Course This is a general summary of the patient's hospital course. For more details refer to the complete medical record. Hospital course: 03/30/18 Admit patient, inpatient status under care of Dr. Herndon to ICU for acute left-sided pneumothorax. Consultation placed to Dr. Hackett for placement of chest tube. Will continue on BiPAP for oxygenation. DuoNeb breathing treatments 4 times a day and prn. Monitor patient on cardiac telemetry. Half-normal saline at 75 ml/hr for gentle hydration. Pt currently NPO - but will review and continue home meds, holding ASA due to chest tube. Atenolol for hypertension. Hold lisinopril due to hyperkalemia. Patient may require nicotine patch given long-time use of tobacco. Monitor routine laboratories daily. Morphine and Ativan as needed for pain/air hunger control. SCD to BLE for PPX. Discuss advance directives with patient's , he does wish to be a do not resuscitate. At time of discharge medical care will return to primary care provider, Jannet Yadav APRN at . 03/31/18 Repeat CXR showing left lung expansion with chest tube, reexpansion edema. Saturating well with Vapotherm. Will stop IVF as patient eating well. Continue to hold ASA due to chest tube. Encourage ambulation with nursing assistance. Repeat CXR in am due to chest tube. Medically stable for transfer to surgical floor for continuation of chest tube care and support. 04/01/18 Continue with chest tube decompression - repeat CXR this am showing stability. Continue pulmonary care and toilet. Will recheck lab and CXR in am. 04/02/18 Continue with chest tube decompression - Chest X-ray stable. Respiratory status stable. Potassium normalized, creatinine stable - will restart lisinopril. 04/03/18 Continue with left sided chest tube for decompression - Chest X-ray repeated this morning appears stable. Hopeful for removal of tube in the next 1-[address] Hackett Work on weaning down oxygen as able. Baseline home oxygen 2 liters chronically Continue with scheduled DuoNeb breathing treatments. Patient was noted to be bradycardic. Continue with atenolol in the morning and change lisinopril to 20 milligram daily at 1300 Overall labs have been stable, leukocytosis resolved, hemoglobin stable Noted Sodium slightly up to 147. Potassium normal. 04/04/18 Chest tube removed by Dr. Hackett immediately prior to exam. Stat CXR pending. Increased agitation requiring Haldol and morphine prior to exam. Currently on oxygen but will continue working on weaning. Baseline home oxygen 2 L chronically Continue with scheduled DuoNeb breathing treatments. Persistent bradycardia. Medication dosing schedule adjusted so that Atenolol 50mg in AM with lisinopril 20mg in afternoon. Continue to monitor closely on telemetry. Recurrent leukocytosis (WBC 11.4). Patient afebrile. Monitor closely. Persistent hypernatremia (Na 147). Will give 1/2NS 500cc at 125cc/hr and continue to monitor labs. Anticipate discharge in near future, hopefully tomorrow, 04/05/18. 04/05/18-discharge Mr Marino is seen and examined today prior to discharge. He is continuing to require 4 liters of oxygen by nasal cannula to maintain adequate saturations. He does not appear to be in any acute distress. However, does have active coughing with auscultation. He denies having any pain. He verbalizes his eagerness to be discharged. He is seen and examined by PT and OT who recommended new for ongoing strengthening. Patient was accepted to [facility]. Continue all home medications and will add Zyprexa 1.25 milligrams by mouth as needed for agitation as recommended by Dr. Cruz and patient in recent admission to [facility]. Time spent with patient: discharge greater than 30 minutes Resuscitation Status: Do Not Resuscitate Discharge Plan - Discharge Disposition Discharge Date: 04/05/18 Disposition: 03 [place] SNU [place] [facility] *Condition: Stable Reason For Visit (Visit label in EMR): Respiratory failure secondary to pnemothorax - Discharge Medications *Discharge Medications: New Albuterol/Ipratropium [Duoneb] 3 ml AEROSOL Q4HR PRN each PRN Reason: Shortness Of Air OLANZapine [Zyprexa] 1.25 mg PO Q6HR PRN #10 tab PRN Reason: Agitation PEG 3350 17gm PACKET [Miralax] 17 gm PO DAILY packet Continue Atorvastatin [Lipitor] 40 mg PO HS #0 Aspirin [Aspirin EC] 81 mg PO HS Lisinopril [Prinivil] 20 mg PO DAILY Atenolol [Tenormin] 50 mg PO DAILY Vit A/Vit C/Vit E/Zinc/Copper [Preservision Areds Tablet] 1 tab PO BID Albuterol/Ipratropium [Duoneb] 1 unit AEROSOL TID Vitamin E (Dl,Tocopheryl Acet) [Vitamin E] 1,000 unit PO DAILY OLANZapine [Zyprexa] 2.5 mg PO HS 30 Days #30 tab Mirtazapine [Remeron] 15 mg PO HS Umeclidinium Brm/Vilanterol Tr [Anoro Ellipta 62.5-25 Mcg INH] 1 dose IH DAILY - Discharge Packet/Instructions *Diet: Regular diet *Activity: As tolerated *Pain Management/Treatment: Tylenol *Wound Care: PLEASE LEAVE DRESSING IN PLACE UNTIL FOLLOW UP WITH DR. HACKETT. PATIENT IS NOT TO SHOWER BUT CAN HAVE SPONGE BATH. PLEASE AVOID GETTING DRESSING WET IN ORDER TO KEEP IT IN PLACE. Additional Instructions: Oxygen currently at 4 liters *Expected Signs/Symptoms: Continued improvement in breathing and cough *Notify Physician if: Shortness of breath, chest pain, fever, chills, or other concerning symptoms *During Business Hours Contact: Jannet Yadav APRN or Dr Hackett *After Business Hours Contact: Present to ER *Pending Lab/Results: No Pending Lab - Referrals/Follow Up *Referrals/Follow Up: Jannet Parks APRN [Primary Care Provider] - (Schedule follow-up appointment for one week) Tristen Hackett MD [Physician] - (Schedule follow-up appointment for 2 weeks) - Patient Handouts Patient Handouts: Spontaneous Pneumothorax (DC), COPD (Chronic Obstructive Pulmonary Disease) (DC), Chronic Respiratory Failure (DC) - Dismissal Complete Discharge Instructions are:: Complete Physician Narrative - Narrative Physician: Kajal Minaya MD Attestation Narrative: Date: 04/05/18 Time: 1414 I have independently interviewed and examined patient. Patient chart reviewed. Case discussed with my [employer] CHIEF. Care plan developed with my supervision, agree with above. A 77-year-old male gentleman with history of Coronary artery disease, nicotine dependence, macular degeneration, dyslipidemia admitted with sudden onset shortness of breath and evidence of spontaneous left-sided pneumothorax, likely secondary to underlying burst emphysema bleb with history of tobacco use. Patient had chest tube placed by Dr. Hackett on the day of admission which was later removed on 04/04/2018. Repeat chest x-ray shows good aeration of lungs without recurrence of pneumothorax. During hospital stay, patient did demonstrate occasional agitation and aggressive behavior for which she needed when necessary doses of IV Haldol 0.5 mg. Physical therapy evaluated patient and recommendation for discharge to Snu for further physical therapy and rehabilitation. Patient will be discharged to [facility] for further rehabilitation. Case discussed with patient's family prior to discharge. Patient also started on Zyprexa 1.25 mg by mouth as needed every 6 hours for episodes of agitation or restlessness. Physical exam: Alert, oriented to self, place and person, not in acute distress PERRLA, EOMI S1 and S2 heard on auscultation, no murmurs Lungs clear to auscultation bilaterally, no wheezing, no crackles Abdomen soft, nontender, positive bowel sounds No edema bilateral lower extremities.
--- NOTE | 2018-04-05 14:37 | Progress Note ---
DATE 04/05/2018 POSTOP DAY #6 HISTORY The patient is not having any difficulty breathing at this time. PHYSICAL EXAMINATION VITAL SIGNS: Temperature is 96.5 degrees Fahrenheit oral. Pulse is 70. Respiratory rate is 22. Blood pressure is 125/66. Oxygen is 94% while receiving oxygen by nasal cannula. CHEST: The dressings over the chest tube site are all dry and in place. The patient has good bilateral breath sounds today. No wheezes, rales or rhonchi. IMAGING DATA The patient did have a portable upright chest x-ray today which shows complete expansion of the left lung with no pneumothorax. IMPRESSION 1. Doing well following insertion of left-sided chest tube for treatment of large left-sided pneumothorax on 03/30/2018. 2. Resolution of left pneumothorax. PLAN 1. Keep dressings in place at the chest tube removal site. 2. Followup office visit with Dr. Kaur next week to check the chest tube removal site and remove dressings and remove skin stitches at the chest tube site. 3. Plans are being made to discharge the patient from [facility] at this time. He may be going to a fci facility at the senior care at [place], [place]. [facility] MEDICAL CENTERDario
[2018-04-05] MEDS: IBUPROFEN 200 MG TABLET PO PRN (15:34)
[2018-04-05 15:57] VITALS: O2SAT 95
== END 2018-04-05 16:00 | DRG 191 ==
LOC: ED 12:16 → SUATTDRO 15:20 → EDHOLD 15:20 → CCU 16:15 → SRG 03-31 15:59
PROVIDERS: ADMIT Hospitalist; ATTEND Internal Medicine